=== PATIENT | male | born 1945 | race Caucasian/White ===

== ENCOUNTER 2016-09-08 15:27 | Emergency (ER) | payer OTHER ==
[~2016-09-08] VITALS: Ht 175.3 cm; Wt 97.0 kg
[~2016-09-08 15:27] MED LIST: ASPCH81X PO; ATV/1 PO; EFFSR75 PO; LORA10CA2 PO; OMEP20CA59 PO
[2016-09-08 15:36] VITALS: TEMP 37; Ht 175.3 cm; Wt 97.0 kg
[2016-09-08] MEDS ORDERED: MoRPHine SULFATE 10 MG/ML CARP/VIAL IV STA (15:57)
[2016-09-08] MEDS ORDERED: ONDANSETRON INJ 2 MG/ML 2 ML VIAL IV STA (15:57)
[2016-09-08] MEDS ORDERED: SODIUM CHLORIDE 0.9% 1000ML 1,000 ML IV ONE (16:00)
--- NOTE | 2016-09-08 16:15 | EMERGENCY ROOM VISIT NOTE ---
ED Visit Note First contact with patient: 15:44 I have seen and examined this patient with Hayder Stout and generally agree with the treatment plan as discussed. Current/Historical Medications Scheduled Aspirin (Aspirin Chewable), 81 MG PO QAM Omeprazole (Prilosec), 20 MG PO QAM Venlafaxine Hcl (Effexor Extended Rel), 75 MG PO QAM Scheduled PRN Loratadine (Claritin), 10 MG PO DAILY PRN for PRN Lorazepam (Ativan), 1 MG PO HS PRN for Sleep Allergies Coded Allergies: Penicillins (Unverified Allergy, Intermediate, RASH AND HIVES, 09/08/16) Amoxicillin (Verified Allergy, Unknown, HIVES, 09/08/16) Cefuroxime (Verified Allergy, Unknown, RASH, 09/08/16) Cyclobenzaprine (Unverified Adverse Reaction, Unknown, pt. experienced hallucinations,disorganized thoughts, 09/08/16) Vital Signs Date Time Temp Pulse Resp B/P Pulse Ox O2 Delivery O2 Flow Rate FiO2 09/08/16 15:36 37.0 96 18 139/95 96 Room Air Laboratory Results Test 09/08/16 15:57 Departure Information Referrals Pro,Shady Gipson M.D. (PCP) Patient Instructions My [facility]
[2016-09-08 16:23] LABS: BASO % 0.4 %; BASO ABS # 0.03 K/uL (0-0.2); COMPLETE YES; HEMATOCRIT 43.7 % (42-52); IG% 0.1 %; LYMPH % 31.7 %; MEAN CELL VOLUME 86.5 fL (80-100); MEAN CORPUSCULAR HEMOGLOBIN 30.5 pg (25-34); MEAN CORPUSCULAR HGB CONC 35.2 g/dl (32-36); MEAN PLATELET VOLUME 9.8 fL (7.4-10.4); MONO % 9.3 %; NEUT % 55.5 %; PLATELET COUNT 216 K/uL (130-400); RED BLOOD COUNT 5.05 M/uL (4.7-6.1); WHITE BLOOD COUNT 7.56 K/uL (4.8-10.8)
[2016-09-08 16:39] LABS: BUN/CREATININE RATIO 24.8 (10-20); C-REACTIVE PROTEIN 0.88 mg/dl (0-0.29); CALCIUM 8.9 mg/dl (8.5-10.1)
--- NOTE | 2016-09-08 17:28 | DIAGNOSTIC IMAGING REPORT ---
RIGHT HIP UNILATERAL 2 VIEWS CLINICAL HISTORY: Right hip pain. COMPARISON: None FINDINGS: There are scrotal surgical clips. Alignment of the right hip is anatomic. There is mild osteophytosis of the right hip. There is no evidence of avascular necrosis of the right femoral head. There is mild arthritis of the right sacroiliac joint. IMPRESSION: 1. No acute fracture or dislocation of the right hip. 2. Mild arthritis of the right hip and right sacroiliac joint. Electronically signed by: Ludwin Raza M.D. 09/08/2016 5:27 PM Dictated Date/Time: 09/08/2016 5:26 PM
[2016-09-08] MEDS ORDERED: HYDR-5688 PO (18:11)
[2016-09-08] MEDS ORDERED: NORCO 5/325MG HOME PACK PO ONE (18:15)
[2016-09-08 18:32] VITALS: BP 147/86; PULSE 76; O2SAT 96
--- NOTE | 2016-09-09 15:02 | EMERGENCY ROOM VISIT NOTE ---
ED Visit Note First contact with patient: 15:44 Chief Complaint: Right hip pain. History of Present Illness: Mr. Zimmer a 71-year-old white male who is brought into the ED via wheelchair complaining of lateral right hip pain. Historically patient reports he's had 2 previous lumbar spine surgery with the last one being approximately 5 years ago without complications and has never had any surgeries or injuries today hip. Patient reports approximately one week ago he was riding a treadmill and when he dismounted he was having some mild right hip pain. It has been continuous since then. Yesterday he drove approximately a total of 3 hours and when he got out of the car he developed severe right hip pain. Since that time his pain has been constant. He places his discomfort directly over the hip joint predominantly over the greater trochanter. He rates his discomfort 10/10. Pain is radiating down the lateral aspect of the leg to the foot. His pain worsens with ambulation, palpation, and all movements of the hip. He has not identified any alleviating factors related to the pain. He has not taken any medications for pain prior to arrival at the hospital. He denies any associated symptoms including lumbar back pain, pelvis pain, knee pain, ankle pain, right lower extremity weakness/numbness/tingling, fevers, chills, skin eruptions, genital paresthesias, bowel and bladder dysfunction. Review of Systems: As noted above in history of present illness. 8 body systems were reviewed and found to be negative as noted above. Past Medical History: As previously noted, enlarged prostrate and status post nasal surgery, tonsillectomy and prostrate surgeries. Current Medications: Prilosec, Effexor, aspirin, Claritin and Ativan. Allergies to Medications: Amoxicillin, cefuroxime, cyclobenzaprine. Social History: Patient is currently retired; he feels safe in his home environment; he denies tobacco and alcohol use. Physical Examination: Vital Signs Date Time Temp Pulse Resp B/P Pulse Ox O2 Delivery O2 Flow Rate FiO2 09/08/16 18:32 76 20 147/86 96 Room Air 09/08/16 17:27 74 20 139/80 96 Room Air 09/08/16 15:36 37.0 96 18 139/95 96 Room Air GENERAL: 71-year-old male in moderate distress due to pain, nontoxic-appearing, afebrile and hemodynamically stable. NEUROLOGICAL: Awake, alert and oriented to person, place and time. Answering questions appropriately and following commands. Good hand eye coordination. No focal motor sensory deficits. SKIN: Warm, dry and pink. No soft tissue eruptions or trauma noted. BACK: No tenderness over the bony thoracic, lumbar and sacral spine. No tenderness throughout the paraspinous muscles. Normal range of motion at the waist. No CVA tenderness. THORAX: Lungs sounds are clear to auscultation and equal bilaterally with symmetrical chest wall. ABDOMEN: Flat, soft and nontender. Positive bowel sounds in all quadrants. No guarding, rigidity or organomegaly. RIGHT LOWER EXTREMITY: No gross bony deformity. No shortening or malrotation. Moderate tenderness with minimal swelling over the greater trochanter and lateral aspect of the proximal femur. No skin eruptions or erythema. No tenderness throughout the knee, lower leg, ankle or foot. Decreased range of motion in all movements of the hip due to pain normal range of motion at the knee and ankle. Patellar and Achilles tendon reflexes intact and equal bilaterally. Distal pulses and capillary refill are brisk in the feet. He was able to distinguish light sensations through all dermatomes. ED Course: Patient is assessed as noted above. Laboratory Testing: Test 09/08/16 16:10 Range/Units White Blood Count 7.56 4.8-10.8 K/uL Red Blood Count 5.05 4.7-6.1 M/uL Hemoglobin 15.4 14.0-18.0 g/dL Hematocrit 43.7 42-52 % Mean Corpuscular Volume 86.5 80-100 fL Mean Corpuscular Hemoglobin 30.5 25-34 pg Mean Corpuscular Hemoglobin Concent 35.2 32-36 g/dl Platelet Count 216 130-400 K/uL Mean Platelet Volume 9.8 7.4-10.4 fL Neutrophils (%) (Auto) 55.5 % Lymphocytes (%) (Auto) 31.7 % Monocytes (%) (Auto) 9.3 % Eosinophils (%) (Auto) 3.0 % Basophils (%) (Auto) 0.4 % Neutrophils # (Auto) 4.19 1.4-6.5 K/uL Lymphocytes # (Auto) 2.40 1.2-3.4 K/uL Monocytes # (Auto) 0.70 0.11-0.59 K/uL Eosinophils # (Auto) 0.23 0-0.5 K/uL Basophils # (Auto) 0.03 0-0.2 K/uL RDW Standard Deviation 41.2 36.4-46.3 fL RDW Coefficient of Variation 13.0 11.5-14.5 % Immature Granulocyte % (Auto) 0.1 % Immature Granulocyte # (Auto) 0.01 0.00-0.02 K/uL Erythrocyte Sedimentation Rate 8 0-14 mm/hr Sodium Level 143 136-145 mmol/L Potassium Level 4.0 3.5-5.1 mmol/L Chloride Level 107 98-107 mmol/L Carbon Dioxide Level 24 21-32 mmol/L Anion Gap 12.0 3-11 mmol/L Blood Urea Nitrogen 25 7-18 mg/dl Creatinine 1.00 0.60-1.40 mg/dl Est Creatinine Clear Calc Drug Dose 79.0 ml/min Estimated GFR () 88.0 Estimated GFR (Non- 75.9 BUN/Creatinine Ratio 24.8 10-20 Random Glucose 124 70-99 mg/dl Calcium Level 8.9 8.5-10.1 mg/dl C-Reactive Protein 0.88 0-0.29 mg/dl Right Hip X-Rays: Were read by myself and the radiologist and shows no acute fractures or dislocations. Alignment is anatomical. Mild osteophytosis of the right hip with no evidence of avascular necrosis. Mild arthritis of the right sacroiliac joint was also noted. Patient was hydrated with normal saline, he received 6 mg of morphine IV and 4 mg of Zofran IV. Patient was reassessed multiple times during his stay in the emergency department. Patient was educated and instructed on Walker use. Patient's case was reviewed with Dr. Hi; in apparently assessed the patient we agreed on diagnostic approach, treatment, disposition and plan. Patient was educated about tonight's findings and instructed on his treatment plan; he verbalizes understanding and agreement with this plan. Clinical Impression: Acute right hip pain. Decision-Making: Initially my differential diagnosis I considered lumbar radiculopathy, septic arthritis, avascular necrosis, subcutaneous fracture of the femoral head, hip subluxation and other causes. Disposition: Patient discharged home in stable condition accompanied by his ; prior to departure he was reassessed and subjectively reported he was feeling much better and rated his discomfort 4/10. Plan: Comfort measures were discussed with the patient including a sliding pain medication scale of ibuprofen, acetaminophen and [place]; he was instructed on proper narcotic precautions, Walker use and ice. Patient was encouraged to follow-up with his PCP for recheck in 3-4 days if no better for possible referral to orthopedics. Patient was encouraged return to ED for worsening/uncontrolled pain, hip swelling/redness, fevers or any new/concerning symptoms.
== END 2016-09-08 18:34 | disposition home or self-care (01) ==
LOC: C.EDB 15:29 → C.EDA 18:34
DX: M25.551 Pain in right hip (principal); N40.0 Benign prostatic hyperplasia without lower urinary tract symptoms; Z79.899 Other long term (current) drug therapy

== ENCOUNTER → 2016-09-11 | Outpatient (CLI) | payer OTHER ==
[~2016-09-11] MED LIST changes: +HYDR-5688 PO
[2016-09-11 10:13] LABS: BASO % 0.1 %; BASO ABS # 0.01 K/uL (0-0.2); COMPLETE YES; EOS % 0.6 %; HEMATOCRIT 44.7 % (42-52); IG% 0.3 %; LYMPH % 18.3 %; LYMPH ABS # 1.99 K/uL (1.2-3.4); MEAN CELL VOLUME 86.5 fL (80-100); MEAN CORPUSCULAR HEMOGLOBIN 29.8 pg (25-34); MEAN CORPUSCULAR HGB CONC 34.5 g/dl (32-36); MEAN PLATELET VOLUME 10.1 fL (7.4-10.4); MONO % 3.9 %; NEUT % 76.8 %; PLATELET COUNT 248 K/uL (130-400); RED BLOOD COUNT 5.17 M/uL (4.7-6.1); WHITE BLOOD COUNT 10.86 K/uL (4.8-10.8)
[2016-09-11 10:38] LABS: ALT/SGPT 31 U/L (12-78); AST/SGOT 19 U/L (15-37); BLOOD UREA NITROGEN 17 mg/dl (7-18); BUN/CREATININE RATIO 17.3 (10-20); CARBON DIOXIDE 30 mmol/L (21-32); CHLORIDE 105 mmol/L (98-107); CREATININE 0.97 mg/dl (0.60-1.40); ESTIMATED AVERAGE GLUCOSE 123 mg/dl; GLUCOSE 124 mg/dl (70-99); HA1C FLAG Normal (Normal); POTASSIUM 3.9 mmol/L (3.5-5.1); SODIUM 142 mmol/L (136-145)
[2016-09-11 10:41] LABS: ALB/GLOB RATIO 1.1 (0.9-2); ALKALINE PHOSPHATASE 86 U/L (45-117); CHOLESTEROL 189 mg/dl (0-200); CHOLESTEROL/HDL RATIO 3.2; HDL CHOLESTEROL 60 mg/dl; LDL CHOLESTEROL CALCULATED 116 mg/dl; TRIGLYCERIDES 65 mg/dl (0-150); VERY LOW DENSITY LIPOPROT CALC 13 mg/dl
== END | disposition home or self-care (01) ==
LOC: C.LAB1850 08:19
PROVIDERS: ATTEND Internal Medicine
DX: Z13.1 Encounter for screening for diabetes mellitus (principal); R73.01 Impaired fasting glucose; Z13.0 Encounter for screening for diseases of the blood and blood-forming organs and certain disorders involving the immune mechanism; N40.1 Benign prostatic hyperplasia with lower urinary tract symptoms; F34.1 Dysthymic disorder

== ENCOUNTER → 2016-09-25 | Outpatient (CLI) | payer OTHER | END | disposition home or self-care (01) | LOC: C.LAB1850 15:06 | PROVIDERS: ATTEND Internal Medicine | DX: N40.1 Benign prostatic hyperplasia with lower urinary tract symptoms (principal) ==

== ENCOUNTER → 2016-11-04 | Day surgery (SDC) | payer OTHER ==
[2016-10-22 13:23] VITALS: BMI 31.0
[~2016-11-04] VITALS: Ht 175.3 cm; Wt 97.7 kg
[~2016-11-04] MED LIST changes: -HYDR-5688 PO; +LIDOCAINE HCL 2% 2 ML VIAL (20MG/ML) ONE; +MIDAZOLAM HCL 1 MG/ML 2ML VIAL ONE; +ONDANSETRON INJ 2 MG/ML 2 ML VIAL ONE; +PROPOFOL IV EMULSION 10 MG/ML 20 ML VIAL IV ONE; +SODIUM CHLORIDE 0.9% 500ML 500 ML IV ONE
[2016-11-04 08:46] VITALS: Ht 175.3 cm; Wt 97.7 kg
--- NOTE | 2016-11-04 08:52 | Endo History and Physical ---
History & Physical Date of Service: Nov 04, 2016. Chief Complaint: History of colon polyps Referring Physician: Dr. Saleh History of Present Illness 71 yo CM who presents for colonoscopy secondary to history of colon polyps. Past Medical History Arthritis, Male Genitourinary Prob., Anxiety, Reflux, Sleep Apnea, Depression Past Surgical History Hx Cardiac Surgery: No Hx Internal Defibrillator: No Hx Pacemaker: No Hx Abdominal Surgery: Yes (ABDOMINAL HERNIA) Hx of Implantable Prosthesis: No Hx Post-Op Nausea and Vomiting: No Hx Cancer Surgery: No Hx Thoracic Surgery: No Hx Orthopedic: Yes (LUMBAR FUSION X 2, HAND SURGERY?) Hx Urinary Tract Surgery: No Family History Colon CA Social History Smoking Status: Former Smoker Hx Substance Use: No Hx Alcohol Use: No Allergies Coded Allergies: Penicillins (Unverified Allergy, Intermediate, RASH AND HIVES, 11/04/16) Amoxicillin (Verified Allergy, Unknown, HIVES, 11/04/16) Cefuroxime (Verified Allergy, Unknown, RASH, 11/04/16) Cyclobenzaprine (Unverified Adverse Reaction, Unknown, pt. experienced hallucinations,disorganized thoughts, 11/04/16) Current Medications Reported Home Medications Medications Dose Route/Sig Max Daily Dose Days Date Category Ativan (Lorazepam) 1 Mg Tab 1 Mg PO HS PRN 08/14/16 Reported Claritin (Loratadine) 10 Mg Cap 10 Mg PO DAILY PRN 08/14/16 Reported Aspirin Chewable (Aspirin) 81 Mg Chew 81 Mg PO QAM 08/14/16 Reported Effexor Extended Rel (Venlafaxine Hcl) 75 Mg Capcr 75 Mg PO QAM 02/02/13 Reported Prilosec (Omeprazole) 20 Mg Capcr 20 Mg PO QAM 02/02/13 Reported Vital Signs Weight (Kilograms): 97.73 Height (Feet): 5 Height (Inches): 9 Physical Exam General Appearance: WD/WN, no apparent distress Respiratory/Chest: Auscultation: breath sounds normal Cardiovascular: Heart Auscultation: RRR Abdomen: Bowel Sounds: normal Inspection & Palpation: soft, non-distended, no tenderness, guarding & rebound Assessment and Plan Assessment: 71 yo CM who presents for colonoscopy secondary to history of colon polyps. Plan: Proceed with colonoscopy.
--- NOTE | 2016-11-04 09:29 | GI REPORT ---
Procedure Date: 11/04/2016 8:59 AM Procedure: Colonoscopy Indications: High risk colon cancer surveillance: Personal history of colonic polyps Medicines: Monitored Anesthesia Care Complications: No immediate complications. Estimated Blood Loss: Estimated blood loss: none. Procedure: Pre-Anesthesia Assessment: - Prior to the procedure, a History and Physical was performed, and patient medications and allergies were reviewed. The patient's tolerance of previous anesthesia was also reviewed. The risks and benefits of the procedure and the sedation options and risks were discussed with the patient. All questions were answered, and informed consent was obtained. Prior Anticoagulants: The patient has taken aspirin, last dose was 1 day prior to procedure. ASA Grade Assessment: II - A patient with mild systemic disease. After reviewing the risks and benefits, the patient was deemed in satisfactory condition to undergo the procedure. After I obtained informed consent, the scope was passed under direct vision. Throughout the procedure, the patient's blood pressure, pulse, and oxygen saturations were monitored continuously. The scope was introduced through the anus and advanced to the terminal ileum. The colonoscopy was performed without difficulty. The patient tolerated the procedure well. The quality of the bowel preparation was good. The terminal ileum, ileocecal valve, appendiceal orifice, and rectum were photographed. Findings: A 4 mm polyp was found in the ascending colon. The polyp was sessile. The polyp was removed with a cold snare. Resection and retrieval were complete. Scattered small-mouthed diverticula were found in the entire colon. Non-bleeding internal hemorrhoids were found during retroflexion. Impression: - One 4 mm polyp in the ascending colon, removed with a cold snare. Resected and retrieved. - Diverticulosis in the entire examined colon. - Non-bleeding internal hemorrhoids. Recommendation: - Resume previous diet. - Continue present medications. - Repeat colonoscopy for surveillance based on pathology results. - Return to primary care physician as previously scheduled. Christiano Love DO 11/04/2016 9:27:52 AM This report has been signed electronically. Note Initiated On: 11/04/2016 8:59 AM I attest to the content of the Intraoperative Record and orders documented therein, exceptions below
[2016-11-04 09:57] VITALS: BP 133/85; PULSE 76; O2SAT 96
--- NOTE | 2016-11-04 10:02 | Discharge Instructions ---
Endoscopy Patient Instructions Date / Procedure(s) Performed Nov 04, 2016. Colonoscopy Allergy Information Coded Allergies: Penicillins (Unverified Allergy, Intermediate, RASH AND HIVES, 11/04/16) Amoxicillin (Verified Allergy, Unknown, HIVES, 11/04/16) Cefuroxime (Verified Allergy, Unknown, RASH, 11/04/16) Cyclobenzaprine (Unverified Adverse Reaction, Unknown, pt. experienced hallucinations,disorganized thoughts, 11/04/16) Discharge Date / Findings Nov 04, 2016. Colon polyp Diverticulosis Internal hemorrhoids Medication Instructions OK to resume all medications today as prescribed Reported Home Medications Medications Dose Route/Sig Max Daily Dose Days Date Category Ativan (Lorazepam) 1 Mg Tab 1 Mg PO HS PRN 08/14/16 Reported Claritin (Loratadine) 10 Mg Cap 10 Mg PO DAILY PRN 08/14/16 Reported Aspirin Chewable (Aspirin) 81 Mg Chew 81 Mg PO QAM 08/14/16 Reported Effexor Extended Rel (Venlafaxine Hcl) 75 Mg Capcr 75 Mg PO QAM 02/02/13 Reported Prilosec (Omeprazole) 20 Mg Capcr 20 Mg PO QAM 02/02/13 Reported Provider Instructions Activity Restrictions - No exercising or heavy lifting for 24 hours. - Do not drink alcohol the day of the procedure. - Do not drive a car or operate machinery until the day after the procedure. - Do not make any important decisions or sign important papers in 24 hours after the procedure. Following Day: - Return to full activity which may include returning to work/school. Diet Start your diet with liquids and light foods (jello, soup, juice, toast). Then eat your usual diet if not nauseated. Treatment For Common After Affects For mild abdominal pain, bloating, or excessive gas: - Rest - Eat lightly - Lie on right side Follow-Up Information Follow-up with DR ESTEVES as scheduled Anesthesia Information What You Should Know You have had a procedure that required some medicine to reduce anxiety and discomfort. This treatment is called moderate sedation. After receiving the treatment, you may be sleepy, but you will be able to breathe on your own. The effects of the treatment may last for several hours. Follow these instructions along with Activity/Diet recommendations noted above: * Do NOT do anything where dizziness or clumsiness would be dangerous. * Rest quietly at home today, then you can be up and about tomorrow. * Have a responsible person stay with you the rest of today. * You may have had an I.V. today. If so, you may take the dressing off later today. Recommendations Call your doctor if: * Trouble breathing * Continuous vomiting for more than 24 hours * Temperature above 101 degrees * Severe abdominal pain or bloating * Pain not relieved by pain medicine ordered * There is increased drainage or redness from any incision * A large amount of rectal bleeding greater than 2-3 tablespoons. (If you had a polyp/s removed or have hemorrhoids, a small amount of blood - from the rectum is to be expected.) * You have any unanswered questions or concerns. IN THE EVENT OF A SERIOUS EMERGENCY, GO TO THE NEAREST EMERGENCY ROOM Your discharge instructions were prepared by provider Christiano Love. Patient Instructions Signature Page Jose Zimmer Patient (or Guardian) Signature/Date: I have read and understand the instructions given to me by my caregivers. Caregiver/RN/Doctor Signature/Date: The above-named patient and/or guardian has received patient instructions on this date. + Original Patient Signature Page (only) stays with chart. Please make copy for patient.
--- NOTE | 2016-11-04 10:36 | Anesthesiology Progress Note ---
Anesthesia Post Op Note Date & Time Nov 04, 2016 at 10:35 Vital Signs Pain Intensity: 0 Vital Signs Past 12 Hours Date Time Temp Pulse Resp B/P Pulse Ox O2 Delivery O2 Flow Rate FiO2 11/04/16 09:57 76 20 133/85 96 Room Air 11/04/16 09:45 74 20 143/92 96 Room Air 11/04/16 09:29 68 20 144/88 97 Room Air 11/04/16 08:51 36.9 69 20 169/93 95 Room Air Notes Mental Status: alert / awake / arousable, participated in evaluation Pt Amnestic to Procedure: Yes Nausea / Vomiting: adequately controlled Pain: adequately controlled Airway Patency, RR, SpO2: stable & adequate BP & HR: stable & adequate Hydration State: stable & adequate Anesthetic Complications: no major complications apparent
== END | disposition home or self-care (01) ==
LOC: C.GI 08:31
PROVIDERS: ATTEND Internal Medicine
DX: Z12.11 Encounter for screening for malignant neoplasm of colon (principal); Z86.010 Personal history of colon polyps; D12.2 Benign neoplasm of ascending colon; K64.8 Other hemorrhoids; K57.30 Diverticulosis of large intestine without perforation or abscess without bleeding; K21.9 Gastro-esophageal reflux disease without esophagitis; F32.9 Major depressive disorder, single episode, unspecified; G47.30 Sleep apnea, unspecified; M19.90 Unspecified osteoarthritis, unspecified site; Z87.891 Personal history of nicotine dependence; Z80.0 Family history of malignant neoplasm of digestive organs

== ENCOUNTER 2016-11-15 03:19 | Emergency (ER) | payer OTHER ==
[~2016-11-15] VITALS: Ht 177.8 cm; Wt 95.0 kg
[~2016-11-15 03:19] MED LIST changes: -LIDOCAINE HCL 2% 2 ML VIAL (20MG/ML) ONE; -MIDAZOLAM HCL 1 MG/ML 2ML VIAL ONE; -ONDANSETRON INJ 2 MG/ML 2 ML VIAL ONE; -PROPOFOL IV EMULSION 10 MG/ML 20 ML VIAL IV ONE; -SODIUM CHLORIDE 0.9% 500ML 500 ML IV ONE
[2016-11-15] MEDS ORDERED: SODIUM CHLORIDE 0.9% 500ML 500 ML IV STA (03:26)
[2016-11-15] MEDS ORDERED: SODIUM CHLORIDE 0.9% 1000ML 1,000 ML IV STA (03:26)
--- NOTE | 2016-11-15 03:38 | EMERGENCY ROOM VISIT NOTE ---
History Report prepared by Lavern: Manuel Cruz Under the Supervision of: Dr. Rosa Driscoll M.D. First contact with patient: 03:22 Chief Complaint: ILLNESS Stated Complaint: GENERAL ILLNESS History of Present Illness The patient is a 71 year old male who presents to the Emergency Room with complaints of worsening intermittent diarrhea for the past two days. The patient 's states that prior to arrival, she found the patient on the floor of the bathroom after laying down due to dizziness. The patient additionally states that he has been nauseous and vomited, and he has sharp abdominal pain. The patient denies any fever, hematochezia, chest pain, or shortness of breath. He states that he does not have any chronic medical problems, and no one around him has been sick. He states that he has not recently been taking any antibiotics. Per his , whenever he gets the flu he has very similar symptoms to this. Source of History: patient, spouse/significant other Onset: two days ago Position: other (global) Quality: other (diarrhea) Timing: intermittent, worsening Associated Symptoms: + abdominal pain, + vomiting, No SOB, No chest pain, No fevers, No hematochezia Review of Systems See HPI for pertinent positives & negatives. A total of 10 systems reviewed and were otherwise negative. Past Medical & Surgical Surgical Problems: (1) History of back surgery Family History Cancer Social History Smoking Status: Former Smoker Marital Status: Housing Status: lives with family Occupation Status: employed Current/Historical Medications Scheduled Aspirin (Aspirin Chewable), 81 MG PO QAM Omeprazole (Prilosec), 20 MG PO QAM Venlafaxine Hcl (Effexor Extended Rel), 75 MG PO QAM Scheduled PRN Loratadine (Claritin), 10 MG PO DAILY PRN for PRN Lorazepam (Ativan), 1 MG PO HS PRN for Sleep Allergies Coded Allergies: Penicillins (Unverified Allergy, Intermediate, RASH AND HIVES, 11/04/16) Amoxicillin (Verified Allergy, Unknown, HIVES, 11/04/16) Cefuroxime (Verified Allergy, Unknown, RASH, 11/04/16) Cyclobenzaprine (Unverified Adverse Reaction, Unknown, pt. experienced hallucinations,disorganized thoughts, 11/04/16) Physical Exam Vital Signs Date Time Temp Pulse Resp B/P Pulse Ox O2 Delivery O2 Flow Rate FiO2 11/15/16 03:40 36.6 62 14 145/83 94 Room Air Physical Exam Vital signs reviewed. General: Well-appearing male, in no significant distress. HEENT: No scleral icterus, PERRLA, neck supple. Atraumatic. Cardiovascular: Regular rate and rhythm, no extra sounds. Pulmonary: Clear to auscultation bilaterally, normal work of breathing. Abdomen: Mildly distended. Positive tympany. No rebound or guarding. Musculoskeletal: Atraumatic, no peripheral edema. Neurologic: Patient awake alert and oriented x 3. Skin: Warm, dry, no rash Medical Decision & Procedures ER Provider Diagnostic Interpretation: X-ray results as stated below per interpretation by me: No focal lung consolidation. No free air. No obstruction Laboratory Results 11/15/16 04:15 Red Blood Count 5.08, Mean Corpuscular Volume 88.8, Mean Corpuscular Hemoglobin 30.9, Mean Corpuscular Hemoglobin Concent 34.8, Mean Platelet Volume 9.6, Neutrophils (%) (Auto) 64.0, Lymphocytes (%) (Auto) 25.1, Monocytes (%) (Auto) 8.2, Eosinophils (%) (Auto) 2.2, Basophils (%) (Auto) 0.2, Neutrophils # (Auto) 4.17, Lymphocytes # (Auto) 1.63, Monocytes # (Auto) 0.53, Eosinophils # (Auto) 0.14, Basophils # (Auto) 0.01 11/15/16 04:15 Test 11/15/16 04:15 White Blood Count 6.50 K/uL (4.8-10.8) Red Blood Count 5.08 M/uL (4.7-6.1) Hemoglobin 15.7 g/dL (14.0-18.0) Hematocrit 45.1 % (42-52) Mean Corpuscular Volume 88.8 fL (80-100) Mean Corpuscular Hemoglobin 30.9 pg (25-34) Mean Corpuscular Hemoglobin Concent 34.8 g/dl (32-36) Platelet Count 164 K/uL (130-400) Mean Platelet Volume 9.6 fL (7.4-10.4) Neutrophils (%) (Auto) 64.0 % Lymphocytes (%) (Auto) 25.1 % Monocytes (%) (Auto) 8.2 % Eosinophils (%) (Auto) 2.2 % Basophils (%) (Auto) 0.2 % Neutrophils # (Auto) 4.17 K/uL (1.4-6.5) Lymphocytes # (Auto) 1.63 K/uL (1.2-3.4) Monocytes # (Auto) 0.53 K/uL (0.11-0.59) Eosinophils # (Auto) 0.14 K/uL (0-0.5) Basophils # (Auto) 0.01 K/uL (0-0.2) RDW Standard Deviation 42.6 fL (36.4-46.3) RDW Coefficient of Variation 13.1 % (11.5-14.5) Immature Granulocyte % (Auto) 0.3 % Immature Granulocyte # (Auto) 0.02 K/uL (0.00-0.02) Anion Gap 5.0 mmol/L (3-11) Est Creatinine Clear Calc Drug Dose 72.3 ml/min Estimated GFR () 78.4 Estimated GFR (Non- 67.7 BUN/Creatinine Ratio 27.0 (10-20) Calcium Level 7.9 mg/dl (8.5-10.1) Magnesium Level 2.3 mg/dl (1.8-2.4) Total Bilirubin 0.4 mg/dl (0.2-1) Direct Bilirubin 0.1 mg/dl (0-0.2) Aspartate Amino Transf (AST/SGOT) 18 U/L (15-37) Alanine Aminotransferase (ALT/SGPT) 31 U/L (12-78) Alkaline Phosphatase 79 U/L (45-117) Total Protein 6.6 gm/dl (6.4-8.2) Albumin 3.3 gm/dl (3.4-5.0) Lipase 154 U/L (73-393) Laboratory results per my review. Medications Administered Medications (Trade) Dose Ordered Sig/Kendra Route Start Time Stop Time Status Last Admin Dose Admin Sodium Chloride 500 ml @ 999 mls/hr Q31M STAT IV 11/15/16 03:26 11/15/16 03:57 DC 11/15/16 03:57 999 MLS/HR Sodium Chloride (Nss 1000ml) 1,000 ml @ 200 mls/hr Q5H STAT IV 11/15/16 03:26 11/15/16 08:25 4/21/17 03:57 200 MLS/HR ED Course 0324: Past medical records reviewed. The patient was evaluated in room A10. A complete history and physical examination was performed. 0326: Sodium Chloride 1000 ml @ 200 mls/hr IV, Sodium Chloride 500 ml @ 999 mls/ hr IV 0617: Upon reevaluation, the patient appeared to have improvement of his symptoms. I discussed findings with him. He verbalized agreement of the treatment plan. He was discharged home. Medical Decision Differential diagnoses include: viral illness, food borne illness, C Diff, GI bleed, colitis, viral syndrome. This patient was evaluated and appeared to be in no significant distress. IV access was obtained and laboratory work was drawn. The patient was hydrated with normal saline solution. Laboratory work reveals a mild hypocalcemia and hyperglycemia. Stool studies were obtained and are sent for culture. C. difficile studies are negative. Patient was discharged in care of his . He was asked to increase fluids today and avoid dairy. He will maintain a bland diet. Patient will follow-up with his physician this week for reevaluation and return to the ER for worsening of symptoms or any medical concerns. Impression Primary Impression: Diarrhea Scribe Attestation The scribe's documentation has been prepared under my direction and personally reviewed by me in its entirety. I confirm that the note above accurately reflects all work, treatment, procedures, and medical decision making performed by me. Departure Information Dispostion Home / Self-Care Referrals Shady Saleh M.D. (PCP) Forms HOME CARE DOCUMENTATION FORM, IMPORTANT VISIT INFORMATION, WORK / SCHOOL INSTRUCTIONS Patient Instructions My [facility] Additional Instructions Diagnosis: Diarrhea Drink plenty of clear fluids. Avoid dairy until symptoms resolve. Maintain a bland diet. Follow-up with your physician for reevaluation this week. Return to the ER for worsening of symptoms or any medical concerns. Problem Qualifiers Primary Impression: Diarrhea Diarrhea type: infectious Qualified Codes: A09 - Infectious gastroenteritis and colitis, unspecified
[2016-11-15 03:40] VITALS: Ht 177.8 cm; Wt 95.0 kg
[2016-11-15 04:32] LABS: BASO % 0.2 %; BASO ABS # 0.01 K/uL (0-0.2); COMPLETE YES; EOS % 2.2 %; HEMATOCRIT 45.1 % (42-52); IG% 0.3 %; LYMPH % 25.1 %; LYMPH ABS # 1.63 K/uL (1.2-3.4); MEAN CELL VOLUME 88.8 fL (80-100); MEAN CORPUSCULAR HEMOGLOBIN 30.9 pg (25-34); MEAN CORPUSCULAR HGB CONC 34.8 g/dl (32-36); MEAN PLATELET VOLUME 9.6 fL (7.4-10.4); MONO % 8.2 %; PLATELET COUNT 164 K/uL (130-400); RED BLOOD COUNT 5.08 M/uL (4.7-6.1)
[2016-11-15 04:49] LABS: CALCIUM 7.9 mg/dl (8.5-10.1); CREATININE 1.1 mg/dl (0.60-1.40); MAGNESIUM 2.3 mg/dl (1.8-2.4); POTASSIUM 4.2 mmol/L (3.5-5.1)
[2016-11-15 07:10] VITALS: BP 136/74; PULSE 65; TEMP 36.6; O2SAT 96
--- NOTE | 2016-11-15 07:23 | DIAGNOSTIC IMAGING REPORT ---
PA CHEST WITH ABDOMINAL SERIES CLINICAL HISTORY: Abdominal distention. Diarrhea. FINDINGS: A PA chest radiograph is compared to study dated 06/15/2014. The heart is enlarged and there is atherosclerotic calcification of the thoracic aorta. The pulmonary vasculature is noncongested. Chronic interstitial thickening is unchanged. There is left basilar atelectasis. No airspace consolidation is seen typical for pneumonia and there is no large pleural effusion. No pneumothorax is identified. The skeletal structures are osteopenic. Degenerative change is noted throughout the thoracic spine. Supine and erect abdominal radiographs are obtained. No prior studies are available for comparison at the time of dictation. There is a nonobstructed abdominal bowel gas pattern. Mild colonic fecal retention is observed. No evidence of intraperitoneal free air is seen. There are tiny calcified phleboliths in the pelvis. Joy R spondylosis is observed with evidence of L3-L5 spinal fusion. The bony pelvis appears intact. IMPRESSION: 1. Cardiomegaly with no acute cardiopulmonary abnormality. 2. Nonobstructed abdominal bowel gas pattern. Electronically signed by: Jv Mendoza M.D. 11/15/2016 7:21 AM Dictated Date/Time: 11/15/2016 7:19 AM
== END 2016-11-15 07:11 | disposition home or self-care (01) ==
LOC: EDBD 03:19 → C.EDA 03:21
DX: A09 Infectious gastroenteritis and colitis, unspecified (principal); R42 Dizziness and giddiness; R11.2 Nausea with vomiting, unspecified; R10.9 Unspecified abdominal pain; Z79.82 Long term (current) use of aspirin; Z79.899 Other long term (current) drug therapy; Z87.891 Personal history of nicotine dependence

== ENCOUNTER → 2017-05-19 | Outpatient (CLI) | payer OTHER | END | disposition home or self-care (01) | LOC: C.LAB1850 13:04 | PROVIDERS: ATTEND Urology | DX: N52.9 Male erectile dysfunction, unspecified (principal) ==

== ENCOUNTER → 2017-11-04 | Outpatient (CLI) | payer OTHER ==
[2017-11-04 09:44] LABS: BASO % 0.5 %; BASO ABS # 0.03 K/uL (0-0.2); EOS % 4.6 %; HEMATOCRIT 47.2 % (42-52); HEMOGLOBIN 16.2 g/dL (14.0-18.0); IG# 0.01 K/uL (0.00-0.02); LYMPH % 46.7 %; LYMPH ABS # 3.02 K/uL (1.2-3.4); MEAN CELL VOLUME 88.2 fL (80-100); MEAN CORPUSCULAR HEMOGLOBIN 30.3 pg (25-34); MEAN CORPUSCULAR HGB CONC 34.3 g/dl (32-36); MEAN PLATELET VOLUME 9.9 fL (7.4-10.4); MONO % 6.8 %; MONO ABS # 0.44 K/uL (0.11-0.59); NEUT % 41.2 %; NEUT ABS # 2.67 K/uL (1.4-6.5); PLATELET COUNT 188 K/uL (130-400); RED CELL DISTRIBUTION WIDTH CV 13.1 % (11.5-14.5); RED CELL DISTRIBUTION WIDTH SD 41.5 fL (36.4-46.3); WHITE BLOOD COUNT 6.47 K/uL (4.8-10.8)
[2017-11-04 10:02] LABS: HEMOGLOBIN A1C 6.1 % (4.5-5.6)
[2017-11-04 10:23] LABS: ALBUMIN 3.6 gm/dl (3.4-5.0); ALT/SGPT 28 U/L (12-78); AST/SGOT 16 U/L (15-37); BLOOD UREA NITROGEN 23 mg/dl (7-18); CARBON DIOXIDE 34 mmol/L (21-32); CREATININE 1.02 mg/dl (0.60-1.40); GLUCOSE 107 mg/dl (70-99); POTASSIUM 3.7 mmol/L (3.5-5.1); SODIUM 138 mmol/L (136-145)
[2017-11-04 10:25] LABS: ALKALINE PHOSPHATASE 73 U/L (45-117); CHOLESTEROL 199 mg/dl (0-200); LDL CHOLESTEROL CALCULATED 127 mg/dl; TOTAL PROTEIN 7.1 gm/dl (6.4-8.2)
== END | disposition home or self-care (01) ==
LOC: C.LAB1850 08:42
PROVIDERS: ATTEND Internal Medicine
DX: R73.01 Impaired fasting glucose (principal); Z13.220 Encounter for screening for lipoid disorders

== ENCOUNTER → 2017-12-08 | Outpatient (CLI) | payer OTHER | END | disposition home or self-care (01) | LOC: C.LAB1850 15:42 | PROVIDERS: ATTEND Internal Medicine Pulmonary Disease | DX: G25.81 Restless legs syndrome (principal) ==

== ENCOUNTER 2018-10-03 18:20 | Inpatient (IN) ==
[2018-10-03] MEDS ORDERED: SODIUM CHLORIDE 0.9% 1000ML 1,000 ML IV SCH (18:45)
[2018-10-03 19:28] LABS: Albumin Globulin Ratio 0.9 (0.9-2); Albumin Level 3.1 gm/dl (3.4-5.0); BUN Creatinine Ratio 9.5 (10-20); Bilirubin,Total 0.7 mg/dl (0.2-1); Calcium 8.7 mg/dl (8.5-10.1); Creatinine Clr Calc Pharmacy 16.1 ml/min; Est GFR (African American) 12.6; Est GFR (Non-African American) 10.9; Globulin 3.3 gm/dl (2.5-4.0); Potassium 3.9 mmol/L (3.5-5.1); Total Protein 6.4 gm/dl (6.4-8.2)
[2018-10-03 19:31] LABS: Basophils # (auto) 0.01 K/uL (0-0.2); Basophils % (auto) 0.1 %; Eosinophils # (auto) 0.15 K/uL (0-0.5); Eosinophils % (auto) 1.8 %; Hematocrit (blood only) 41.7 % (42-52); Hemoglobin 14.6 g/dL (14.0-18.0); Immature Granulocytes # (auto) 0.02 K/uL (0.00-0.02); Immature Granulocytes % (auto) 0.2 %; Lymphocytes # (auto) 1.37 K/uL (1.2-3.4); Lymphocytes % (auto) 16.8 %; Mean Corpuscular Volume 88.9 fL (80-100); Mean Platelet Volume 9.8 fL (7.4-10.4); Monocytes # (auto) 0.61 K/uL (0.11-0.59); Monocytes % (auto) 7.5 %; Neutrophils # (auto) 6.01 K/uL (1.4-6.5); Neutrophils % (auto) 73.6 %; Platelet Count 150 K/uL (130-400); RDW Coefficient of Variation 13.2 % (11.5-14.5); RDW Standard Deviation 42.8 fL (36.4-46.3); Red Blood Count 4.69 M/uL (4.7-6.1); White Blood Count 8.17 K/uL (4.8-10.8)
--- NOTE | 2018-10-03 20:27 | Ultrasound Report ---
RENAL ULTRASOUND HISTORY: Right flank pain, not voiding. known stone COMPARISON: Abdomen and pelvis CT 10/02/2018. FINDINGS: Right kidney: 10.3 cm. There is a 5 mm nonenhancing stone within the interpolar region of the right k idney. This remains unchanged. There is suggestion of mild right hydronephrosis. Normal corticomedull tonya differentiation and cortical thickness. Left kidney: 10.9 cm. Mild left hydronephrosis, unchanged. Normal corticomedullary differentiation an d cortical thickness. Bladder: Not identified and may be decompressed. IMPRESSION: 1. Mild left hydronephrosis, unchanged. 2. Interval development of mild right hydronephrosis. 3. Stable right-sided nephrolithiasis. 4. The bladder was not identified on this study. Electronically signed by: Rene Munoz M.D. 10/03/2018 8:26 PM
[2018-10-03] MEDS ORDERED: HYDROmorphone INJ 1 MG/ML SYRINGE IV STA (21:43)
--- NOTE | 2018-10-03 21:47 | CT Scan Report ---
ABDOMEN AND PELVIS CT WITHOUT CONTRAST CT DOSE: 744.65 mGy.cm HISTORY: Right flank pain. hx L stone, ? right stone TECHNIQUE: Multiaxial CT images of the abdomen and pelvis were performed without contrast. A dose lo wering technique was utilized adhering to the principles of ALARA. COMPARISON STUDY: Abdomen and pelvis CT 10/02/2018. FINDINGS: Bibasilar linear densities consistent with subsegmental atelectasis. Trace left pleural eff usion. Stable 4 mm stone within the right kidney. Right perinephric edema has progressed. Left perine phric edema, unchanged. Interval development of mild right hydronephrosis. This extends to the level of the ureterovesical junction. Best seen on image 392 there appears to be a punctate stone within th e right ureterovesical junction. No change in mild left hydronephrosis. There are few punctate stones within the distal left ureter/ureterovesical junction. The bladder is completely decompressed. This may account for the bladder wall thickening. Colonic diverticulosis. No evidence for diverticulitis. Suboptimal evaluation for bowel pathology due to the lack of intravenous and oral contrast. However, there is no definite bowel wall thickening or obstruction. Normal appendix. Mild hepatic steatosis. C holecystectomy. The unenhanced spleen, adrenal glands, and pancreas are unremarkable. No retroperiton eal lymphadenopathy. Small hiatus hernia. Posterior decompression fusion within the lumbar spine. IMPRESSION: 1. There is a punctate stone within the right ureterovesical junction resulting in mild right hydrone phrosis. 2. There are few punctate stones within the distal left ureter/ureterovesical junction resulting and mild left hydronephrosis. 3. Right-sided nephrolithiasis. 4. Trace left pleural effusion. 5. Additional findings as described above. Electronically signed by: Rene Munoz M.D. 10/03/2018 9:45 PM
--- NOTE | 2018-10-03 21:59 | Emergency Department Note ---
Entered by Kala Prasad acting as a scribe for Renzo Soto M.D. History of Present Illness General Chief complaint: Unable to Void Stated complaint: KIDNEY PAIN,HASN'T PEED SINCE YESTERDAY Source: patient History of Present Illness Onset (ago): day(s) 1 Location: abdomen (kidney stone) Pain Consistency: + other (episode) Maximum Pain Intensity: 0 Relieved By: + none Associated symptoms: + denies other symptoms (bowel movement) and + other (abdominal pain); no fever/chills and no nausea/vomiting Treatments prior to arrival: other (laxative) The patient is a 73 year old M who presents to the Emergency Room with complaints of an episode of a kidney stone starting 1 day ago. He states that he was in the ED yesterday and was diagnosed with a kidney stone. He adds that the kidney stone will not pass. He notes that since his trip to the ED yesterday, he has not been able to urinate except for minimal dribbles of urine. He adds that he drank a lot of fluid today. He states that he had abdominal pain earlier this morning but notes that it was relived with medication. He adds that he thinks that his abdominal pain has traveled from the left side to the right side of his abdomen. He denies having bowel movements, fever, nausea, and vomiting. He states that he took a laxative for his absent bowel movements but it did not relieve his symptoms. He notes that he has a history of prostate issues but denies a history of kidney issues. Home Medications Home Medications Medication Instructions Recorded Confirmed Type omeprazole 20 mg PO QAM #0 cap 02/02/13 10/03/18 History venlafaxine 75 mg PO QAM #0 cap 02/02/13 10/03/18 History loratadine 10 mg PO DAILY PRN #0 cap 08/14/16 10/03/18 History pramipexole 0.75 mg PO HS 09/22/18 10/03/18 History oxycodone-acetaminophen 1 tab PO Q6H PRN #14 tab 10/02/18 10/03/18 Rx tamsulosin [Flomax] 0.4 mg PO DAILY #10 cap 10/02/18 10/03/18 Rx difluprednate [Durezol] 1 drops OPR .every three hours 10/03/18 10/03/18 History Allergies Allergy/AdvReac Type Severity Reaction Status Date / Time Penicillins Allergy Intermediate RASH AND Verified 10/03/18 19:51 HIVES amoxicillin Allergy Unknown HIVES Verified 10/03/18 19:51 cefuroxime Allergy Unknown RASH Verified 10/03/18 19:51 cyclobenzaprine AdvReac Unknown pt. Verified 10/03/18 19:51 experienced hallucinations,disorganized thoughts Past Med/Surg History Medical History Acute renal failure Anxiety BPH (benign prostatic hyperplasia) Depression GERD (gastroesophageal reflux disease) HTN (hypertension) Inguinal hernia Osteoarthritis Restless leg syndrome Sleep apnea CPAP Surgical History History of right cataract surgery H/O inguinal hernia repair History of anesthesia reaction SLOW TO WAKE History of cholecystectomy 04/2018 [facility] History of colonoscopy W/ POLYPECTOMY History of lumbar discectomy S/P TURP Status post correction of deviated nasal septum Social History Preferred Language: Upper Sorbian Beliefs That Will Affect Care: None Current Living Situation: Spouse Feels Safe at Home: Yes Smoking Status: Never smoker Hx Alcohol Use: Yes Hx Substance Use: No Review of Systems See HPI for pertinent positives & negatives. and A total of 10 systems reviewed and were otherwise negative Physical Exam Vital Signs Vital Signs - 24 hr 10/03/18 18:23 10/03/18 19:56 10/03/18 21:44 Temperature 36.7 C Temperature Source Oral Sepsis Recent Fever Within 48 Hours No Sepsis New/Unexplained Change in Mental Status No Sepsis Action Taken by Nursing No Action Required Pulse Rate 106 H Pulse Rate [Right Finger] 89 89 Pulse Rhythm [Right Finger] Respiratory Rate 18 18 20 Respiratory Effort / Characteristics Non-Labored Spontaneous Respiratory Depth Normal Respiratory Pattern Regular Blood Pressure 155/80 H Blood Pressure [Right Arm] 180/84 H 145/82 H Blood Pressure Mean 105 Blood Pressure Mean [Right Arm] 116 103 Pulse Oximetry 95 93 93 Oxygen Delivery Method Room Air 10/03/18 22:36 10/03/18 23:22 Temperature 37 C Temperature Source Oral Sepsis Recent Fever Within 48 Hours Sepsis New/Unexplained Change in Mental Status Sepsis Action Taken by Nursing Pulse Rate Pulse Rate [Right Finger] 98 H 98 H Pulse Rhythm [Right Finger] Regular Respiratory Rate 18 20 Respiratory Effort / Characteristics Non-Labored Respiratory Depth Normal Respiratory Pattern Blood Pressure Blood Pressure [Right Arm] 162/77 H 192/91 H Blood Pressure Mean Blood Pressure Mean [Right Arm] 105 124 Pulse Oximetry 93 92 Oxygen Delivery Method Room Air Room Air GENERAL: Awake, alert, well-appearing, in no distress HENT: Normocephalic, atraumatic. EYES: Normal conjunctiva. Sclera non-icteric. NECK: Supple. No nuchal rigidity. RESPIRATORY: Clear to auscultation. No wheezes. Normal respiratory effort. CARDIAC: Normal rate. Normal rhythm. Extremities warm and well perfused. GI: Soft, non-distended. No tenderness to palpation. No rebound or guarding. Non tender abdominal ventral hernias. RECTAL: Deferred. MUSCULOSKELETAL: Atraumatic. Chest examination reveals no tenderness. LOWER EXTREMITIES: Calves are equal size bilaterally and non-tender. No edema NEURO: Normal sensorium. No sensory or motor deficits noted. No facial droop. SKIN: Warm and dry. No rash or jaundice noted. Course 183: Past medical records reviewed. The patient was evaluated in room C7, and a complete history and physical examination were performed. 2154: I reviewed the patient's case with Dr. Darien Brannon, [facility]. He will evaluate the patient for further management. 3: I reviewed the patient's case with Dr. Jacob Mckeon, [facility] Hospitalist . He will evaluate the patient for further management. Consultations Consultation #1: I reviewed the patient's case with Dr. Darien Brannon, [facility]. He will evaluate the patient for further management. Time: 21:55 Consultation #2: I reviewed the patient's case with Dr. Jacob Mckeon, [facility] Hospitalist. He will evaluate the patient for further management. Time: 22:13 Administered Medications Discontinued Medications Hydromorphone HCl (Dilaudid) 0.5 mg IV NOW STA Stop: 10/03/18 21:44 Last Admin: 10/03/18 21:49 Dose: 0.5 mg Documented by: [id number] Sodium Chloride (Nss 1000ml) 1,000 mls @ 999 mls/hr IV .Q1H1M EVERARDO Stop: 10/03/18 19:45 Last Infusion: 10/03/18 19:56 Dose: 0 mls/hr Documented by: [id number] Admin: 10/03/18 18:55 Dose: 999 mls/hr Documented by: [id number] Imipenem/Cilastatin Sodium 500 (mg/ Dextrose) 110 mls @ 100 mls/hr IV NOW STA Stop: 10/03/18 23:19 Last Admin: 10/03/18 22:45 Dose: 100 mls/hr Documented by: [id number] Medical Decision Making Differential Diagnosis Etiologies such as appendicitis, diverticulitis, PUD, biliary pathology, UTI, pancreatitis, obstruction, mesenteric ischemia, aortic pathology, infections, inflammatory bowel disease, renal colic, as well as others were entertained. Medical Records Attestation: I reviewed the patient's medical records. Home Medications Current Medication List: was personally reviewed by me Laboratory Data Attestation: I reviewed the patient's lab results. Result diagrams: 10/03/18 18:53 10/03/18 18:53 Lab Results 10/03/18 10/03/18 Range/Units 18:53 18:53 WBC 8.17 (4.8-10.8) K/uL RBC 4.69 L (4.7-6.1) M/uL Hgb 14.6 (14.0-18.0) g/dL Hct 41.7 L (42-52) % MCV 88.9 (80-100) fL MCH 31.1 (25-34) pg MCHC 35.0 (32-36) g/dL RDW Std Deviation 42.8 (36.4-46.3) fL RDW Coeff of Cedric 13.2 (11.5-14.5) % Plt Count 150 (130-400) K/uL MPV 9.8 (7.4-10.4) fL Immature Gran % (Auto) 0.2 % Neut % (Auto) 73.6 % Lymph % (Auto) 16.8 % [place] % (Auto) 7.5 % Eos % (Auto) 1.8 % Baso % (Auto) 0.1 % Immature Gran # (Auto) 0.02 (0.00-0.02) K/uL Neut # (Auto) 6.01 (1.4-6.5) K/uL Lymph # (Auto) 1.37 (1.2-3.4) K/uL [place] # (Auto) 0.61 H (0.11-0.59) K/uL Eos # (Auto) 0.15 (0-0.5) K/uL Baso # (Auto) 0.01 (0-0.2) K/uL Sodium 138 (136-145) mmol/L Potassium 3.9 (3.5-5.1) mmol/L Chloride 104 (98-107) mmol/L Carbon Dioxide 25 (21-32) mmol/L Anion Gap 9.0 (3-11) BUN 46 H D (7-18) mg/dl Creatinine 4.94 H* D (0.6-1.4) mg/dl Est Cr Clr Drug Dosing 16.1 ml/min Est GFR ( Amer) 12.6 Est GFR (Non-Af Amer) 10.9 BUN/Creatinine Ratio 9.5 L (10-20) Glucose 137 H (70-99) mg/dl Calcium 8.7 (8.5-10.1) mg/dl Total Bilirubin 0.7 (0.2-1) mg/dl AST 40 H (15-37) U/L ALT 87 H (12-78) U/L Alkaline Phosphatase 79 (45-117) U/L Total Protein 6.4 (6.4-8.2) gm/dl Albumin 3.1 L (3.4-5.0) gm/dl Globulin 3.3 (2.5-4.0) gm/dl Albumin/Globulin Ratio 0.9 (0.9-2) Lipase 78 (73-393) U/L Imaging Data Radiologist's Impression: Radiology results as stated below per my review and the radiologist's interpretation: RENAL ULTRASOUND HISTORY: Right flank pain, not voiding. known stone COMPARISON: Abdomen and pelvis CT 10/02/2018. FINDINGS: Right kidney: 10.3 cm. There is a 5 mm nonenhancing stone within the interpolar region of the right kidney. This remains unchanged. There is suggestion of mild right hydronephrosis. Normal corticomedullary differentiation and cortical thickness. Left kidney: 10.9 cm. Mild left hydronephrosis, unchanged. Normal corticomedullary differentiation and cortical thickness. Bladder: Not identified and may be decompressed. IMPRESSION: 1. Mild left hydronephrosis, unchanged. 2. Interval development of mild right hydronephrosis. 3. Stable right-sided nephrolithiasis. 4. The bladder was not identified on this study. Electronically signed by: Rene Munoz M.D. 10/03/2018 8:26 PM ABDOMEN AND PELVIS CT WITHOUT CONTRAST CT DOSE: 744.65 mGy.cm HISTORY: Right flank pain. hx L stone, ? right stone TECHNIQUE: Multiaxial CT images of the abdomen and pelvis were performed without contrast. A dose lowering technique was utilized adhering to the principles of ALARA. COMPARISON STUDY: Abdomen and pelvis CT 10/02/2018. FINDINGS: Bibasilar linear densities consistent with subsegmental atelectasis. Trace left pleural effusion. Stable 4 mm stone within the right kidney. Right perinephric edema has progressed. Left perinephric edema, unchanged. Interval development of mild right hydronephrosis. This extends to the level of the ureterovesical junction. Best seen on image 392 there appears to be a punctate stone within the right ureterovesical junction. No change in mild left hydronephrosis. There are few punctate stones within the distal left ureter/ureterovesical junction. The bladder is completely decompressed. This may account for the bladder wall thickening. Colonic diverticulosis. No evidence for diverticulitis. Suboptimal evaluation for bowel pathology due to the lack of intravenous and oral contrast. However, there is no definite bowel wall thickening or obstruction. Normal appendix. Mild hepatic steatosis. Cholecystectomy. The unenhanced spleen, adrenal glands, and pancreas are unremarkable. No retroperitoneal lymphadenopathy. Small hiatus hernia. Posterior decompression fusion within the lumbar spine. IMPRESSION: 1. There is a punctate stone within the right ureterovesical junction resulting in mild right hydronephrosis. 2. There are few punctate stones within the distal left ureter/ureterovesical junction resulting and mild left hydronephrosis. 3. Right-sided nephrolithiasis. 4. Trace left pleural effusion. 5. Additional findings as described above. Electronically signed by: Rene Munoz M.D. 10/03/2018 9:45 PM Blood Pressure Blood Pressure Findings: Elevated blood pressure Blood Pressure Disposition: further management by hospitalist DAVID Narrative 73-year-old gentleman with a history of GERD, BPH s/p TURP [address] Lizama, hypertension, RLS presenting today with complaint of severe left flank pain and states that he has not urinated since yesterday. Was seen here yesterday in the emergency department and diagnosed with a 4 mm left-sided kidney stone treated with multiple pain medicines. At home has been using Percocet which has been fairly adequately controlling his pain. States he had a bit of lower abdominal pain today a little bit left to right sided. Benign abdomen. States has been drinking well but has not urinated since discharge yesterday. Denies any fever or trauma. No significant vomiting or diarrhea. Has not moved his bowels since yesterday. Ultrasound was completed to look for any signs of retention or worsening hydronephrosis. Repeat kidney function along with laboratory studies to look for any signs of hepatitis or pancreatitis were sent. Did review the CT scan from yesterday. Laboratory studies significant for acute renal failure with a creatinine of almost 5 significantly increased from yesterday without other electrolyte abnormalities. No evidence of hepatitis or pancreatitis. CT scan completed today to look for new bilateral obstruction as there is some hydronephrosis noted on the ultrasound with the post renal appearing renal failure and decompressed bladder. Urology consulted and hospitalist contacted for admission. Urology plans to take for stenting tonight.Discussed with hospitalist who requested imipenem to be ordered and given. Impression & Plan Renal failure, Bilateral kidney stones Discharge Plan Visit Data Chief Complaint: Unable to Void Stated Complaint: KIDNEY PAIN,HASN'T PEED SINCE YESTERDAY ED Provider: Renzo Soto Discharge Problem: Renal failure, Bilateral kidney stones Patient Disposition: Admitted As Inpatient Forms Stand Alone Forms: My [facility] Prescriptions Prescriptions: No Action venlafaxine 75 mg Capsule,Extended Release 24hr 75 mg PO QAM Qty: 0 RF: 0 omeprazole 20 mg Tablet,Delayed Release (Dr/Ec) 20 mg PO QAM Qty: 0 RF: 0 loratadine 10 mg Tablet 10 mg PO DAILY PRN (Reason: Allergy Symptoms) Qty: 0 RF: 0 pramipexole 0.75 mg Tablet 0.75 mg PO HS RF: 0 tamsulosin [Flomax] 0.4 mg capsule 0.4 mg PO DAILY Qty: 10 RF: 0 oxycodone-acetaminophen 5-325 mg tablet 1 tab PO Q6H PRN (Reason: pain) Qty: 14 RF: 0 Durezol 0.05 % drops 1 drops OPR .every three hours RF: 0 Referrals Referrals: Shady Saleh MD [Primary Care Provider] - Discharge Problem: Renal failure Qualifiers: Renal failure chronicity: acute Acute renal failure type: unspecified Qualified Code(s): N17.9 - Acute kidney failure, unspecified The scribe's documentation has been prepared under my direction and personally reviewed by me in its entirety. I confirm that the note above accurately reflects all work, treatment, procedures, and medical decision making performed by me.
[2018-10-03] MEDS ORDERED: IMIPENEM/CILASTATIN SODIUM 500 MG in DEXTROSE 5% 100 ML IV STA (22:14)
--- NOTE | 2018-10-03 22:37 | History & Physical Report ---
Date of Service October 03, 2018 Assessment & Plan (1) Renal failure: 73-year-old male with bilateral kidney stones and hydronephrosis here with creatinine over 4. This is patient's first kidney stone. -Urology stat consult, plan for stenting this evening -Antibiotics imipenem/cilastatin given allergies. -Aggressive fluid hydration -Pain control with Dilaudid 2 mg every 4 hours. -Nausea Zofran as needed FEN/GI: N.p.o. pending operation, NSS at 125 ml/hr DVT ppx: SCDs, will hold off on chemical anticoagulation pending procedure CODE STATUS: Full code as discussed with patient. DISPO: Med telemetry Present on Admission?: Yes (2) Ureterolithiasis: As above (3) Renal colic: Dilaudid 2 mg every 4 hours as needed as above. Present on Admission?: Yes (4) Bilateral kidney stones: Management per urology as above (5) Restless leg: Continue home pramipexole (6) GERD (gastroesophageal reflux disease): Continue home omeprazole (7) Dysthymia: Continue home Effexor History of Present Illness Chief Complaint: Anuria Primary Care Provider: Shady Saleh MD 73-year-old male who presents to the emergency room with his with persistent renal colic and inability to urinate. Found to be in acute renal failure. Was seen in the emergency room yesterday with relatively normal labs and treated for kidney stones bilaterally and sent home. Since then patient states he has not urinated. Has had low p.o. intake. Denies fevers or chills but endorses flank pain bilaterally mostly on the left. States the last time he ate was 3 PM earlier today. ED course: Not hypoxic, not febrile. Slightly elevated blood pressure. CT of the abdomen and pelvis consistent with partial/obstructing left and right-sided stones at UVJ, and resultant hydronephrosis. Creatinine 4 times normal. Urology consulted, plan for stent placed tonight. Past medical history: Seasonal allergies, restless leg. Denies history of MS or stroke or diabetes. Past surgical history: Recent cholecystectomy for gangrenous gallbladder, history of 2 back surgeries, foot surgery, nose surgery, cataract surgery recently. Social history: Lives with , works part-time delivering [employer], drinks wine once a year, no tobacco or illicit drugs. Medications: Aspirin 81 mg daily, loratadine daily, pramipexole 0.75 nightly, omeprazole 20 mg daily, Flomax daily, Effexor XR 75 mg daily. Allergies Allergy/AdvReac Type Severity Reaction Status Date / Time Penicillins Allergy Intermediate RASH AND Verified 10/03/18 19:51 HIVES amoxicillin Allergy Unknown HIVES Verified 10/03/18 19:51 cefuroxime Allergy Unknown RASH Verified 10/03/18 19:51 cyclobenzaprine AdvReac Unknown pt. Verified 10/03/18 19:51 experienced hallucinations,disorganized thoughts Home Medications Home Medications Medication Instructions Recorded Confirmed Type omeprazole 20 mg PO QAM #0 cap 02/02/13 10/03/18 History venlafaxine 75 mg PO QAM #0 cap 02/02/13 10/03/18 History loratadine 10 mg PO DAILY PRN #0 cap 08/14/16 10/03/18 History pramipexole 0.75 mg PO HS 09/22/18 10/03/18 History oxycodone-acetaminophen 1 tab PO Q6H PRN #14 tab 10/02/18 10/03/18 Rx tamsulosin [Flomax] 0.4 mg PO DAILY #10 cap 10/02/18 10/03/18 Rx difluprednate [Durezol] 1 drops OPR .every three hours 10/03/18 10/03/18 History Past Med/Surg History Medical History Acute renal failure Anxiety BPH (benign prostatic hyperplasia) Depression GERD (gastroesophageal reflux disease) HTN (hypertension) Inguinal hernia Osteoarthritis Restless leg syndrome Sleep apnea CPAP Surgical History History of right cataract surgery H/O inguinal hernia repair History of anesthesia reaction SLOW TO WAKE History of cholecystectomy 04/2018 [facility] History of colonoscopy W/ POLYPECTOMY History of lumbar discectomy S/P TURP Status post correction of deviated nasal septum Social History Preferred Language: Thai Appointment Setter Required: No Beliefs That Will Affect Care: None Current Living Situation: Spouse Feels Safe at Home: Yes Safety Concerns: Feels Safe At This Time Smoking Status: Never smoker Hx Alcohol Use: No Hx Substance Use: No Review of Systems All systems reviewed & are unremarkable except as noted in HPI & below Physical Exam Vital Signs (Past 24 Hours): Last Vital Signs Temp 36.7 C 10/03/18 18:23 Pulse 98 H 10/03/18 22:36 Resp 18 10/03/18 22:36 BP 162/77 H 10/03/18 22:36 Pulse Ox 93 10/03/18 22:36 Physical Exam: Examined at the bedside, with patient's and daughter in the room. Vitals noted as above and within normal limits with the exception of elevated blood pressure, likely situational to pain. GENERAL: Awake, alert to person, place, and time, nontoxic-appearing, in mild distress HENT: Normocephalic, atraumatic. . Mucus membranes appear moist. EYES: Normal conjunctiva. Sclera non-icteric. EOMI. NECK: Supple. Full range of motion. No JVD RESPIRATORY: Clear to auscultation. Normal work of breathing. CARDIAC: Regular rate, normal rhythm. Extremities warm and well perfused, 2+ radial pulses bilaterally; 2+ posterior tibialis pulses bilaterally. ABDOMEN: Soft, non-distended. Bowel sounds are normal. Unable to evaluate CVA tenderness given painful exam. LOWER EXTREMITIES: Inspection of calves reveal equal size bilaterally. They are non-tender. No edema. No discoloration. NEURO: No focal gross focal motor deficits noted. Sensation in tact. CN II-XII grossly in tact. SKIN: Rash not present. No jaundice noted. Significant lesions not present. PSYCH: Appropriate mood and affect. Cooperative. Exam as done by Rosita Horner MD, [employer]. Results & Data Laboratory Results 10/03/18 10/03/18 Range/Units 18:53 18:53 WBC 8.17 (4.8-10.8) K/uL RBC 4.69 L (4.7-6.1) M/uL Hgb 14.6 (14.0-18.0) g/dL Hct 41.7 L (42-52) % MCV 88.9 (80-100) fL MCH 31.1 (25-34) pg MCHC 35.0 (32-36) g/dL RDW Std Deviation 42.8 (36.4-46.3) fL RDW Coeff of Cedric 13.2 (11.5-14.5) % Plt Count 150 (130-400) K/uL MPV 9.8 (7.4-10.4) fL Immature Gran % (Auto) 0.2 % Neut % (Auto) 73.6 % Lymph % (Auto) 16.8 % [place] % (Auto) 7.5 % Eos % (Auto) 1.8 % Baso % (Auto) 0.1 % Immature Gran # (Auto) 0.02 (0.00-0.02) K/uL Neut # (Auto) 6.01 (1.4-6.5) K/uL Lymph # (Auto) 1.37 (1.2-3.4) K/uL [place] # (Auto) 0.61 H (0.11-0.59) K/uL Eos # (Auto) 0.15 (0-0.5) K/uL Baso # (Auto) 0.01 (0-0.2) K/uL Sodium 138 (136-145) mmol/L Potassium 3.9 (3.5-5.1) mmol/L Chloride 104 (98-107) mmol/L Carbon Dioxide 25 (21-32) mmol/L Anion Gap 9.0 (3-11) BUN 46 H D (7-18) mg/dl Creatinine 4.94 H* D (0.6-1.4) mg/dl Est Cr Clr Drug Dosing 16.1 ml/min Est GFR ( Amer) 12.6 Est GFR (Non-Af Amer) 10.9 BUN/Creatinine Ratio 9.5 L (10-20) Glucose 137 H (70-99) mg/dl Calcium 8.7 (8.5-10.1) mg/dl Total Bilirubin 0.7 (0.2-1) mg/dl AST 40 H (15-37) U/L ALT 87 H (12-78) U/L Alkaline Phosphatase 79 (45-117) U/L Total Protein 6.4 (6.4-8.2) gm/dl Albumin 3.1 L (3.4-5.0) gm/dl Globulin 3.3 (2.5-4.0) gm/dl Albumin/Globulin Ratio 0.9 (0.9-2) Lipase 78 (73-393) U/L Diagnostic Findings As noted in HPI Medications Administered Dilaudid, fluids. ECG Rhythm: normal sinus Supervising Physician Co-Signing Physician Notes Attending addendum: I have physically seen this patient, have supervised the medical residents activities, and agree with the H&P unless as otherwise noted. Assessment and Plan: Acute kidney injury/right UVJ stone with mild right hydro/left UVJ stone with mild left hydro/increasing right perinephric edema with left unchanged-- Creatinine 4.94 today, with yesterday 1.33. NPO. NSS at 125 mils per hour. Primaxin IV. Noted allergies to penicillin and cephalosporins. Dilaudid IV for severe pain. Zofran IV for nausea. Urology consult, Dr. Brannon coming in tonight for urgent ureteral stent placement. Remainder of orders notations as noted. Resident Activity Tracking Resident Involvement: Resident Care Provided Care Provided: Adult Hospital Medicine (1) Renal failure Acute renal failure type: unspecified Renal failure chronicity: acute Qualified Code(s): N17.9 - Acute kidney failure, unspecified
[2018-10-03] MEDS ORDERED: HYDROmorphone INJ 2 MG/ML SYR/VIAL IV PRN (22:46)
--- NOTE | 2018-10-03 23:19 | Urology Consultation ---
Date of Consultation October 03, 2018 Assessment & Plan (1) Bilateral kidney stones: Assessment Acute renal failure secondary to bilateral ureteral obstruction We will plan on going to the OR today for bilateral stent placement Procedure risks and benefits discussed with patient all questions answered he agrees to proceed History of Present Illness History of Present Illness Patient is a 73-year-old white male with bilateral ureteral calculi and acute renal failure. His creatinine has gone from 1 yesterday to 4.9 today. He does have some flank pain No fevers or chills CT reviewed his Bilateral punctate stones bladder appears empty patient says he has not voided in 24 hours Allergies Allergy/AdvReac Type Severity Reaction Status Date / Time Penicillins Allergy Intermediate RASH AND Verified 10/03/18 19:51 HIVES amoxicillin Allergy Unknown HIVES Verified 10/03/18 19:51 cefuroxime Allergy Unknown RASH Verified 10/03/18 19:51 cyclobenzaprine AdvReac Unknown pt. Verified 10/03/18 19:51 experienced hallucinations,disorganized thoughts Home Medications Home Medications Medication Instructions Recorded Confirmed Type omeprazole 20 mg PO QAM #0 cap 02/02/13 10/03/18 History venlafaxine 75 mg PO QAM #0 cap 02/02/13 10/03/18 History loratadine 10 mg PO DAILY PRN #0 cap 08/14/16 10/03/18 History pramipexole 0.75 mg PO HS 09/22/18 10/03/18 History oxycodone-acetaminophen 1 tab PO Q6H PRN #14 tab 10/02/18 10/03/18 Rx tamsulosin [Flomax] 0.4 mg PO DAILY #10 cap 10/02/18 10/03/18 Rx difluprednate [Durezol] 1 drops OPR .every three hours 10/03/18 10/03/18 History Patient History Social History Preferred Language: Finnish Beliefs That Will Affect Care: None Current Living Situation: Spouse Feels Safe at Home: Yes Smoking Status: Never smoker Hx Alcohol Use: Yes Hx Substance Use: No Review of Systems Review of systems evaluated from his admitting H&P and ER notes Physical Exam Vital Signs (Past 24 Hours): Last Vital Signs Temp 36.7 C 10/03/18 18:23 Pulse 98 H 10/03/18 22:36 Resp 18 10/03/18 22:36 BP 162/77 H 10/03/18 22:36 Pulse Ox 93 10/03/18 22:36 Physical Exam: Well-developed well-nourished white male in no acute distress Neurologically and oriented x3 Lungs clear to auscultation Cardiac shows a regular rate and rhythm without murmur Abdomen is distended tympanitic nontender there are no masses Extremities without calf pain or edema Results & Data Laboratory Results Laboratory Results - last 24 hr 10/03/18 10/03/18 18:53 18:53 WBC 8.17 RBC 4.69 L Hgb 14.6 Hct 41.7 L MCV 88.9 MCH 31.1 MCHC 35.0 RDW Std Deviation 42.8 RDW Coeff of Cedric 13.2 Plt Count 150 MPV 9.8 Immature Gran % (Auto) 0.2 Neut % (Auto) 73.6 Lymph % (Auto) 16.8 Baldwin % (Auto) 7.5 Eos % (Auto) 1.8 Baso % (Auto) 0.1 Immature Gran # (Auto) 0.02 Neut # (Auto) 6.01 Lymph # (Auto) 1.37 Baldwin # (Auto) 0.61 H Eos # (Auto) 0.15 Baso # (Auto) 0.01 Sodium 138 Potassium 3.9 Chloride 104 Carbon Dioxide 25 Anion Gap 9.0 BUN 46 H D Creatinine 4.94 H* D Est Cr Clr Drug Dosing 16.1 Est GFR ( Amer) 12.6 Est GFR (Non-Af Amer) 10.9 BUN/Creatinine Ratio 9.5 L Glucose 137 H Calcium 8.7 Total Bilirubin 0.7 AST 40 H ALT 87 H Alkaline Phosphatase 79 Total Protein 6.4 Albumin 3.1 L Globulin 3.3 Albumin/Globulin Ratio 0.9 Lipase 78 Diagnostic Findings I reviewed his CT scan he has bilateral punctate stones mild Benld both sides bladder is empty
--- NOTE | 2018-10-03 23:41 | Anesthesiology Consultation ---
Date of Service October 03, 2018 Assessment & Plan (1) Encounter for pre-operative examination: Chart Review Chart Review: Acceptable Risk for Surgery and Patient NOT seen in Pre Admission Testing Consults Requested none ASA [id number] Proposed Anesthesia Anesthesia Type: MAC (general as backup) Risk / Benefits Reviewed With: PT / POA / Parent / Guardian, Accepts Plan and Informed Consent Obtained NPO Date Last Intake of Fluids: 10/03/18 Time Last Intake of Fluids: 15:00 Date Last Intake of Solids: 10/03/18 Time Last Intake of Solids: 15:00 History Surgery Operation Date: 10/03/18 23:40 Proposed Procedures p Bilateral Ureteral Stent Insertion - Darien Brannon MD Height/Weight Height: 5 ft 10 in Weight: 101.4 kg Allergies Allergy/AdvReac Type Severity Reaction Status Date / Time Penicillins Allergy Intermediate RASH AND Verified 10/03/18 19:51 HIVES amoxicillin Allergy Unknown HIVES Verified 10/03/18 19:51 cefuroxime Allergy Unknown RASH Verified 10/03/18 19:51 cyclobenzaprine AdvReac Unknown pt. Verified 10/03/18 19:51 experienced hallucinations,disorganized thoughts Medications Home Medications Medication Instructions Recorded Confirmed Last Taken omeprazole 20 mg PO QAM #0 cap 02/02/13 10/03/18 10/03/18 venlafaxine 75 mg PO QAM #0 cap 02/02/13 10/03/18 10/03/18 loratadine 10 mg PO DAILY PRN #0 cap 08/14/16 10/03/18 10/02/18 pramipexole 0.75 mg PO HS 09/22/18 10/03/18 10/01/18 oxycodone-acetaminophen 1 tab PO Q6H PRN #14 tab 10/02/18 10/03/18 10/03/18 15:00 tamsulosin [Flomax] 0.4 mg PO DAILY #10 cap 10/02/18 10/03/18 10/03/18 difluprednate [Durezol] 1 drops OPR .every three hours 10/03/18 10/03/18 10/03/18 Past Medical History Medical History Acute renal failure Anxiety BPH (benign prostatic hyperplasia) Depression GERD (gastroesophageal reflux disease) HTN (hypertension) Inguinal hernia Osteoarthritis Restless leg syndrome Sleep apnea CPAP Past Surgical History Surgical History History of right cataract surgery H/O inguinal hernia repair History of anesthesia reaction SLOW TO WAKE History of cholecystectomy 04/2018 [facility] History of colonoscopy W/ POLYPECTOMY History of lumbar discectomy S/P TURP Status post correction of deviated nasal septum Past Anesthesia History No Hx of Anesthesia Complications and No Family Hx of Anesthesia Complications History of PONV No Motion Sickness Screening History of Motion Sickness: No Social History Smoking Status: Never smoker Hx Alcohol Use: Yes alcohol intake frequency: holidays/special occasions only Hx Substance Use: No substance use type: does not use Exercise / Class Metabolic Activity II 4-5 Yardwork/Stairs/Walk up blair Review of Systems no chest pain or sob Physical Exam Vital Signs Last Vital Signs Temp 37 C 10/03/18 23:22 Pulse 98 H 10/03/18 23:22 Resp 20 10/03/18 23:22 BP 192/91 H 10/03/18 23:22 Pulse Ox 92 10/03/18 23:22 Constitutional + obese ENMT Mouth: + dental caries Thyromental Distance: > or= 3.5 Finger Breadths Mallampati Class: III Neck normal visual inspection Respiratory normal respiratory effort Cardiovascular Rate/Rhythm: regular rate and regular rhythm Musculoskeletal Spine: no pain with cervical ROM Neurologic moves all extremities Psychiatric Orientation: alert and oriented x 3 Testing Electrocardiogram Date: 10/02/18 Findings: + NSR @ (88) L axis deviation Laboratory Results 10/03/18 18:53 10/03/18 18:53
[2018-10-03] MEDS ORDERED: PHENYLEPHRINE 100MCG/ML 5ML SYR IV PRN (23:44)
[2018-10-03] MEDS ORDERED: fentaNYL citrate 100 MCG/2 ML VIAL IV PRN (23:44)
[2018-10-03] MEDS ORDERED: HYDROmorphone INJ 1 MG/ML SYRINGE IV PRN (23:44)
[2018-10-03] MEDS ORDERED: ONDANSETRON INJ 2 MG/ML 2 ML VIAL IV PRN (23:44)
[2018-10-03] MEDS ORDERED: ePHEDrine sulfate 50 MG/ML AMP IV PRN (23:44)
[2018-10-03] MEDS ORDERED: LABETALOL HCL IV 5 MG/ML 20ML IV PRN (23:44)
[2018-10-03] MEDS ORDERED: ATROPINE SULFATE 0.1 MG/ML 10ML SYR IV PRN (23:44)
[2018-10-03] MEDS ORDERED: IOTHALAMATE MEGLUMINE II 17.2% 250 ML VIAL ONE (23:47)
[2018-10-03] MEDS ORDERED: fentaNYL citrate 100 MCG/2 ML VIAL ONE (23:47)
[2018-10-03] MEDS ORDERED: LIDOCAINE HCL 2% 2 ML VIAL/AMP(20MG/ML) INFIL ONE (23:48)
[2018-10-03] MEDS ORDERED: PROPOFOL IV EMULSION 10 MG/ML 20 ML VIAL IV ONE (23:48)
[2018-10-04] MEDS ORDERED: SUCCINYLCHOLINE 100MG/5ML SYR ONE (00:28)
[2018-10-04] MEDS ORDERED: LABETALOL HCL IV 5 MG/ML 20ML IV ONE (01:06)
--- NOTE | 2018-10-04 01:11 | Operative Report ---
Post Operative Report Pre & Post Diagnosis Operation Date: 10/03/18 23:40 Pre-Op Diagnosis: Bilateral ureteral stones with acute renal failure Post-Op Diagnosis: bilateral ureteral stones with acute renal failure Procedure Operation Date: 10/03/18 23:40 Actual Procedures p Cystoscopy,Bilateral Ureteral Stent Insertion(Bilateral) - Darien Brannon MD Surgeon Darien Brannon MD Pole Framer None Estimated Blood Loss 0 Findings Consistent with Post-Op Diagnosis Bilateral ureteral calculi mild bilateral hydronephrosis Specimens None Drains 6 [place]arian multilength left and right ureteral stents and a 16 [place] Kendrick catheter in the bladder Anesthesia Type General Complications none Disposition Accompanied Patient To Recovery: Yes Disposition: Recovery Room Indications Patient is a 73-year-old white male admitted from the ER with bilateral ureteral calculi and acute renal failure. Being brought down for bilateral stent placement Description of Procedure Patient was correctly identified and after the induction of an adequate general anesthetic and appropriate timeout patient was placed in the dorsal lithotomy position. Lower abdomen and genitalia were prepped with Hibiclens and draped in a sterile fashion. Using a 22 [place] cystoscope routine cystoscopic exam was performed next using a 5 [place] open-ended catheter a right retrograde pyelogram was performed and then through the open-ended catheter 0.03 guidewire was passed up the right ureter to position the renal pelvis confirmed by fluoroscopy. A 6 [place] MultiLink stent was then passed over the guidewire under fluoroscopic guidance to position the renal pelvis guidewire was removed there was good curl at the bladder level. Identical procedure was performed on the left side. After placing both stents a 16 [place]arian Kendrick catheter was inserted and hooked to gravity drainage. All needle sponge and instrument counts were correct at the end of the case. Patient tolerated the procedure well and was taken recovery room in stable condition I attest to the content of the Intraoperative Record and any orders documented therein. Any exceptions are noted below.
--- NOTE | 2018-10-04 01:57 | Anesthesiology Progress Note ---
Date of Service October 04, 2018 Anesthesia Post Procedure Vital Signs Vital Signs: Temp Pulse Pulse Resp BP BP Pulse Ox 10/04/18 01:43 36.7 C 88 20 155/85 H 94 10/04/18 01:30 36.5 C 90 20 157/86 H 92 10/04/18 01:20 91 H 20 152/82 H 92 10/04/18 01:13 36.5 C 93 H 16 184/97 H 95 10/04/18 01:10 90 20 164/91 H 95 10/03/18 23:22 37 C 98 H 20 192/91 H 92 10/03/18 22:36 98 H 18 162/77 H 93 10/03/18 21:44 89 20 145/82 H 93 10/03/18 19:56 89 18 180/84 H 93 10/03/18 18:23 36.7 C 106 H 18 155/80 H 95 Pain Intensity Lower Abdomen: Pain Intensity: 1 Notes Mental Status: alert / awake / arousable Patient Amnestic to Procedure: Yes Nausea / Vomiting: adequately controlled Pain: adequately controlled Airway Patency, RR, SpO2: stable & adequate BP & HR: stable & adequate Hydration State: stable & adequate Anesthetic Complications: no major complications apparent and Pt Satisfied with anesthetic care Notes: The patient is awake and comfortable. The patient was initially under MAC for the cystoscopy/stent placement. However, he was not tolerating the procedure and was moving too much for the surgeon so the decision was made to proceed with general anesthesia. He had been appropriately NPO so he was induced with propofol and an LMA #5 was placed. A good seal was difficult to obtain so he was given succinycholine and intubated. Just after ETT was placed and the cuff inflated, the patient bucked and vomited orange particulate matter. The patient's mouth was suctioned and the rest of the case proceeded uneventfully. At the conclusion of the procedure, a fiberoptic bronchoscope was placed down the ETT. No particles or gastric fluid was noted in the trachea or heidi. The patient was extubated without incident and brought to recovery. He has been stable in recovery and his lungs are clear to auscultation. The patient did not likely aspirate, but he was told that it was a possibility. Dr. Hroner from medicine was contacted and also told about the possible aspiration. The patient has a history of sleep apnea with CPAP use. He will have continuous pulse oximetry overnight.
[2018-10-04] MEDS ORDERED: ALUMINUM/MAGNESIUM SUSP 30 ML UDC PO PRN (03:09)
[2018-10-04] MEDS ORDERED: ONDANSETRON INJ 2 MG/ML 2 ML VIAL IV PRN (03:09)
[2018-10-04] MEDS ORDERED: LORATADINE 10 MG TAB PO PRN (03:09)
[2018-10-04] MEDS ORDERED: MAGNESIUM HYDROXIDE SUSP 30 ML UDC PO PRN (03:09)
[2018-10-04] MEDS ORDERED: POLYETHYLENE (MIRALAX) 17 GM PACK PO PRN (03:09)
[2018-10-04] MEDS: SODIUM CHLORIDE 0.9% 1000ML 1,000 ML IV SCH ×3 (03:42→19:22)
[2018-10-04 05:45] LABS: Appearance Urine Clear (Clear); Bacteria Urine Automated Negative (Negative); Bilirubin Urine Negative (Negative); Blood Urine 3+ (Negative); Color Urine Yellow; Epithelial Cell Urine Auto 0-5 /lpf (0-5); Glucose Urine UA Negative (Negative); Ketones Urine Negative (Negative); Leukocyte Esterase Urine Negative (Negative); Nitrite Urine Negative (Negative); Protein Urine Trace (Negative); RBC Urine Automated >30 /hpf (0-4); Specific Gravity Urine 1.014 (1.000-1.030); Urobilinogen Urine Negative (Negative)
--- NOTE | 2018-10-04 06:04 | Fluoroscopy Report ---
FL retrograde includes kub CLINICAL HISTORY: Bilateral stent placement COMPARISON STUDY: CT 10/03/2018 FLUOROSCOPY TIME: 2 minutes NUMBER OF FLUOROSCOPIC IMAGES: 9 FINDINGS: Image intensifier assistance for bilateral ureteral stent placement. IMPRESSION: Bilateral ureteral stent placement. The above report was generated using voice recognition software. It may contain grammatical, syntax or spelling errors. Electronically signed by: Justice Cordero M.D. 10/04/2018 6:03 AM
[2018-10-04 06:05] LABS: Basophils # (auto) 0.01 K/uL (0-0.2); Basophils % (auto) 0.1 %; Eosinophils # (auto) 0.08 K/uL (0-0.5); Hematocrit (blood only) 41.6 % (42-52); Hemoglobin 14.1 g/dL (14.0-18.0); Immature Granulocytes # (auto) 0.02 K/uL (0.00-0.02); Immature Granulocytes % (auto) 0.2 %; Lymphocytes # (auto) 1.54 K/uL (1.2-3.4); Lymphocytes % (auto) 18.4 %; Mean Corpuscular Hgb Conc 33.9 g/dL (32-36); Mean Corpuscular Volume 88.5 fL (80-100); Mean Platelet Volume 9.9 fL (7.4-10.4); Monocytes # (auto) 0.68 K/uL (0.11-0.59); Monocytes % (auto) 8.1 %; Neutrophils # (auto) 6.04 K/uL (1.4-6.5); Neutrophils % (auto) 72.2 %; Platelet Count 133 K/uL (130-400); RDW Coefficient of Variation 13.3 % (11.5-14.5); RDW Standard Deviation 43.1 fL (36.4-46.3); White Blood Count 8.37 K/uL (4.8-10.8)
[2018-10-04 06:43] LABS: BUN Creatinine Ratio 11.1 (10-20); Calcium 8.3 mg/dl (8.5-10.1); Creatinine Clr Calc Pharmacy 22.2 ml/min; Est GFR (African American) 18.4; Est GFR (Non-African American) 15.9; Potassium 4.5 mmol/L (3.5-5.1)
[2018-10-04] MEDS: OFLOXACIN 0.3% OP SOLN 5 ML BTL OPR SCH ×4 (08:02→20:39)
[2018-10-04] MEDS: TAMSULOSIN HCL 0.4 MG CAP PO SCH (08:03)
[2018-10-04] MEDS: PANTOprazole 40 MG TAB PO SCH (08:03)
[2018-10-04] MEDS: VENLAFAXINE HCL XR 75 MG CAPXR PO SCH (08:03)
[2018-10-04] MEDS ORDERED: HYDROmorphone INJ 2 MG/ML SYR/VIAL IV PRN (08:27)
--- NOTE | 2018-10-04 11:42 | Urology Progress Note ---
Date of Service October 04, 2018 Assessment & Plan (1) Ureterolithiasis: Postop day 1 bilateral stent placement Patient improving Kendrick catheter discontinued Continue current medical care Follow-up with Dr. Lizama as an outpatient for further management of stones Subjective Postop day 1 from bilateral stent placement Afebrile vital signs are stable Tolerating stents without problem Urine output is good Urine is clear and the Kendrick Creatinine is coming down Denies any flank pain Physical Exam Vital Signs (Past 24 Hours): Last Vital Signs Temp 37.2 C 10/04/18 10:55 Pulse 99 H 10/04/18 10:55 Resp 26 H 10/04/18 10:55 BP 165/91 H 10/04/18 11:20 Pulse Ox 94 10/04/18 10:55 Physical Exam: Well-developed well-nourished white male no acute distress Neurologically alert and oriented x3 Abdomen benign Extremities without calf pain or edema Results & Data Laboratory Results Laboratory Results - last 24 hr 10/03/18 10/03/18 10/04/18 18:53 18:53 05:25 WBC 8.17 RBC 4.69 L Hgb 14.6 Hct 41.7 L MCV 88.9 MCH 31.1 MCHC 35.0 RDW Std Deviation 42.8 RDW Coeff of Cedric 13.2 Plt Count 150 MPV 9.8 Immature Gran % (Auto) 0.2 Neut % (Auto) 73.6 Lymph % (Auto) 16.8 Creek % (Auto) 7.5 Eos % (Auto) 1.8 Baso % (Auto) 0.1 Immature Gran # (Auto) 0.02 Neut # (Auto) 6.01 Lymph # (Auto) 1.37 [place] # (Auto) 0.61 H Eos # (Auto) 0.15 Baso # (Auto) 0.01 Sodium 138 Potassium 3.9 Chloride 104 Carbon Dioxide 25 Anion Gap 9.0 BUN 46 H D Creatinine 4.94 H* D Est Cr Clr Drug Dosing 16.1 Est GFR ( Amer) 12.6 Est GFR (Non-Af Amer) 10.9 BUN/Creatinine Ratio 9.5 L Glucose 137 H Calcium 8.7 Total Bilirubin 0.7 AST 40 H ALT 87 H Alkaline Phosphatase 79 Total Protein 6.4 Albumin 3.1 L Globulin 3.3 Albumin/Globulin Ratio 0.9 Lipase 78 Urine Color Yellow Urine Appearance Clear Urine pH 5.0 Ur Specific Beauty 1.014 Urine Protein Trace H Urine Glucose (UA) Negative Urine Ketones Negative Urine Blood 3+ H Urine Nitrite Negative Urine Bilirubin Negative Urine Urobilinogen Negative Ur Leukocyte Esterase Negative Urine WBC (Auto) 1-5 Urine RBC (Auto) >30 H U Hyaline Cast (Auto) 1-5 U Epithel Cells (Auto) 0-5 Urine Bacteria (Auto) Negative 10/04/18 10/04/18 05:52 05:52 WBC 8.37 RBC 4.70 Hgb 14.1 Hct 41.6 L MCV 88.5 MCH 30.0 MCHC 33.9 RDW Std Deviation 43.1 RDW Coeff of Cedric 13.3 Plt Count 133 MPV 9.9 Immature Gran % (Auto) 0.2 Neut % (Auto) 72.2 Lymph % (Auto) 18.4 Creek % (Auto) 8.1 Eos % (Auto) 1.0 Baso % (Auto) 0.1 Immature Gran # (Auto) 0.02 Neut # (Auto) 6.04 Lymph # (Auto) 1.54 Creek # (Auto) 0.68 H Eos # (Auto) 0.08 Baso # (Auto) 0.01 Sodium 140 Potassium 4.5 D Chloride 109 H Carbon Dioxide 25 Anion Gap 6.0 BUN 40 H Creatinine 3.60 H D Est Cr Clr Drug Dosing 22.2 Est GFR ( Amer) 18.4 Est GFR (Non-Af Amer) 15.9 BUN/Creatinine Ratio 11.1 Glucose 130 H Calcium 8.3 L Total Bilirubin AST ALT Alkaline Phosphatase Total Protein Albumin Globulin Albumin/Globulin Ratio Lipase Urine Color Urine Appearance Urine pH Ur Specific Beauty Urine Protein Urine Glucose (UA) Urine Ketones Urine Blood Urine Nitrite Urine Bilirubin Urine Urobilinogen Ur Leukocyte Esterase Urine WBC (Auto) Urine RBC (Auto) U Hyaline Cast (Auto) U Epithel Cells (Auto) Urine Bacteria (Auto)
--- NOTE | 2018-10-04 12:05 | Anesthesiology Progress Note ---
Date of Service October 04, 2018 Anesthesia Post Procedure Vital Signs Vital Signs: Temp Pulse Pulse Resp BP BP Pulse Ox 10/04/18 11:20 165/91 H 10/04/18 10:55 37.2 C 99 H 26 H 183/91 H 94 10/04/18 07:30 37.3 C 87 19 159/87 H 98 10/04/18 05:25 37.1 C 85 19 147/82 H 97 10/04/18 04:53 36.9 C 91 H 18 138/83 95 10/04/18 04:25 36.8 C 112 H 16 170/73 H 95 10/04/18 04:05 36.6 C 88 16 145/77 H 95 10/04/18 03:40 36.5 C 88 16 148/83 H 94 10/04/18 03:25 90 18 158/85 H 91 10/04/18 03:09 36.9 C 89 16 151/83 H 95 10/04/18 01:57 36.9 C 93 H 20 151/83 H 93 10/04/18 01:43 36.7 C 88 20 155/85 H 94 10/04/18 01:30 36.5 C 90 20 157/86 H 92 10/04/18 01:20 91 H 20 152/82 H 92 10/04/18 01:13 36.5 C 93 H 16 184/97 H 95 10/04/18 01:10 90 20 164/91 H 95 10/03/18 23:22 37 C 98 H 20 192/91 H 92 10/03/18 22:36 98 H 18 162/77 H 93 10/03/18 21:44 89 20 145/82 H 93 10/03/18 19:56 89 18 180/84 H 93 10/03/18 18:23 36.7 C 106 H 18 155/80 H 95 Pain Intensity Lower Abdomen: Pain Intensity: 0 Notes Mental Status: alert / awake / arousable Patient Amnestic to Procedure: Yes Nausea / Vomiting: adequately controlled Pain: adequately controlled Airway Patency, RR, SpO2: stable & adequate BP & HR: stable & adequate Hydration State: stable & adequate Anesthetic Complications: no major complications apparent and Pt Satisfied with anesthetic care Notes: The patient underwent a cystoscopy/stent placement in the early AM. He was noted to vomit just after intubation. FOB was placed down the ETT and found no traces of the vomit in the lungs. Today the patient is doing well on room air. He us afebrile and feels well. His lungs are clear to auscultation. He has no signs of pneumonia. The patient was counseled that while he did not likely aspirate, there is a possibility that he did which could cause a serious pneumonia. He was told to return to the hospital if he develops any signs of pneumonia in the next several days including cough, fever, or general malaise.
[2018-10-04] MEDS: DUREZOL 0.05% OP SCH ×4 (12:49→23:50)
--- NOTE | 2018-10-04 15:53 | Hospitalist Progress Note ---
Date of Service October 04, 2018 Assessment & Plan (1) Ureterolithiasis: Status post stenting, pain controlled. No notable signs or symptoms of infection. (2) Renal failure: Due to bilateral ureterolithiasis and hydronephrosis. Improved status post stenting, continue IV fluids follow-up basic metabolic panel in the morning. (3) Bilateral kidney stones: As above (4) Restless leg: Continue home meds (5) GERD (gastroesophageal reflux disease): No complaints in this regard (6) Dysthymia: Continue outpatient regimen (7) DVT prophylaxis: Ambulation (8) Discharge planning issues: Stable for transfer to [facility] today, with ongoing improvement in his kidney function, hopefully home as soon as tomorrow or the next day depending on his progress. Subjective Feeling better, voided a little bit. No fevers chills or sweats. No notable urinary symptoms. his pain is under good control. Review of Systems All systems reviewed & are unremarkable except as noted in HPI & below Physical Exam Vital Signs (Past 24 Hours): Last Vital Signs Temp 37.4 C 10/04/18 15:11 Pulse 90 10/04/18 15:11 Resp 18 10/04/18 15:11 BP 158/86 H 10/04/18 15:11 Pulse Ox 95 10/04/18 15:11 Physical Exam: General he is awake alert oriented x3 pleasant no acute distress. HEENT normocephalic atraumatic mucous membranes are moist. Breathing is unlabored no accessory muscle use. Skin shows no rashes no pallor or icterus. Neuro shows cranial nerves II through XII are grossly intact gross motor and sensory intact Results & Data Laboratory Results Noted, creatinine improving (1) Renal failure Acute renal failure type: unspecified Renal failure chronicity: acute Qualified Code(s): N17.9 - Acute kidney failure, unspecified
[2018-10-04] MEDS ORDERED: ACETAMINOPHEN 500 MG TAB PO PRN (16:16)
[2018-10-04] MEDS ORDERED: OXYCODONE HCL IR 5 MG TAB (IMMEDIATE RELEASE) PO PRN (16:16)
[2018-10-04] MEDS ORDERED: COUGH DROP (SUGAR FREE) LOZ 24 LOZ/1 BOX BUCCAL PRN (20:30)
[2018-10-04] MEDS ORDERED: COUGH DROP (SUGAR FREE) LOZ 24 LOZ/1 BOX BUCCAL ONE (20:38)
[2018-10-04] MEDS ORDERED: PRAMIPEXOLE DIHYDROCHLO 0.25 MG TAB PO SCH (21:00)
[2018-10-05] MEDS: SODIUM CHLORIDE 0.9% 1000ML 1,000 ML IV SCH ×2 (03:04→10:41)
[2018-10-05] MEDS: DUREZOL 0.05% OP SCH ×3 (03:05→12:13)
[2018-10-05 05:51] LABS: Calcium 8.1 mg/dl (8.5-10.1); Creatinine Clr Calc Pharmacy 70.6 ml/min; Est GFR (African American) 74.8; Est GFR (Non-African American) 64.6; Potassium 3.8 mmol/L (3.5-5.1)
[2018-10-05] MEDS: VENLAFAXINE HCL XR 75 MG CAPXR PO SCH (08:27)
[2018-10-05] MEDS: TAMSULOSIN HCL 0.4 MG CAP PO SCH (08:27)
[2018-10-05] MEDS: OFLOXACIN 0.3% OP SOLN 5 ML BTL OPR SCH ×2 (08:27→12:14)
[2018-10-05] MEDS: PANTOprazole 40 MG TAB PO SCH (08:28)
--- NOTE | 2018-10-05 16:46 | Discharge Summary ---
Date of Service October 05, 2018 Admission HPI Per Admitting Provider 73-year-old male who presents to the emergency room with his with persistent renal colic and inability to urinate. Found to be in acute renal failure. Was seen in the emergency room yesterday with relatively normal labs and treated for kidney stones bilaterally and sent home. Since then patient states he has not urinated. Has had low p.o. intake. Denies fevers or chills but endorses flank pain bilaterally mostly on the left. States the last time he ate was 3 PM earlier today. ED course: Not hypoxic, not febrile. Slightly elevated blood pressure. CT of the abdomen and pelvis consistent with partial/obstructing left and right-sided stones at UVJ, and resultant hydronephrosis. Creatinine 4 times normal. Urology consulted, plan for stent placed tonight. Past medical history: Seasonal allergies, restless leg. Denies history of [place] or stroke or diabetes. Past surgical history: Recent cholecystectomy for gangrenous gallbladder, history of 2 back surgeries, foot surgery, nose surgery, cataract surgery recently. Social history: Lives with , works part-time delivering [employer], drinks wine once a year, no tobacco or illicit drugs. Medications: Aspirin 81 mg daily, loratadine daily, pramipexole 0.75 nightly, omeprazole 20 mg daily, Flomax daily, Effexor XR 75 mg daily. Principal Diagnosis no Discharge Data Allergies Allergy/AdvReac Type Severity Reaction Status Date / Time Penicillins Allergy Intermediate RASH AND Verified 10/03/18 19:51 HIVES amoxicillin Allergy Unknown HIVES Verified 10/03/18 19:51 cefuroxime Allergy Unknown RASH Verified 10/03/18 19:51 cyclobenzaprine AdvReac Unknown pt. Verified 10/03/18 19:51 experienced hallucinations,disorganized thoughts Consultations 10/03/18 21:54 Consult Urology Stat 10/03/18 21:57 ED Decision to Admit Stat Procedures Performed Operation Date: 10/03/18 23:40 Actual Procedures p Cystoscopy,Bilateral Ureteral Stent Insertion(Bilateral) - Darien Brannon MD Ordered Studies 10/03/18 18:39 US renal/blad retro comp Stat 10/03/18 20:29 CT abd pelvis wo con Stat 10/03/18 23:39 FL retrograde includes kub Routine Hospital Course (1) Renal failure: (2) Ureterolithiasis: (3) Renal colic: (4) Bilateral kidney stones: (5) Restless leg: (6) GERD (gastroesophageal reflux disease): 73-year-old male was admitted to hospital on October 03, 2018 because of Kidney stone and acute kidney failure Ureterolithiasis: Status post stenting, pain controlled. No notable signs or symptoms of infection. acute Renal failure Due to bilateral ureterolithiasis and hydronephrosis. Improved status post stenting, Has been on IV fluids, Creatinine level has been improved to 1.13 from 3.6 Restless leg, Saul, dysthymia, Stable continue current medication Objective at discharge Doing good, no fever or chills, urination good, denies dysuria urgency and frequency, Minimal bilateral flank pain Review of Systems All systems reviewed & are unremarkable except as noted in HPI & below Physical ExamAt discharge General he is awake alert oriented x3 pleasant no acute distress. HEENT normocephalic atraumatic mucous membranes are moist. lungs: Breathing is unlabored no accessory muscle use. Heart regular rhythm S1-S2 has no murmur Skin: no rashes no pallor or icterus. Neuro shows cranial nerves II through XII are grossly intact gross motor and sensory intact Discharge instructions you have Ureterolithiasis, Postop day 2 bilateral stent placement Follow-up with urology as instructed Follow-up with Dr. Lizama as an outpatient for further management of stones as instructed You have accelerated blood pressure, will need to follow-up with primary care physicians, He was having acute kidney failure which is resolving, you need to follow-up with primary care physician and to follow-up kidney function (7) Dysthymia: Total Time Total Time Spent Total Time Spent (In Minutes): 35 Total Time Includes: Examination of the Patient, Discharge Planning, Medication Reconciliation and Communication With Other Providers Discharge Plan Discharge Items Patient Disposition: Home - Self-Care Reason For Visit: HEIDI, OBSTRUCTING URETERAL STONE Discharge Diagnosis: Ureterolithiasis: Postop day2 bilateral stent placement Accelerated hypertension Condition: Fair Discharge Goals: Decrease discomfort, Diagnostic testing, Improve disease control, Improve function, Improve nutritional status, Learn about illness, Prevent disease and Therapeutic intervention Activity: As commented below Non-emergency contact: Primary Care Provider and Urologist Call non-emergency contact if: you have any medication questions Follow-up/Referrals: Shady Saleh MD [Primary Care Provider] - Diet: Heart Healthy Addtl Provider Instructions: you have Ureterolithiasis, Postop day 2 bilateral stent placement Follow-up with urology as instructed Follow-up with Dr. Lizama as an outpatient for further management of stones as instructed You have accelerated blood pressure, will need to follow-up with primary care physicians, He was having acute kidney failure which is resolving, you need to follow-up with primary care physician and to follow-up kidney function you need to follow up with your primary care physician in 1 week, - take medication as instructed, never overdose or any misuse, or take with alcohol, because misuse of medicine may cause organ damage or , call me, or your primary care physician if have questions of discharge medicaitons. - call your primary care physician, or go to local emergency room if has any fever/chill, chest pain, shortness of breathing, nausea/vomiting/abdominal pain, facial droop/slurry speech/local weakness, or if has any questions. - fall precaution - diet as instructed - you need to follow up with your subspecialist, such as Dr. Lizama Prescriptions: Continued venlafaxine 75 mg Capsule,Extended Release 24hr 75 mg PO QAM Qty: 0 RF: 0 omeprazole 20 mg Tablet,Delayed Release (Dr/Ec) 20 mg PO QAM Qty: 0 RF: 0 loratadine 10 mg Tablet 10 mg PO DAILY PRN (Reason: Allergy Symptoms) Qty: 0 RF: 0 pramipexole 0.75 mg Tablet 0.75 mg PO HS RF: 0 tamsulosin [Flomax] 0.4 mg capsule 0.4 mg PO DAILY Qty: 10 RF: 0 oxycodone-acetaminophen 5-325 mg tablet 1 tab PO Q6H PRN (Reason: pain) Qty: 14 RF: 0 Durezol 0.05 % drops 1 drops OPR .every three hours RF: 0 Stand-Alone Forms: [facility], Opioid Pain Management Discharge Orders: Discharge Order (Routine); Ordered 10/05/18 Ordered By: Thomas Cronin Admission Data Admit Date/Time: 10/03/18 22:46 Attending Provider: Thomas Cronin Admit Provider: Rosita Horner Primary Care Provider: Shady Saleh Other Providers: Darien Brannon ; Jacob Mckeon ; Miko Richard Service: Telemetry Medical Other Interventions: Discharge Summary Assessment (RN) Last Done: 10/05/18 10:31 DC Date/Time DO NOT enter until pt leaves facility: 10/05/18 12:46
== END 2018-10-05 12:46 | disposition home or self-care (01) | DRG 661 ==
LOC: ED 18:20 → 2E 22:46 → SUATTDRO 22:46 → 2E 23:44 → 3E 10-04 16:00

== ENCOUNTER 2024-10-29 06:05 | Inpatient (IN) ==
--- NOTE | 2024-10-01 10:29 | PAT Medication Instructions ---
Medication Instructions Date of Service October 01, 2024 Home Medications Medication Instructions Recorded lisinopril 10 mg tablet 10 mg PO HS #90 tabs 04/13/24 albuterol sulfate 90 mcg/actuation 2 puff inhalation QID PRN 04/16/24 aerosol inhaler shortness of breath or wheezing #6.7 grams venlafaxine 75 mg capsule,extended 75 mg PO QAM #90 caps 08/17/24 release 24 hr omeprazole 20 mg tablet,delayed release 20 mg PO QAM loratadine-pseudoephedrine ER 10 mg-240 mg tablet,extended [id number] 1 tab PO UD PRN ALLERGY RELIEF lisinopril 10 mg tablet 10 mg PO HS albuterol sulfate 90 mcg/actuation aerosol inhaler 2 puff inhalation QID PRN shortness of breath or wheezing aspirin 81 mg tablet,delayed release 81 mg PO QAM venlafaxine 75 mg capsule,extended release 24 hr 75 mg PO QAM pramipexole 1 mg tablet 1 - 2 mg PO UD tramadol 50 mg tablet 50 - 100 mg PO UD PRN pain Continue as directed pramipexole 1 mg tablet 1 - 2 mg PO UD ASK your prescriber and surgeon aspirin 81 mg tablet,delayed release 81 mg PO QAM DO NOT take the morning of surgery loratadine-pseudoephedrine ER 10 mg-240 mg tablet,extended [id number] 1 tab PO UD PRN ALLERGY RELIEF Take morning of surgery With a small sip of water, OTHERWISE NOTHING TO EAT OR DRINK AFTER MIDNIGHT: omeprazole 20 mg tablet,delayed release 20 mg PO QAM albuterol sulfate 90 mcg/actuation aerosol inhaler 2 puff inhalation QID PRN shortness of breath or wheezing (use if needed; please bring rescue inhaler with you to hospital day of surgery if possible) venlafaxine 75 mg capsule,extended release 24 hr 75 mg PO QAM tramadol 50 mg tablet 50 - 100 mg PO UD PRN pain (if needed) Take evening before surgery loratadine-pseudoephedrine ER 10 mg-240 mg tablet,extended [id number] 1 tab PO UD PRN ALLERGY RELIEF (if needed) lisinopril 10 mg tablet 10 mg PO HS albuterol sulfate 90 mcg/actuation aerosol inhaler 2 puff inhalation QID PRN shortness of breath or wheezing (if needed) tramadol 50 mg tablet 50 - 100 mg PO UD PRN pain (if needed) Other Notes If you have any questions please call us at [phone] or [phone] or [phone] or [phone]
--- NOTE | 2024-10-05 11:54 | Anesthesiology Consultation ---
Date of Service October 05, 2024 Assessment & Plan (1) Encounter for pre-operative examination: - check BSG am DOS. - surgeon ordered [place] pulmonology clearance 10/11/24. - PCP pre-operative evaluation 10/01/24 [place]: "...estimated risk probability for perioperative BI 0.20%-vital signs reviewed and were stable today-patient was instructed to follow up with pre anesthesia testing recommendations for medications prior to surgery-Patient instructed to keep his follow-up preop visit as scheduled with orthopedics, anesthesia, Dr. Pena and schedule with administrative specialist for clearance-from a general medical standpoint, patient cleared for surgery..." Chart Review Chart Review: Pending: Refer to Additional Notes / Consult section and Patient seen in Pre Admission Testing Teaching & Discussion Pre-Anesthesia Teaching/Discussion Notes: Instructed NPO after midnight before surgery, except medications with 15 cc of water. Medication instructions provided according to the PAT guidelines. History Surgery Operation Date: 10/15/24 07:30 Proposed Procedures p Oblique Lumbar Interbody Fusion L5-S1, Lateral Interbody Fusion L2-L3, L1-L2, Anterior Plate L5-S1, with Spinal Cord Monitoring - Jv Bella MD - per surgeon note 10/05/24: "...discussed the procedure in detail, day 1 on Friday will be anterior interbody spacer placement at L1-L2 3 and L5-S1 as well as plating at L5-S1. Allow him to rest over the weekend on Friday will proceed with hardware removal from L3-L5, posterior lateral fusion from T10-S1 with instrumentation of the pelvis..." Height/Weight Height: 5 ft 9.5 in Weight: 89.3 kg Allergies Allergy/AdvReac Type Severity Reaction Status Date / Time amoxicillin Allergy Unknown HIVES Verified 10/01/24 09:55 cefuroxime Allergy Unknown RASH Verified 10/01/24 09:55 Cephalosporins Allergy Unknown rash Verified 10/01/24 09:55 Penicillins Allergy Unknown RASH AND Verified 10/01/24 09:55 HIVES pollen extracts Allergy Unknown CONGESTION Verified 10/01/24 09:55 Sulfa (Sulfonamide Allergy Unknown Rash Verified 10/01/24 09:55 Antibiotics) cyclobenzaprine AdvReac Unknown pt. Verified 10/01/24 09:55 experienced hallucinations,disorganized thoughts Medications Home Medications Medication Instructions Recorded Confirmed Last Taken omeprazole 20 mg tablet,delayed 20 mg PO QAM #0 caps 02/02/13 10/01/24 06/11/22 release loratadine-pseudoephedrine ER 10 1 tab PO UD PRN ALLERGY RELIEF #90 08/18/20 10/01/24 Unknown mg-240 mg tablet,extended tabs [id number] lisinopril 10 mg tablet 10 mg PO HS #90 tabs 04/13/24 10/01/24 Unknown albuterol sulfate 90 mcg/actuation 2 puff inhalation QID PRN 04/16/24 10/01/24 Unknown aerosol inhaler shortness of breath or wheezing #6.7 grams aspirin 81 mg tablet,delayed 81 mg PO QAM 08/08/24 10/01/24 Unknown release venlafaxine 75 mg capsule,extended 75 mg PO QAM #90 caps 08/17/24 10/01/24 Unknown release 24 hr pramipexole 1 mg tablet 1 - 2 mg PO UD 10/01/24 10/01/24 Unknown tramadol 50 mg tablet 50 - 100 mg PO UD PRN pain 10/01/24 10/01/24 Unknown Past Medical History Medical History (Updated 10/05/24 @ 12:54 by Mariaan Garcia PA-C) Anxiety and depression BPH (benign prostatic hyperplasia) resolved Diabetes GERD (gastroesophageal reflux disease) controlled, stable per pt History of COVID-19 (~2021) x 2 multiple-denies hospitalization-symptoms resolved History of kidney stones remote History of memory loss denies any current issues with memory-states was 2 yrs ago and resolved-u nknown cause HTN (hypertension) controlled, stable per pt Hx of colonic polyps Hx of migraines Hx of renal failure "in the past because of my kidney stones" Obesity Restless leg syndrome Sleep apnea BIPAP-compliant Spondylolisthesis of lumbar region Patient denies h/o stroke, seizures, heart attack, heart failure, blood clots/DVTs or blood transfusions. Exercise / Class Metabolic Activity II 4-5 Yardwork/Stairs/Walk up hill (denies chest discomfort or shortness of breath with one flight stairs) Past Family History Family History Brother Colorectal cancer Father Bladder cancer Myocardial infarction Daughter Bipolar disorder Other No family history of adverse response to anesthesia No pertinent family history Denies family history of Ovarian cancer Prostate cancer Breast cancer Past Surgical History Surgical History (Updated 10/05/24 @ 11:52 by Mariana Garcia PA-C) Fusion of spine lumbar fusion x2, most recent 2012 H/O umbilical hernia repair History of anesthesia reaction slow to wake History of cataract surgery rt/lt History of cholecystectomy 04/2018 [facility] History of colonoscopy w/ polypectomy History of cystoscopy for kidney stones, stents required, "a couple of these have been done" History of tonsillectomy and adenoidectomy History of tooth extraction S/P repair of hydrocele w/spermatocelectomy S/P trigger finger release left hand S/P TURP Status post correction of deviated nasal septum Past Anesthesia History No Family Hx of Anesthesia Complications History of PONV No Hx of PONV and Hx of Motion Sickness Social History Smoking Status: Former smoker tobacco type: cigarettes Do You Dip or Chew Tobacco: No Smoking End Date: 1989 Hx Alcohol Use: Yes alcohol intake frequency: other Alcohol Intake Frequency Comment: 1x/month Hx Substance Use: No substance use type: does not use Review of Systems Patient denies chest pain, shortness of breath, dyspnea on exertion, fever, chills, cough, wheezing, or palpitations. Physical Exam Vital Signs Vitals BP 134/76 P 80 TEMP 98.3 SP02 96% on RA RESP 19 Physical Patient resting comfortably in chair in no acute distress, alert and oriented, responding appropriately throughout visit Full cervical extension range of motion without pain TMD 3.5 finger breadths Mallampati Score 2 Dentition: upper partial and several crowns, denies chipped or loose teeth, caps, implants or bridges Lungs: normal respiratory effort. Good air movement, clear throughout to auscultation, no adventitious breath sounds Cardiac: regular rate and rhythm, no murmurs noted Carotid arteries: negative bruit bilat Lab Results Anesthesia Preop Results Results Anesthesia Widget: WBC 6.59 K/ul (4.8-10.8) 10/05/24 Hgb 14.8 g/dl (14.0-18.0) 10/05/24 Hct 43.5 % (42.0-52.0) 10/05/24 Plt 217 K/uL (130-400) 10/05/24 Na 139 mmol/L (136-145) 10/05/24 K 4.3 mmol/L (3.5-5.1) 10/05/24 Cl 105 mmol/L (98-107) 10/05/24 CO2 32 mmol/L (21-32) 10/05/24 BUN 26 mg/dl (6-23) H 10/05/24 Creat 0.86 mg/dl (0.6-1.4) 10/05/24 Glucose Level 106 mg/dl (70-99(Fasting)) H 10/05/24 PT 10.4 Seconds (9.0-12.0) 10/05/24 PTT 28 Seconds (21-31) 10/05/24 INR 1.0 (0.9-1.1) 10/05/24 TSH 0.884 uIu/ml (0.300-4.500) 08/24/24 HA1c 6.7 % (4.5-5.6) H 10/05/24 Urine Color Yellow 08/08/24 Urine Appearance Clear (Clear) 08/08/24 Urine pH 6.5 (4.5-7.5) 08/08/24 Urine Specific [place] 1.016 (1.000-1.030) 08/08/24 Urine Protein Negative (Negative) 08/08/24 Urine Glucose (UA) Negative (Negative) 08/08/24 Urine Ketones Negative (Negative) 08/08/24 Urine Blood Negative (Negative) 08/08/24 Urine Nitrite Negative (Negative) 08/08/24 Urine Bilirubin Negative (Negative) 08/08/24 Urine Urobilinogen Negative (Negative) 08/08/24 Urine Leukocyte Esterase Negative (Negative) 08/08/24 Blood Type O Positive 10/05/24 Antibody Screen NEGATIVE 10/05/24 Testing Electrocardiogram Date: 10/05/24 NSR, rate 66 bpm Left axis deviation Chest X-Ray Date: 10/05/24 No acute cardiopulmonary pathology seen. Stress Test Date: 05/18/24 METS 4.6 MPHR 88% No evidence of inducible ischemia at the workload achieved Hypotensive response to exercise Poor exercise tolerance EF 60-65% Moderate cLVH Borderline dilated RV No significant valvular pathology Pulmonary Function Test Date: 05/10/24 Normal spirometry and lung volumes with diffusion capacity not adjusted for hemoglobin lower limits of normal.
[~2024-10-29 06:05] MED LIST changes: -ASPCH81X PO; -ATV/1 PO; -EFFSR75 PO; -LORA10CA2 PO; -OMEP20CA59 PO; +ceFAZolin 2000MG 2,000 MG/15 ML SYR IV SCH
[2024-10-29] MEDS: VANCOMYCIN HCL 1,250 MG in SODIUM CHLORIDE 0.9% 250 ML IV SCH ×2 (06:13→23:12)
[2024-10-29] MEDS: LR 60ML/HR IV SCH (06:13)
[2024-10-29] MEDS: LR 15ML/HR IV SCH (06:13)
[2024-10-29] MEDS: ACETAMINOPHEN 500 MG TAB PO SCH (06:14)
[2024-10-29] MEDS ORDERED: REMIFENTANIL HCL 1 MG VIAL IV ONE (06:45)
[2024-10-29] MEDS ORDERED: PROPOFOL IV EMULSION 10 MG/ML 100 ML VIAL IV ONE ×2 (06:46)
[2024-10-29] MEDS ORDERED: ROCURONIUM BROMIDE 10 MG/ML 5 ML VIAL IV ONE ×2 (07:01→08:51)
[2024-10-29] MEDS ORDERED: DEXAMETHASONE SOD INJ 4 MG/ML VIAL ONE (07:01)
[2024-10-29] MEDS ORDERED: PROPOFOL IV EMULSION 10 MG/ML 20 ML VIAL IV ONE ×2 (07:01→10:08)
[2024-10-29] MEDS ORDERED: GLYCOPYRROLATE 0.2 MG/ML VIAL ONE (07:01)
[2024-10-29] MEDS ORDERED: ONDANSETRON INJ 2 MG/ML 2 ML VIAL ONE (07:01)
[2024-10-29] MEDS ORDERED: LIDOCAINE 2% 2 ML VIAL/AMP(20MG/ML) INFIL ONE (07:01)
[2024-10-29] MEDS ORDERED: fentaNYL citrate PF 100 MCG/2 ML VIAL ONE ×2 (07:02→10:26)
[2024-10-29] MEDS ORDERED: MIDAZOLAM HCL 1 MG/ML 2ML VIAL ONE ×2 (07:02→08:08)
[2024-10-29] MEDS ORDERED: PROMETHAZINE HCL 6.25 MG in SODIUM CHLORIDE 0.9% 50 ML IV PRN (07:07)
[2024-10-29] MEDS ORDERED: ATROPINE SULFATE 0.1 MG/ML 10ML SYR IV PRN (07:07)
[2024-10-29] MEDS ORDERED: ePHEDrine sulfate 50 MG/ML AMP IV PRN (07:07)
[2024-10-29] MEDS ORDERED: ONDANSETRON INJ 2 MG/ML 2 ML VIAL IV PRN (07:07)
--- NOTE | 2024-10-29 07:10 | History & Physical Bridge Note ---
Date of Service October 29, 2024 History & Physical Bridge Note I have examined the patient, reviewed the History & Physical and in the interval since the performance of the History & Physical I have noted the following changes of clinical significance: no changes noted
--- NOTE | 2024-10-29 07:16 | History & Physical Bridge Note ---
Date of Service October 29, 2024 History & Physical Bridge Note I have examined the patient, reviewed the History & Physical and in the interval since the performance of the History & Physical I have noted the following changes of clinical significance: no changes noted Plan for staged Anterior lumbar fusion L1-2, L2-3, L5-S1 Day one and posterior instrumented fusion [id number] day 2. Dr. Pena to assist with approach Day 1
[2024-10-29] MEDS ORDERED: SUCCINYLCHOLINE CHLORIDE 20 MG/ML 10 ML VIAL IV ONE (07:28)
[2024-10-29] MEDS ORDERED: VASOPRESSIN 20 UNIT/ML VIAL ONE (08:25)
[2024-10-29] MEDS ORDERED: PHENYLEPHRINE 100MCG/ML 5ML SYR ONE (09:12)
[2024-10-29] MEDS ORDERED: HYDROmorphone INJ 2 MG/ML SYR/VIAL ONE (12:55)
[2024-10-29] MEDS ORDERED: SUGAMMADEX SODIUM 200 MG/2 ML VIAL IV ONE (12:57)
[2024-10-29] MEDS: BUPIVACAINE/EPINEPHRINE 0.5% MPF 1:200,000 30 ML VIAL ONE (13:01)
[2024-10-29] MEDS: VANCOMYCIN HCL 1000MG/20ML VIAL ONE (13:09)
[2024-10-29] MEDS: BUPIVACAINE 0.5 % 5 MG/1 ML MPF 30ML VIAL ONE (13:09)
--- NOTE | 2024-10-29 13:39 | Post Operative Brief Note ---
PG Immediate Post Op with CF Date of Surgery October 29, 2024 Pre & Post Diagnosis Lumbar Spondylosis Lumbar Foraminal Stenosis Lumbar Radiculopathy S/P Lumbar Fusion with Adjacent Segment Degeneration I identified the patient and participated in the time-out.: Yes Procedure Anterior Lumbar Interbody Fusion L5-S1 Insertion of Interbody Device for Fusion L5-S1 Anterior Lumbar Interbody Fusion L2-3 via direct lateral approach Insertion of Interbody Device for Fusion L2-3 Allograft for Spinal Fusion Surgeon Jv Belal MD - Ortho Spine Chevy Pena DO - General [employer] Lot Attendant Miko Finley, Wojciech Hill MD Estimated Blood Loss 250 Findings Consistent with Post-Op Diagnosis Specimens Specimen Description: None per surgeon. Drains Kendrick Catheter (16Fr. Kendrick catheter inserted by Maureen Agee RN without difficulty. Draining clear yellow urine. Anesthesia to monitor urine output. ) Anesthesia Type General Complications none Disposition Disposition: Recovery Room
--- NOTE | 2024-10-29 13:52 | Operative Report ---
PG Post Operative Report Pre & Post Diagnosis Lumbar Spondylosis Lumbosacral Foraminal Stenosis Lumbar Radiculopathy S/P Lumbar Fusion with Adjacent Segment Degeneration I identified the patient and participated in the time-out.: Yes Procedure PROCEDURES PERFORMED: 1. L5-S1 anterior lumbar discectomy and fusion (12109). 2. L5-S1 interbody spacer placement with arthrodesis (35953). 3. L2-3 anterior lumbar discectomy and fusion via direct Lateral Approach (83005). 4. L2-3 interbody spacer placement with arthrodesis (82732). 5. Allograft for spine surgery, local Implants: Hortencia Mohan Surgeon Jv Bella MD - ortho spine Co-Surgeon: Chevy Pena DO - general laser cutter Miko Finley, Wojciech Hill MD Estimated Blood Loss 250 Findings Consistent with Post-Op Diagnosis Specimens None Drains None Anesthesia Type General Complications none Disposition Disposition: Recovery Room Indications The patient continues to have severe symptoms that have been unresponsive to extensive conservative management. After discussing the benefits and risks of continued conservative management versus operative intervention, the patient elected to proceed with surgery. Description of Procedure Informed consent was obtained. Patient was taken to the operating room and anesthesia was initiated. Antibiotics were administered. A timeout was performed. Dr. Pena performed the anterior exposure. Please see the separate operative report for details. The appropriate levels were confirmed using an x-ray. A total diskectomy was completed at L5-S1 using a combination of curettes, rongeurs and pituitaries. The endplates were prepared. An interbody spacer was selected and implanted after being packed with allograft bone. Screws were placed through the interbody device into the bodies of L5 and S1 for integrated fixation. Closure of the wound was performed by Dr. Pena. They patient was placed in a lateral position. All bony prominences were carefully padded and patient was draped a second time. A second timeout was performed. Under the guidance of fluoroscopy, a lateral approach was utilized performed by Dr. Pena to reach the lateral spine at L2-3. A dilator was placed under fluoroscopy at the junction of the posterior and middle third of the disk space. The dilator was carefully dissected through the psoas to dock on the disc space. Neuromonitoring revealed that there were no nerves adjacent to the dilator. A guidewire was placed into the disk space. Progressively larger dilators were inserted. Neuromonitoring was utilized with each dilator to ensure that no nerves were adjacent to the approach. An appropriately sized retractor was placed over the dilators. It was secured to the bed using a clamp. Neuromonitoring revealed no nerves adjacent to the retractor. It was gently opened a small amount. A ball tip probe attached to neuromonitoring was used to further confirm that there were no nerves in the visualized field or directly behind the retractor. Having cleared the field of nerves, an annulotomy was completed using a knife. A diskectomy was completed using curettes, rongeurs and pituitaries. The endplates were prepared. An appropriately sized interbody spacer was selected and implanted after being packed with BMP and bone [employer] allograft material. The retractor was carefully removed and meticulous hemostasis was achieved. The fascia was closed using absorbable suture. The subcutaneous was closed using absorbable suture. Tissue sealant was used to close the skin. A sterile dressing was placed. Post Op Plan: Patient will remain in house, second stage will be performed on Friday [id number] fusion and decompression. I attest to the content of the Intraoperative Record and any orders documented therein. Any exceptions are noted below.
[2024-10-29] MEDS: fentaNYL citrate PF 100 MCG/2 ML VIAL IV PRN (14:05)
--- NOTE | 2024-10-29 14:06 | Operative Report ---
PG Post Operative Report Pre & Post Diagnosis Operation Date: 11/01/24 07:30 Lumbar Spondylosis Lumbosacral Radiculopathy Lumbosacral Foraminal stenosis S/p Lumbar fusion with adjacent segment degeneratioin I identified the patient and participated in the time-out.: Yes Procedure Operation Date: 11/01/24 07:30 1. L5-S1 anterior lumbar discectomy and fusion ( [id number]) 2.L5-S1 interbody spacer placement with arthrodesis([id number]) 3. L2-3 anterior lumbar discectomy and fustion via direct lateral approach ( [id number]) 4. L2-3 interbody spacer placement with arthrodesis () 5. Allograft for Spine surgery,local Surgeon Dr. Jena MD co-surgeon: Chevy Pena DO Health Information Manager Wojciech Alexander MD Estimated Blood Loss 250 Findings Consistent with Post-Op Diagnosis Specimens none Anesthesia Type General Complications none Disposition Disposition: Recovery Room Description of Procedure After informed consent was obtained the patient was taken to the operating room and placed in supine position. After successful intubation a Kendrick catheter was placed sterilely. The abdomen was shaved and sterilely prepped and draped in usual fashion. We began with a Pfannenstiel incision. This was carried down through the soft tissue using cautery. The anterior fascia was opened using cautery and flaps were made in both directions. The midline was opened up using primarily blunt dissection. We then divided the transversus abdominis fascia. Working medial to lateral we were able to manually work our way around the retroperitoneum until we were able to locate the psoas muscle as well as the iliac vessels. Blunt dissection was used to gently retract the vessels later ally exposing the L5-S1 disc space. Middle sacral vessels were controlled using bipolar. We then placed the camber self-retaining retractor and the disc space was exposed. We did verify we were in the correct disc space with fluoroscopy. I continued to hold exposure throughout Dr. Bella's portion of the case. Please see his dictation. Once he completed his interbody disc fusion we then irrigated the wound. There was adequate hemostasis when we removed the retractors. The anterior fascia was closed using #1 PDS in running fashion. Soft tissue was irrigated. Subcutaneous tissue was closed using 3-0 Vicryl in interrupted fashion and skin was closed using 3-0 Monocryl in running fashion. Marcaine with epinephrine was injected around the incision for postoperative analgesia. Benzoin Steri-Strips and an OpSite dressing were placed. At this point we broke down all of the drapes. The patient was repositioned back into a right lateral position. Patient was taped to the table. We rescrubbed. The patient was prepped and draped in usual fashion. After verifying the location of the L1-L2/L2-L3 disc spaces we made a diagonal incision under the left rib cage. This was carried down through the soft tissues and cautery. The anterior fascia was opened using cautery and blunt finger dissection was used to split the oblique muscles. I then used blunt finger dissection to create space in the retroperitoneal space laterally. We were able to find the disc bases however because of the patient's anatomy we decided to only perform discectomy and fusion at the L2/L3 disc space. Please see Dr. Bella's dictation regarding the discectomy and fusion. At the end of his portion of the procedure we irrigated the wound. The oblique muscle fascia was closed using 0 Vicryl in running fashion. Soft tissue was irrigated and closed using 3-0 Vicryl and 3-0 Monocryl. Sterile dressing was applied. The patient was waken extubated and transferred recovery in stable condition. I attest to the content of the Intraoperative Record and any orders documented therein. Any exceptions are noted below.
[2024-10-29] MEDS: HYDROmorphone INJ 2 MG/ML SYR/VIAL IV PRN (14:25)
--- NOTE | 2024-10-29 14:37 | Anesthesiology Progress Note ---
Date of Service October 29, 2024 Anesthesia Post Procedure Vital Signs Vital Signs: Temp Pulse Resp BP Pulse Ox O2 Del Method O2 Flow Rate 10/29/24 14:30 100 H 16 98/60 L 98 Nasal Cannula 3 10/29/24 14:20 100 H 14 111/71 97 Nasal Cannula 3 10/29/24 14:10 94 H 12 114/70 95 Oxymask 4 10/29/24 14:00 95 H 14 122/71 97 Oxymask 6 10/29/24 13:50 97 H 16 131/81 97 Oxymask 6 10/29/24 13:40 36 C L 94 H 18 136/74 100 Oxymask 6 10/29/24 06:19 37.3 C 93 H 20 139/85 95 Room Air Pain Intensity Bilateral Hip: Pain Intensity: 4 Back: Pain Intensity: 6 Transfer of Care Handoff Completed per policy Notes Mental Status: alert / awake / arousable and participated in evaluation Patient Amnestic to Procedure: Yes Nausea / Vomiting: adequately controlled Pain: adequately controlled Airway Patency, RR, SpO2: stable & adequate BP & HR: stable & adequate Hydration State: stable & adequate Anesthetic Complications: no major complications apparent and Pt Satisfied with anesthetic care
[2024-10-29] MEDS ORDERED: VANCOMYCIN CONSULT ACTIVE PRN (15:59)
[2024-10-29] MEDS ORDERED: HYDROmorphone INJ 1 MG/ML SYRINGE IV PRN (15:59)
[2024-10-29] MEDS ORDERED: LORazepam 2 MG/1 ML VIAL IV PRN (15:59)
[2024-10-29] MEDS ORDERED: PROMETHAZINE 12.5 MG/50.5 ML BAG IV PRN (15:59)
[2024-10-29] MEDS ORDERED: ALUMINUM/MAGNESIUM SUSP 30 ML UDC PO PRN (15:59)
[2024-10-29] MEDS ORDERED: FAMOTIDINE 20 MG TAB PO PRN (15:59)
[2024-10-29] MEDS ORDERED: ALBUTEROL HFA 8 GM INHALER INH PRN (15:59)
[2024-10-29] MEDS ORDERED: ACETAMINOPHEN 1,000 MG/100 ML VIAL IV PRN (15:59)
[2024-10-29] MEDS ORDERED: hydrOXYzine HCl 25 MG TAB PO PRN (15:59)
[2024-10-29] MEDS ORDERED: ONDANSETRON 4 MG OD TAB PO PRN (15:59)
[2024-10-29] MEDS ORDERED: DO NOT ADMINISTER FLU VACCINE PRN (15:59)
[2024-10-29] MEDS ORDERED: NALOXONE HCL 0.4 MG/1 ML VIAL/CARP IV PRN (15:59)
[2024-10-29] MEDS ORDERED: DO NOT ADMINISTER PNEUMOCOCCAL VACCINE PRN (15:59)
--- NOTE | 2024-10-29 16:04 | Fluoroscopy Report ---
FL lumbar spine 2-3V CLINICAL HISTORY: L5-S1 anterior discectomy and fusion and L2-L3 discectomy and fusion. COMPARISON STUDY: Lumbar spine MRI May 31, 2024. Fluoroscopy time: 3 minutes and 35 seconds. Number of fluoroscopic images: 6. Ka,r: 145.86 mGy. FINDINGS: Fluoroscopy was provided during L5-S1 anterior discectomy and fusion. Fluoroscopy was also provided during L2-L3 discectomy and fusion via lateral approach. A previous L3-L5 decompression and fusion is noted. IMPRESSION: Fluoroscopy provided during L5-S1 anterior discectomy and fusion and L2-L3 discectomy an d fusion. ACT 112: Negative or not required by law. Electronically signed by: Ludwin Raza M.D. 10/29/2024 4:03 PM
[2024-10-29] MEDS ORDERED: LORazepam 0.5 MG TAB PO PRN (16:30)
[2024-10-29] MEDS: oxyCODONE HCL IR 5 MG TAB (IMMEDIATE RELEASE) PO PRN (17:22)
[2024-10-29] MEDS: NSS + 20MEQ KCL 20 MEQ/1,000 ML BAG IV SCH (17:42)
[2024-10-29] MEDS: dexAMETHasone 6 MG in SYRINGE 0 ML IV SCH (17:42)
[2024-10-29] MEDS ORDERED: hydrALAZINE HCL 20 MG/ML VIAL IV PRN (19:35)
[2024-10-29] MEDS: PRAMIPEXOLE DIHYDROCHLO 0.5 MG TAB PO SCH (19:36)
[2024-10-29] MEDS: DOCUSATE SODIUM/SENNA 50/8.6MG TAB PO SCH (20:13)
[2024-10-30] MEDS: diphenhydrAMINE Capsule 25 MG CAP PO PRN (02:45)
[2024-10-30] MEDS: POLYETHYLENE (MIRALAX) 17 GM PACK PO SCH (05:21)
[2024-10-30] MEDS: PANTOprazole 40 MG TAB PO SCH (07:32)
[2024-10-30] MEDS: VENLAFAXINE HCL XR 75 MG CAPXR PO SCH (07:32)
[2024-10-30 07:42] LABS: Basophils # (auto) 0.01 K/uL (0.00-0.20); Basophils % (auto) 0.1 %; Hematocrit (blood only) 37.6 % (42.0-52.0); Hemoglobin 12.7 g/dl (14.0-18.0); Immature Granulocytes # (auto) 0.15 K/uL (0.01-0.20); Immature Granulocytes % (auto) 0.8 %; Lymphocytes # (auto) 1.37 K/uL (1.20-3.40); Lymphocytes % (auto) 7.3 %; Mean Corpuscular Hemoglobin 29.4 pg (25.0-34.0); Mean Corpuscular Hgb Conc 33.8 g/dL (32.0-36.0); Monocytes # (auto) 0.43 K/uL (0.11-0.59); Monocytes % (auto) 2.3 %; Neutrophils # (auto) 16.81 K/uL (1.40-6.50); Neutrophils % (auto) 89.5 %; Platelet Count 202 K/uL (130-400); RDW Coefficient of Variation 13.2 % (11.5-14.5); RDW Standard Deviation 41.9 fL (36.4-46.3); Red Blood Count 4.32 M/uL (4.70-6.10); White Blood Count 18.77 K/ul (4.8-10.8)
[2024-10-30 07:46] LABS: BUN Creatinine Ratio 26.6 (10-20); Calcium 8.8 mg/dl (8.6-10.3); Creatinine Clr Calc Pharmacy 85.8 ml/min; Potassium 4.6 mmol/L (3.5-5.1)
--- NOTE | 2024-10-30 08:52 | Orthopedic Progress Note ---
Date of Service October 30, 2024 Assessment & Plan (1) Status post lumbar spinal fusion: Patient is postop day 1 from a part 1 out of 2 lumbar decompression and fusion. -Continue to be weightbearing as tolerated and ambulate with assistance. -Pain control as per regimen -Continue to monitor BM/flatus -Would recommend reaching out to Dr. Pena for advancement of diet. I will let nursing staff know. -Reminder to be n.p.o. midnight on 10/31/2024 in preparation for surgery on 11/01/2024. Subjective 10/29/2024 s/p L5-S1 Oblique Lumbar Interbody Fusion, L2-L3 Lateral Interbody Fusion, L5-S1 Anterior Plate, Spinal Cord Monitoring Surgeon: Jv Bella MD s Anterior/Oblique Approach to L1-L3 as well as L5-S1 Disc Spaces Surgeon: Chevy Pena, , Jv Bella Patient is postop day 1 from a part 1 out of [address] Bella with access surgeon Dr. Pena. He is doing well. States that his pain is under control. States that he has some minimal pain in his left side. He has not had a bowel movement but he is passing gas and taking laxatives. He would like to know if he can advance from a liquid diet to something different. Other than that, no other questions or concerns today. He has been up and walking once so far. Denies any issues with this. Review of Systems All systems reviewed & are unremarkable except as noted in HPI & below. Physical Exam General: Alert and oriented. No acute distress. Dressing check satisfactory. He is dry and intact. He has good strength in the bilateral lower extremities. No neurological deficits. Results & Data Results & Data Laboratory Results . Diagnostic Findings . PG Care Time/CCT Total # of Minutes Spent Total Time Spent with Patient: Total time spent is greater than 50% in coordination of care (as documented) at patient's floor/unit and/or counseling patient: Supervising Physician Co-Signing Physician Notes Discussed with Terri Alaniz PA-C and examined patient later in day, agree with exam and plan as above Coding Level of Care Code 72050 Post Operative Follow-Up Diagnoses Status post lumbar spinal fusion Z98.1
--- NOTE | 2024-10-30 09:17 | XRay Report ---
XR lumbar spine 2-3V HISTORY: 79 years-old Male post-op spine surgery acute low back pain COMPARISON: Fluoroscopic images 07/31/2024, CT abdomen and pelvis on 1225 TECHNIQUE: 3 views of the lumbar spine FINDINGS: Lumbar levoscoliosis. Discectomy changes are present at L2-S1. Posterior interbody paras and screw fusi on hardware at L3-L5. Hardware appears intact. Chronic L2 compression deformity along with severe L1- L2 intervertebral disc space narrowing. Moderate multilevel spondylotic spurring and facet arthrosis. Air filled slightly dilated loops of large and small bowel with cholecystectomy. Cardiomegaly. IMPRESSION: 1. No acute fracture or subluxation. 2. Chronic L2 compression deformity. 3. Degenerative and postoperative changes as above with lumbar levoscoliosis. 4. Probable ileus. ACT 112: Negative or not required by law. The above report was generated using voice recognition software. It may contain grammatical, syntax o r spelling errors. Electronically signed by: Brock Lopez M.D. 10/30/2024 9:14 AM
[2024-10-30] MEDS: ENOXAPARIN INJ 40 MG/0.4 ML SYR SQ SCH (09:48)
--- NOTE | 2024-10-30 10:13 | Surgery Progress Note ---
Date of Service October 30, 2024 Assessment & Plan (1) Status post lumbar spinal fusion: Plan: Postoperative day #1 Doing well Will allow him to have full liquids today and tomorrow. Will make him n.p.o. after midnight on Friday for secondary operation Friday No postoperative concerns at this time Admission and Anticipated Discharge Date Admission Date: October 29, 2024 Subjective Patient seen. All things considered doing well. Surgical pain manageable. Tolerating clear liquids and he would like more. No nausea or vomiting. Physical Exam Physical Exam: Alert no acute distress Abdomen is soft with incisional tenderness. Nondistended Results & Data Vital Signs (Past 12 Hours) Vital Signs Temp Pulse Resp BP Pulse Ox O2 Del Method 10/30/24 07:23 36.7 C 99 H 17 104/43 L 91 Room Air 10/30/24 03:17 36.6 C 95 H 18 138/67 94 Room Air 10/29/24 23:00 36.7 C 103 H 18 134/71 95 Room Air PG Care Time/CCT Total # of Minutes Spent Total Time Spent with Patient: Total time spent is greater than 50% in coordination of care (as documented) at patient's floor/unit and/or counseling patient: Coding Level of Care Code 70379 Post Operative Follow-Up Diagnoses Status post lumbar spinal fusion Z98.1
[2024-10-30] MEDS: PRAMIPEXOLE DIHYDROCHLO 0.5 MG TAB PO SCH (11:45)
[2024-10-30] MEDS: MAGNESIUM HYDROXIDE SUSP 30 ML UDC PO PRN (17:32)
[2024-10-30] MEDS: bisacodyL 10 MG SUPP PR PRN (23:10)
[2024-10-31 07:24] LABS: Basophils # (auto) 0.02 K/uL (0.00-0.20); Basophils % (auto) 0.1 %; Hematocrit (blood only) 41.6 % (42.0-52.0); Immature Granulocytes # (auto) 0.16 K/uL (0.01-0.20); Immature Granulocytes % (auto) 0.8 %; Lymphocytes # (auto) 2.02 K/uL (1.20-3.40); Lymphocytes % (auto) 10.7 %; Mean Corpuscular Hemoglobin 29.4 pg (25.0-34.0); Mean Corpuscular Hgb Conc 33.7 g/dL (32.0-36.0); Mean Corpuscular Volume 87.4 fL (80.0-100.0); Mean Platelet Volume 9.9 fL (9.4-12.4); Monocytes # (auto) 0.87 K/uL (0.11-0.59); Monocytes % (auto) 4.6 %; Neutrophils # (auto) 15.86 K/uL (1.40-6.50); Neutrophils % (auto) 83.8 %; Platelet Count 216 K/uL (130-400); RDW Coefficient of Variation 13.6 % (11.5-14.5); Red Blood Count 4.76 M/uL (4.70-6.10); White Blood Count 18.93 K/ul (4.8-10.8)
[2024-10-31 07:52] LABS: BUN Creatinine Ratio 34.2 (10-20); Calcium 9.4 mg/dl (8.6-10.3); Creatinine Clr Calc Pharmacy 89.2 ml/min; Potassium 3.9 mmol/L (3.5-5.1)
[2024-10-31] MEDS: tiZANidine HCL 4 MG TABLET PO PRN (08:26)
--- NOTE | 2024-10-31 10:36 | Orthopedic Progress Note ---
Date of Service October 31, 2024 Assessment & Plan (1) Status post lumbar spinal fusion: Patient is postop day 2 from a part 1 out of 2 lumbar decompression and fusion. -Continue to be weightbearing as tolerated and ambulate with assistance. -Pain control as per regimen -Continue to monitor BM/flatus. He had a BM already. -Reminder to be n.p.o. midnight on 10/31/2024 in preparation for surgery on 11/01/2024. Subjective 10/29/2024 s/p L5-S1 Oblique Lumbar Interbody Fusion, L2-L3 Lateral Interbody Fusion, L5-S1 Anterior Plate, Spinal Cord Monitoring Surgeon: Jv Bella MD s Anterior/Oblique Approach to L1-L3 as well as L5-S1 Disc Spaces Surgeon: Chevy Pena DO, Jv Bella Patient is postop day 2 from a part 1 out of [address] Bella with access surgeon Dr. Pena. He is doing well. Dr. Pena did advance his diet from clear to full liquids. He did have some low back pain this AM but other nuñez is doing well. He is prepared for tomorrow's surgery. he is aware to be NPO at midnight. Review of Systems All systems reviewed & are unremarkable except as noted in HPI & below. Physical Exam General: Alert and oriented. No acute distress. Dressing check satisfactory. He is dry and intact. He has good strength in the bilateral lower extremities. No neurological deficits. Results & Data Results & Data Laboratory Results . Diagnostic Findings . PG Care Time/CCT Total # of Minutes Spent Total Time Spent with Patient: Total time spent is greater than 50% in coordination of care (as documented) at patient's floor/unit and/or counseling patient: Coding Level of Care Code 38249 Post Operative Follow-Up Diagnoses Status post lumbar spinal fusion Z98.1
[2024-10-31] MEDS: ACETAMINOPHEN 500 MG TAB PO PRN (11:15)
--- NOTE | 2024-10-31 11:27 | Surgery Progress Note ---
Date of Service October 31, 2024 Assessment & Plan (1) Status post lumbar spinal fusion: Plan: Postoperative day #2 Doing very well. For hardware removal tomorrow. N.p.o. after midnight Admission and Anticipated Discharge Date Admission Date: October 29, 2024 Subjective Patient seen. Just had a large bowel movement which helped his abdominal discomfort considerably. Physical Exam Physical Exam: Alert. No acute distress Both incisions/dressings are clean dry intact. Results & Data Vital Signs (Past 12 Hours) Vital Signs Temp Pulse Resp BP Pulse Ox O2 Del Method 10/31/24 08:10 36.4 C L 97 H 16 157/90 H 97 Room Air PG Care Time/CCT Total # of Minutes Spent Total Time Spent with Patient: Total time spent is greater than 50% in coordination of care (as documented) at patient's floor/unit and/or counseling patient: Coding Level of Care Code 57826 Post Operative Follow-Up Diagnoses Status post lumbar spinal fusion Z98.1
[2024-10-31] MEDS: HYDROmorphone INJ 0.5 MG/0.5 ML SYR IV PRN (14:07)
--- NOTE | 2024-10-31 15:26 | Ultrasound Report ---
Exam: Left lower extremity venous duplex Doppler. History: History of back surgery and left lower extremity swelling. Comparison:None. Findings: Left common femoral, femoral, popliteal, posterior tibial, peroneal and anterior tibial veins demonstrate compression, augmentation and/or color flow. Impression: No deep vein thrombus. Electronically signed by Garo Tapia 10-31-2024 3:25 PM
[2024-10-31] MEDS: LACTATED RINGER'S 1,000 ML IV SCH (20:02)
[2024-11-01] MEDS ORDERED: LACTATED RINGER'S 1,000 ML IV SCH (06:00)
[2024-11-01] MEDS ORDERED: PROMETHAZINE HCL 6.25 MG in SODIUM CHLORIDE 0.9% 50 ML IV PRN (07:08)
[2024-11-01] MEDS ORDERED: ATROPINE SULFATE 0.1 MG/ML 10ML SYR IV PRN (07:08)
[2024-11-01] MEDS ORDERED: ONDANSETRON INJ 2 MG/ML 2 ML VIAL IV PRN (07:08)
[2024-11-01] MEDS ORDERED: ePHEDrine sulfate 50 MG/ML AMP IV PRN (07:08)
--- NOTE | 2024-11-01 07:08 | Anesthesiology Consultation ---
Date of Service November 01, 2024 Assessment & Plan Chart Review Chart Review: Acceptable Risk for Surgery and Patient NOT seen in Pre Admission Testing Consults Requested none ASA ASA2 Proposed Anesthesia Anesthesia Type: General Risk / Benefits Reviewed With: PT / POA / Parent / Guardian, Accepts Plan and Informed Consent Obtained History Surgery Operation Date: 10/29/24 07:30 Proposed Procedures p L5-S1 Oblique Lumbar Interbody Fusion, L2-L3, L1-L2 Lateral Interbody Fusion, L5-S1 Anterior Plate, Spinal Cord Monitoring - Jv Bella MD s Anterior/Oblique Approach to L1-L3 as well as L5-S1 Disc Spaces - Chevy Pena, DO Operation Date: 11/01/24 07:30 Proposed Procedures p L3-L5 Pedicle Screws Removal , T10 Through Pelvis Instrumental Fusion, L1,L2 Laminectomies with CT Navigation, Spinal Cord Monitoring - Jv Bella MD Height/Weight Height: 5 ft 9.5 in Weight: 89 kg Allergies Allergy/AdvReac Type Severity Reaction Status Date / Time amoxicillin Allergy Unknown HIVES Verified 10/29/24 06:24 cefuroxime Allergy Unknown RASH Verified 10/29/24 06:24 Cephalosporins Allergy Unknown rash Verified 10/29/24 06:24 Penicillins Allergy Unknown RASH AND Verified 10/29/24 06:24 HIVES pollen extracts Allergy Unknown CONGESTION Verified 10/29/24 06:24 Sulfa (Sulfonamide Allergy Unknown Rash Verified 10/29/24 06:24 Antibiotics) cyclobenzaprine AdvReac Unknown pt. Verified 10/29/24 06:24 experienced hallucinations,disorganized thoughts Medications Home Medications Medication Instructions Recorded Confirmed Last Taken omeprazole 20 mg tablet,delayed 20 mg PO QAM #0 caps 02/02/13 10/29/24 10/29/24 05:30 release loratadine-pseudoephedrine ER 10 1 tab PO UD PRN ALLERGY RELIEF #90 08/18/20 10/29/24 2 Weeks Ago mg-240 mg tablet,extended tabs ~10/15/24 [id number] lisinopril 10 mg tablet 10 mg PO HS #90 tabs 04/13/24 10/29/24 10/28/24 20:00 albuterol sulfate 90 mcg/actuation 2 puff inhalation QID PRN 04/16/24 10/29/24 Unknown aerosol inhaler shortness of breath or wheezing #6.7 grams aspirin 81 mg tablet,delayed 81 mg PO QAM 08/08/24 10/29/24 1 Week Ago release ~10/22/24 venlafaxine 75 mg capsule,extended 75 mg PO QAM #90 caps 08/17/24 10/29/24 10/28/24 09:00 release 24 hr pramipexole 1 mg tablet 1 - 2 mg PO UD 10/01/24 10/29/24 10/28/24 20:00 tramadol 50 mg tablet 50 - 100 mg PO UD PRN pain 10/01/24 10/29/24 2 Days Ago ~10/27/24 Active Medications Generic Name Dose Route Start Last Admin Trade Name Freq PRN Reason Stop Dose Admin Acetaminophen 1,000 mg 10/29/24 15:59 10/31/24 11:15 Acetaminophen 500 Mg Tab PO 11/28/24 15:58 1,000 mg Q8H PRN Administration MILD Pain Scale 1,2,3 & Pre PT Bisacodyl 10 mg 10/29/24 15:59 10/30/24 23:10 Bisacodyl 10 Mg Supp GA 11/28/24 15:58 10 mg DAILY PRN Administration Constipation Diphenhydramine HCl 25 mg 10/29/24 15:59 10/30/24 02:45 Diphenhydramine Capsule 25 Mg Cap PO 11/28/24 15:58 25 mg Q6H PRN Administration Allergic Rhinitis/Insomnia Hydromorphone HCl 0.5 mg 10/29/24 15:59 10/31/24 14:07 Hydromorphone Inj 0.5 Mg/0.5 Ml Syr IV 11/12/24 15:58 0.5 mg Q3H PRN Administration MODERATE Pain (Scale 4,5,6) & Pre PT Lactated Ringer's 1,000 mls @ 80 mls/hr 10/31/24 21:00 10/31/24 20:02 Lr IV 11/01/24 08:00 80 mls/hr .[id number] EVERARDO Administration Magnesium Hydroxide 30 ml 10/29/24 15:59 10/30/24 17:32 Magnesium Hydroxide Susp 30 Ml Udc PO 11/28/24 15:58 30 ml Q24H PRN Administration Constipation Oxycodone HCl 5 - 10 mg 10/29/24 15:59 11/01/24 06:10 Oxycodone Hcl Ir 5 Mg Tab (Immediate Release) PO 11/12/24 15:58 10 mg Q4H PRN Administration Pain & Pre PT Pantoprazole Sodium 40 mg 10/30/24 09:00 10/31/24 08:26 Pantoprazole 40 Mg Tab PO 11/29/24 08:59 40 mg QAM EVERARDO Administration Pramipexole Dihydrochloride 1 mg 10/30/24 12:00 10/31/24 11:16 Pramipexole Dihydrochlo 0.5 Mg Tab PO 11/29/24 11:59 1 mg DAILY@1200 EVERARDO Administration Pramipexole Dihydrochloride 2 mg 10/29/24 21:00 10/31/24 20:04 Pramipexole Dihydrochlo 0.5 Mg Tab PO 11/28/24 20:59 2 mg HS EVERARDO Administration Senna/Docusate Sodium 2 tab 10/29/24 21:00 10/31/24 20:03 Docusate Sodium/Senna 50/8.6mg Tab PO 11/28/24 20:59 Not Given HS EVERARDO Tizanidine HCl 4 mg 10/29/24 15:59 10/31/24 20:05 Tizanidine Hcl 4 Mg Tablet PO 11/28/24 15:58 4 mg Q8H PRN Administration Muscle Spasm Venlafaxine HCl 75 mg 10/30/24 09:00 10/31/24 08:26 Venlafaxine Hcl Xr 75 Mg Capxr PO 11/29/24 08:59 75 mg QAM EVERARDO Administration NPO Date Last Intake of Fluids: 10/31/24 Time Last Intake of Fluids: 21:30 Date Last Intake of Solids: 10/31/24 Time Last Intake of Solids: 18:00 Past Medical History Medical History Arthritis Diabetes Spondylolisthesis of lumbar region Hx of renal failure History of COVID-19 (~2021) Anxiety and depression Hx of migraines History of kidney stones Obesity BPH (benign prostatic hyperplasia) GERD (gastroesophageal reflux disease) Sleep apnea Restless leg syndrome HTN (hypertension) Exercise / Class Metabolic Activity II 4-5 Yardwork/Stairs/Walk up hill Past Family History Family History Brother Colorectal cancer Father Bladder cancer Myocardial infarction Heart disease Daughter Bipolar disorder Mother Cancer Other No family history of adverse response to anesthesia No pertinent family history Denies family history of Ovarian cancer Prostate cancer Breast cancer Past Surgical History Surgical History S/P repair of hydrocele S/P trigger finger release Fusion of spine H/O umbilical hernia repair History of tooth extraction History of tonsillectomy and adenoidectomy History of cataract surgery History of cystoscopy History of anesthesia reaction Status post correction of deviated nasal septum S/P TURP History of colonoscopy History of cholecystectomy Past Anesthesia History No Hx of Anesthesia Complications and No Family Hx of Anesthesia Complications History of PONV No Hx of PONV and No Hx of Motion Sickness Social History Smoking Status: Former smoker tobacco type: cigarettes Do You Dip or Chew Tobacco: No Smoking End Date: 1989 Hx Alcohol Use: Yes alcohol intake frequency: other Alcohol Intake Frequency Comment: 1x/month Hx Substance Use: No substance use type: does not use Physical Exam Vital Signs Last Vital Signs Temp 37.6 C H 11/01/24 06:41 Pulse 93 H 11/01/24 06:41 Resp 18 11/01/24 06:41 BP 151/87 H 11/01/24 06:41 Pulse Ox 93 11/01/24 06:41 O2 Del Method Room Air 11/01/24 06:41 O2 Flow Rate 3 10/29/24 16:52 Constitutional no acute distress ENMT Mouth: no dentition abnormality Thyromental Distance: > or= 3.5 Finger Breadths Mallampati Class: II Neck normal visual inspection Respiratory normal respiratory effort; no respiratory distress Auscultation: lungs clear to auscultation bilaterally Cardiovascular Rate/Rhythm: regular rate and regular rhythm Heart Sounds: no murmur Musculoskeletal Spine: normal cervical ROM Psychiatric Orientation: alert and oriented x 3 Testing Laboratory Results Blood Type O Positive 10/29/24 06:04 Antibody Screen NEGATIVE 10/29/24 06:04 11/01/24 10/31/24 06:39 20:34 POC Glucose 72 150 H Electrocardiogram Date: 10/05/24 NSR, rate 66 bpm Left axis deviation Chest X-Ray Date: 10/05/24 No acute cardiopulmonary pathology seen. Stress Test Date: 05/18/24 METS 4.6 MPHR 88% No evidence of inducible ischemia at the workload achieved Hypotensive response to exercise Poor exercise tolerance EF 60-65% Moderate cLVH Borderline dilated RV No significant valvular pathology Pulmonary Function Test Date: 05/10/24 Normal spirometry and lung volumes with diffusion capacity not adjusted for hemoglobin lower limits of normal.
[2024-11-01 07:16] LABS: Basophils # (auto) 0.01 K/uL (0.00-0.20); Basophils % (auto) 0.1 %; Eosinophils # (auto) 0.06 K/uL (0.00-0.50); Eosinophils % (auto) 0.7 %; Hemoglobin 12.5 g/dl (14.0-18.0); Immature Granulocytes # (auto) 0.06 K/uL (0.01-0.20); Immature Granulocytes % (auto) 0.7 %; Lymphocytes # (auto) 2.12 K/uL (1.20-3.40); Mean Corpuscular Hemoglobin 29.3 pg (25.0-34.0); Mean Corpuscular Hgb Conc 32.9 g/dL (32.0-36.0); Mean Platelet Volume 10.1 fL (9.4-12.4); Monocytes # (auto) 0.61 K/uL (0.11-0.59); Monocytes % (auto) 6.9 %; Neutrophils # (auto) 5.96 K/uL (1.40-6.50); Neutrophils % (auto) 67.6 %; Platelet Count 169 K/uL (130-400); RDW Coefficient of Variation 13.6 % (11.5-14.5); RDW Standard Deviation 44.4 fL (36.4-46.3); Red Blood Count 4.27 M/uL (4.70-6.10); White Blood Count 8.82 K/ul (4.8-10.8)
[2024-11-01] MEDS ORDERED: VANCOMYCIN CONSULT ACTIVE PRN ×2 (07:21→19:31)
[2024-11-01] MEDS ORDERED: VANCOMYCIN HCL 1,250 MG in SODIUM CHLORIDE 0.9% 500 ML IV ONE (07:21)
--- NOTE | 2024-11-01 07:29 | History & Physical Bridge Note ---
Date of Service November 01, 2024 History & Physical Bridge Note I have examined the patient, reviewed the History & Physical and in the interval since the performance of the History & Physical I have noted the following changes of clinical significance: no changes noted Plan for stage 2 of planned staged procedure, [id number] fusion
[2024-11-01 07:35] LABS: BUN Creatinine Ratio 33.8 (10-20); Calcium 8.7 mg/dl (8.6-10.3); Creatinine Clr Calc Pharmacy 84.7 ml/min; Potassium 3.7 mmol/L (3.5-5.1)
[2024-11-01] MEDS: VANCOMYCIN HCL 1,250 MG in SODIUM CHLORIDE 0.9% 250 ML IV SCH (07:45)
[2024-11-01] MEDS: TRANEXAMIC ACID / 0.7% NACL 1000MG/100ML BAG IV ONE (08:48)
[2024-11-01] MEDS: FLOSEAL HEMOSTATIC MATRIX 10ML TOP ONE ×2 (10:35→15:32)
[2024-11-01] MEDS ORDERED: SODIUM CHLORIDE 0.9% 100 ML IV PRN (15:12)
[2024-11-01 15:21] LABS: iSTAT Creatinine 0.9 mg/dl (0.6-1.3); iSTAT Hemoglobin 8.5 g/dl (14.0-18.0); iSTAT Ionized Calcium 1.15 mmol/l (1.12-1.32); iSTAT Potassium 3.6 mmol/L (3.3-5.0)
[2024-11-01] MEDS: SURGICEL ABSORB HEMOSTAT 2IN X 14IN TOP ONE (15:32)
--- NOTE | 2024-11-01 15:34 | Fluoroscopy Report ---
FL lumbar spine 2-3V CLINICAL HISTORY: H27-[id number] fusion COMPARISON STUDY: 10/30/2024 FLUOROSCOPY TIME: 13 seconds FLUOROSCOPY IMAGES: 9 EXPOSURE DOSE: 7 mGy FINDINGS: Fluoroscopy was provided for thoracic spine surgery. IMPRESSION: Intraoperative fluoroscopy. ACT 112: Negative or not required by law. Electronically signed by: Darien Montes M.D. 11/01/2024 3:33 PM
[2024-11-01] MEDS: VANCOMYCIN HCL 1,000 MG/270 ML BAG IV ONE (15:37)
[2024-11-01] MEDS: BUPIVACAINE 0.5 % 5 MG/1 ML MPF 30ML VIAL INFIL ONE (15:55)
--- NOTE | 2024-11-01 16:17 | Post Operative Brief Note ---
PG Immediate Post Op with CF Date of Surgery November 01, 2024 Pre & Post Diagnosis Operation Date: 11/01/24 07:30 Pre-Op Diagnosis: Spondylolsthesis, Lumbar Disc Degeneration, Lumbar spinal stenosis due to adjacent segment diseaseafter fusion procedure, Lumbar radiculopathy, Lumbosacral facet joint syndrome and, Sacroilitis Post-Op Diagnosis: Spondylolsthesis, Lumbar Disc Degeneration, Lumbar spinal stenosis due to adjacent segment diseaseafter fusion procedure, Lumbar radiculopathy, Lumbosacral facet joint syndrome and, Sacroilitis I identified the patient and participated in the time-out.: Yes Procedure Operation Date: 11/01/24 07:30 Actual Procedures p L3-L5 Pedicle Screws Removal , T10 Through Pelvis Instrumented Fusion, L1,L2, Left L5 Laminectomies with CT Navigation, Spinal Cord Monitoring(Not Applicable) - Jv Bella MD Surgeon Jv Bella MD Film Crew Member Miko Finley Estimated Blood Loss 750 Findings Consistent with Post-Op Diagnosis Fluids Transfused 1 unit pRBCs Specimens Specimen Description: None per surgeon. Drains Atul Drain (15 Fr. ) and Kendrick Catheter (In place prior to operating room. ) Anesthesia Type General Complications none Disposition Disposition: Recovery Room
[2024-11-01] MEDS: fentaNYL citrate PF 100 MCG/2 ML VIAL IV PRN (16:20)
--- NOTE | 2024-11-01 16:26 | Operative Report ---
[facility] Post Operative Report Pre & Post Diagnosis Operation Date: 11/01/24 07:30 Pre-Op Diagnosis: Spondylolsthesis, Lumbar Disc Degeneration, Lumbar spinal stenosis due to adjacent segment diseaseafter fusion procedure, Lumbar radiculopathy, Lumbosacral facet joint syndrome and, Sacroilitis Post-Op Diagnosis: Spondylolsthesis, Lumbar Disc Degeneration, Lumbar spinal stenosis due to adjacent segment diseaseafter fusion procedure, Lumbar radiculopathy, Lumbosacral facet joint syndrome and, Sacroilitis I identified the patient and participated in the time-out.: Yes Procedure Posterior Spinal Fusion T10-11 () Posterior Spinal Fusion T11-12 () Posterior Spinal Fusion T12-L1 () Posterior Spinal Fusion L1-2 () Posterior Spinal Fusion L2-3 () Posterior Spinal Fusion L5-S1 () Posterior Pedicle Screw Instrumentation T10-S1 (71245) Instrumentation of the Pelvis (13369) Use of Stereotactic CT Guidance For Spinal Instrumentation (01443) Laminectomy with Medial Facetectomy L1-2 (79055) Laminectomy with Medial Facetectomy L2-3 (46288) Laminectomy with Medial Facetectomy L5-S1 (40191) Use of Allograft and local Autograft Morselized for Spine Fusion (96132, 87338) Surgeon Jv Bella MD Asbestos Shingle Roofer Miko Finley Estimated Blood Loss 750 Findings Consistent with Post-Op Diagnosis Specimens None Drains Atul Drain Anesthesia Type General Complications none Disposition Disposition: Recovery Room Indications Planned second Stage of Anterior Posterior Lumbar Fusion Description of Procedure Patient was brought to the operating room and placed in the prone position on the Alex spine table after general anesthesia was induced. IV antibiotics were given before the incision, SCDs attached for DVT prophylaxis. All bony prominences were padded and the patient was prepped and draped in the usual sterile fashion. Verbal timeout performed identify the patient by name date of verified the correct procedure. Preoperative fluoroscopy was used to approximate a skin incision from T10 down to the sacrum. Skin was incised midline with a 10 blade scalpel. Bovie electrocautery was then used to dissect down to the dorsal fascia, fascia was s plit midline over the spinous processes from T10 down to the sacrum. Bleeding was controlled using electrocautery, subperiosteal dissection was carried out to expose the lamina facet joint and transverse processes from T10-S1. Prior lumbar instrumentation from L3-L5 was identified. There was considerable bone overgrowth encasing the screws. Bone overgrowth was removed with osteotome and high-speed bur. Previous lumbar instrumentation from L3-L5 was removed including setscrews rods and pedicle screws bilaterally. Previous pedicle screw tracts were sounded with a ball-tipped probe and revealed no evidence of breach, they were thoroughly irrigated. At this point a spinous process clamp was attached to the L2 spinous process. [employer] O-arm was brought in and CT scans were obtained of the pelvis lumbar and lower thoracic spine. These images were uploaded to the [employer] navigation unit for intraoperative stereotactic navigation for instrumentation of the thoracic lumbar sacral spine as well as pelvis. I began with instrumentation of the pelvis. Using CT guided navigation I created a tract between the S1 and S2 foramen and the lateral aspect of the sacral ala extending across the SI joint into the ilium of the pelvis between the inner and outer table and above the sciatic notch. This was then tapped and an 8.5 mm x 70 mm screw was placed through the sacral ala into the right aspect of the pelvis. The same procedure was repeated on the left using the same landmarks and utilizing the same size screw for instrumentation of the pelvis for added stability given the length of the construct. We then began working rostrally starting with S1 pedicle screws and proceeding up to T10. At each level I utilized a navigated bur from [employer] to breach the outer cortex of the pedicle, followed by navigated awl to cannulate tracts into the pedicle of each vertebral body bilaterally. The exception to this was hide I used the navigated pointer to shawn the trajectory of the previous pedicle screw tracks at L3-L4 and L5 bilaterally. Using the [employer] navigation system and navigated coal tram driver I then placed pedicle screws at each level from T10-S1 bilaterally. Lumbar pedicle screws were stimulated by neuromonitoring with no evidence of breach. The O-arm was brought back in for repeat scans following instrumentation. All pedicle screws in the thoracic lumbar and sacrum were reviewed personally on the in room viewer and determined to be in good position with no evidence of breach. Pelvic screws were also visualized with no evidence of breach and to be in good position. Motors were run by neuromonitoring showing no decrease in motor signals to the lower extremity following thoracic screw placement. After the pedicle screw instrumentation was complete I then began the decompression. I began at the L5-S1 level given the severe foraminal stenosis on the left at L5-S1, hemilaminectomy was performed on the left and the left L5 lamina was removed. High-speed bur was used to thin the the facet joint at L5- S1 on the left and the facet joint was undercut greater than 50% to provide good decompression of the L5-S1 foramen and the exiting L5 nerve root. I was able to easily pass a ball-tipped probe into the foramen with no residual compression. This completed the hemilaminectomy with facetectomy at the L5-S1 level. I then moved rostrally to address the severe central canal and lateral recess stenosis at both the L1 and the L2 level spinous processes of L1 and L2 were removed with a Le[place]ell rongeur. I used the high-speed navigated [place] Brandon bur from [employer] to thin the lamina at L1 and L2 to expose the ligamentum flavum. There was considerable scar tissue at the L2-3 junction from his prior surgery as well as bone growth from the use of BMP posteriorly over his prior surgery. This was removed with Kerrison rongeur. I removed the remaining bone of the L1 and 2 lamina with Kerrison rongeur using a Janice elevator to protect the dura. Ligamentum flavum was completely removed at L1-2 and L2-3. He was found to be severe facet hypertrophy at both L1-2 and L2-3 contributing to the central canal and lateral recess stenosis. I performed undercutting of the bilateral L1-2 and L2-3 facet joints with Kerrison rongeur to adequately decompress the lateral recess. Able to easily pass the probe out into the L1-2 and L2-3 foramen bilaterally. No evidence of dural defect following the L1 and L2 laminectomies with medial facetectomies for decompression of the disc spaces. There was excellent decompression of the traversing nerve roots as well as the central thecal sac. This point the wound had been thoroughly irrigated multiple times using approximately 5 L of sterile saline. Then began the posterior fusions. I decorticated the sacral ala and transverse process as well as the remaining L5- S1 facet joint bilaterally. A mixture of local morselized bone harvested from the laminectomy sites was mixed with [employer] bone graft beef farmer. This was packed into the remaining facet joint as well as posterior lateral gutters at L5-S1 to encourage posterior lateral fusion. I then moved rostrally and decorticated the L1-2 facet joints, L2-3 facet joints as well as the associated transverse processes. Facet joints were decorticated at T10-11 T11-12 and T12- L1 as well as the remaining lamina and transverse processes. I packed the same bone graft mixture along the T10-11, T11-12 and T12-L1, L1-L2 and L2-L3 posterior elements to encourage posterior lateral fusion. Bilateral rods were then bent utilizing the [place] paras bending system. Rods were seated into the tulip heads from the thoracic screws down to the pelvic screws. Reduction towers were used to aid in placement of the setscrews. These were placed and final tightened bilaterally. Final x-rays reviewed from the C arm showed the paras passing through all screw heads and extending above and below the construct, no evidence of instrumentation and improved lordosis. Deep Atul drain was placed below the fascia exiting out through the skin. The fascia was then closed with running 0 strata fix suture. A running 2.0 strata fix suture was used to close the subcutaneous layer after thorough irrigation and placement of vancomycin powder. Skin was then closed with priscilla. Xeroform and sterile dressing applied. Drain was attached to accordion suction. Patient was then placed on his hospital bed and transferred to PACU in stable condition. I attest to the content of the Intraoperative Record and any orders documented therein. Any exceptions are noted below.
[2024-11-01] MEDS: HYDROmorphone INJ 2 MG/ML SYR/VIAL IV PRN (16:40)
[2024-11-01] MEDS: ACETAMINOPHEN 1,000 MG/100 ML VIAL IV STA (17:17)
[2024-11-01] MEDS: dexAMETHasone 10 MG in SYRINGE 0 ML IV STA (17:57)
[2024-11-01 18:49] LABS: iSTAT Art Bld Gas pCO2 Correct 51 mmHg (35-46); iSTAT Arterial Blood Gas HCO3 26 meg/L (19-24); iSTAT Arterial Blood Gas pCO2 51 mmHg (35-46); iSTAT Arterial Blood Gas pH 7.32 (7.35-7.45); iSTAT Arterial Blood Gas pO2 85 mmHg (80-95); iSTAT Arterial Blood Gas pO2 C 85; iSTAT Carbon Dioxide 28 mmol/L (24-31); iSTAT FiO2 50 %; iSTAT Hematocrit 30 % (42-52); iSTAT Hemoglobin 10.2 g/dl (14.0-18.0); iSTAT Potassium 3.9 mmol/L (3.3-5.0); iSTAT Sample Type Arterial; iSTAT Site Art Line; iSTAT Sodium 136 mmol/L (135-144); iSTAT SpO2 94
--- NOTE | 2024-11-01 18:59 | Hospitalist Consultation ---
Date of Consultation November 01, 2024 Assessment & Plan (1) Status post lumbar spinal fusion: Plan hypoxia- preop pulmonary note very helpful, and given overall reasonably clear CXR and reassuring ABG/exam, suspect anesthesia effects + JOEY at play - bipap started. continue on this, follow clinically. serial exams, time acute blood loss anemia - BP reasonable; given 1 unit PRBC in OR. check CBC and BMP once again this evening s/p extensive lumbar surgery - per surgical team DVT proph - per surgical team continue to follow, for PCU History of Present Illness Reason for Consultation: hypoxia Attending Physician: Jv Bella MD History of Present Illness 79yo male still fairly groggy after very longOR procedure - refractory hypoxia post op - we were asked to see no meaningful HPI/ROS obtainable from pt. chart reviewed. nursing noted ~7hr procedure, 4L fluids, 1 unit blood. had pain but seems better controlled now but also with pain meds respirations were a little less robust and BP starting to get a little softer. respiratory therapy at bedside at same time as myself - assistance greatly appreciated. Allergies Allergy/AdvReac Type Severity Reaction Status Date / Time amoxicillin Allergy Unknown HIVES Verified 10/29/24 06:24 cefuroxime Allergy Unknown RASH Verified 10/29/24 06:24 Cephalosporins Allergy Unknown rash Verified 10/29/24 06:24 Penicillins Allergy Unknown RASH AND Verified 10/29/24 06:24 HIVES pollen extracts Allergy Unknown CONGESTION Verified 10/29/24 06:24 Sulfa (Sulfonamide Allergy Unknown Rash Verified 10/29/24 06:24 Antibiotics) cyclobenzaprine AdvReac Unknown pt. Verified 10/29/24 06:24 experienced hallucinations,disorganized thoughts Home Medications Medication Instructions Recorded Confirmed Type omeprazole 20 mg tablet,delayed 20 mg PO QAM #0 caps 02/02/13 10/29/24 History release loratadine-pseudoephedrine ER 10 1 tab PO UD PRN ALLERGY RELIEF #90 08/18/20 10/29/24 History mg-240 mg tablet,extended tabs [id number] lisinopril 10 mg tablet 10 mg PO HS #90 tabs 04/13/24 10/29/24 Rx albuterol sulfate 90 mcg/actuation 2 puff inhalation QID PRN 04/16/24 10/29/24 Rx aerosol inhaler shortness of breath or wheezing #6.7 grams aspirin 81 mg tablet,delayed 81 mg PO QAM 08/08/24 10/29/24 History release venlafaxine 75 mg capsule,extended 75 mg PO QAM #90 caps 08/17/24 10/29/24 Rx release 24 hr pramipexole 1 mg tablet 1 - 2 mg PO UD 10/01/24 10/29/24 History tramadol 50 mg tablet 50 - 100 mg PO UD PRN pain 10/01/24 10/29/24 History Patient History Medical History Arthritis Diabetes Spondylolisthesis of lumbar region Hx of renal failure History of COVID-19 (~2021) Anxiety and depression Hx of migraines History of kidney stones Obesity BPH (benign prostatic hyperplasia) GERD (gastroesophageal reflux disease) Sleep apnea Restless leg syndrome HTN (hypertension) Surgical History S/P repair of hydrocele S/P trigger finger release Fusion of spine H/O umbilical hernia repair History of tooth extraction History of tonsillectomy and adenoidectomy History of cataract surgery History of cystoscopy History of anesthesia reaction Status post correction of deviated nasal septum S/P TURP History of colonoscopy History of cholecystectomy Family History Brother Colorectal cancer Father Bladder cancer Myocardial infarction Heart disease Daughter Bipolar disorder Mother Cancer Other No family history of adverse response to anesthesia No pertinent family history Denies family history of Ovarian cancer Prostate cancer Breast cancer Social History Smoking Status: Former smoker Tobacco Type: Cigarettes Age Started Using Tobacco: 15; Age Quit Using Tobacco: 44; packs per day: 1.5; Smoking End Date: 1989; Second Hand Exposure: No; Do You Dip or Chew Tobacco: No; Tobacco Cessation Education Requested by Patient: No Hx Alcohol Use: Yes Hx Substance Use: No Preferred Language: Latvian Communication Ability: Effective Visual Impairment: No Limitations Swiss Type Screw Machine Operator Required: No Beliefs That Will Affect Care: None marital status: Current Living Situation: Spouse current occupational status: retired Other Information That Helps Us Care for You: No Feels Safe at Home: Yes Safety Concerns: Feels Safe At This Time during the past year weight has: decreased > 10 lbs Physical Activity Frequency: 3-4 Times per Week Seatbelt Use: always Assistive Devices: Cane and Walker Physical Exam Physical Exam: awake enough to be able to grunt some and moan with repositioning, but no ability to give HPI/ROS. heent nc at mmm. cardio distant but no r/m/g. lungs sl quiet throughout but no r/r/w spontaneous effort. no accessory muscle use. neuro without focal deficits/lateralizing signs. skin without pallor. CXR official read pending, but maybe sl congestion more prominant at bases, generally clear. ABG overall reassuring. post op CBC, BMP noted Results & Data Results & Data Vital Signs (Past 12 Hours) Vital Signs Temp Pulse Pulse Resp BP BP Pulse Ox 11/01/24 18:45 92 H 18 114/62 97 11/01/24 18:30 96 H 16 112/59 L 94 11/01/24 18:30 97 H 18 95 11/01/24 18:15 98.6 F 97 H 18 115/67 117/47 L 95 11/01/24 18:05 98 H 14 113/63 108/63 92 11/01/24 17:55 96 H 16 112/60 102/55 L 90 11/01/24 17:45 100 H 24 125/72 109/54 L 88 L 11/01/24 17:35 97 H 24 132/71 138/51 L 90 11/01/24 17:25 97 H 16 141/76 H 150/77 H 91 11/01/24 17:15 95 H 20 143/79 H 159/79 H 92 11/01/24 17:05 98 H 16 128/71 145/60 H 90 11/01/24 16:55 95 H 14 147/76 H 143/57 H 88 L 11/01/24 16:45 92 H 14 125/72 130/73 94 11/01/24 16:35 90 12 123/78 124/64 96 11/01/24 16:25 89 20 133/73 144/68 H 96 11/01/24 16:15 83 24 110/75 102/65 92 11/01/24 16:05 97.2 F L 84 16 118/63 98 O2 Del Method O2 Flow Rate FiO2 11/01/24 18:45 BiPAP 50 04/07/25 18:30 BiPAP 50 11/01/24 18:30 50 11/01/24 18:15 BiPAP 50 11/01/24 18:05 Oxymask 8 11/01/24 17:55 Oxymask 12 11/01/24 17:45 Oxymask 10 11/01/24 17:35 Oxymask 10 11/01/24 17:25 Oxymask 10 11/01/24 17:15 Oxymask 10 11/01/24 17:05 Oxymask 10 11/01/24 16:55 Oxymask 6 11/01/24 16:45 Oxymask 6 11/01/24 16:35 Oxymask 12 11/01/24 16:25 Oxymask 12 11/01/24 16:15 Oxymask 12 11/01/24 16:05 Oxymask 12 PG Care Time/CCT Total # of Minutes Spent Total Time Spent with Patient: Total time spent is greater than 50% in coordination of care (as documented) at patient's floor/unit and/or counseling patient: Coding Level of Care Code 03307 IN/OBS CONSULT LVL 4,60M Diagnoses Status post lumbar spinal fusion Z98.1
--- NOTE | 2024-11-01 19:00 | Anesthesiology Progress Note ---
Date of Service November 01, 2024 Anesthesia Post Procedure Vital Signs Vital Signs: Temp Pulse Pulse Pulse Pulse Resp BP 11/01/24 18:30 97 H 18 11/01/24 18:15 37 C 97 H 18 115/67 11/01/24 18:05 98 H 14 113/63 11/01/24 17:55 96 H 16 112/60 11/01/24 17:45 100 H 24 125/72 11/01/24 17:35 97 H 24 132/71 11/01/24 17:25 97 H 16 141/76 H 11/01/24 17:15 95 H 20 143/79 H 11/01/24 17:05 98 H 16 128/71 11/01/24 16:55 95 H 14 147/76 H 11/01/24 16:45 92 H 14 125/72 11/01/24 16:35 90 12 123/78 11/01/24 16:25 89 20 133/73 11/01/24 16:15 83 24 110/75 11/01/24 16:05 36.2 C L 84 16 118/63 11/01/24 06:41 37.6 C H 93 H 18 151/87 H 10/31/24 20:03 10/31/24 20:00 36.5 C 95 H 16 129/73 BP Pulse Ox O2 Del Method O2 Flow Rate FiO2 11/01/24 18:30 95 50 11/01/24 18:15 117/47 L 95 BiPAP 50 11/01/24 18:05 108/63 92 Oxymask 8 11/01/24 17:55 102/55 L 90 Oxymask 12 11/01/24 17:45 109/54 L 88 L Oxymask 10 11/01/24 17:35 138/51 L 90 Oxymask 10 11/01/24 17:25 150/77 H 91 Oxymask 10 11/01/24 17:15 159/79 H 92 Oxymask 10 11/01/24 17:05 145/60 H 90 Oxymask 10 11/01/24 16:55 143/57 H 88 L Oxymask 6 11/01/24 16:45 130/73 94 Oxymask 6 11/01/24 16:35 124/64 96 Oxymask 12 11/01/24 16:25 144/68 H 96 Oxymask 12 11/01/24 16:15 102/65 92 Oxymask 12 11/01/24 16:05 98 Oxymask 12 11/01/24 06:41 93 Room Air 10/31/24 20:03 Room Air, CPAP 10/31/24 20:00 95 Room Air Pain Intensity Bilateral Hip: Pain Intensity: 0 Back: Pain Intensity: 4 Left Flank: Pain Intensity: 6 Transfer of Care Handoff Completed per policy Notes Mental Status: alert / awake / arousable and participated in evaluation Patient Amnestic to Procedure: Yes Nausea / Vomiting: adequately controlled Pain: adequately controlled Airway Patency, RR, SpO2: stable & adequate BP & HR: stable & adequate Hydration State: stable & adequate Anesthetic Complications: no major complications apparent and Pt Satisfied with anesthetic care Notes: Pt was sig eyelid edema post surgery. Pt no complaints of vision problems but should remain vigilant as he gets further from surgery. Pt difficult to control pain as he had increased oxygen requirement and had desaturations to high 80's with narcotic meds. Requested pt be transferred to more monitored unit and to remain on cont pulse ox. cxr done to ensure pulmonary edema not a factor in his oxygen sat. also ordered cpap as pt on this as outpt. after longer recovery in pacu pt seems to be improving and hospitalist service to assist with postop management.
[2024-11-01] MEDS: DEXAMETHASONE SOD INJ 4 MG/ML VIAL IV STA (19:33)
[2024-11-01] MEDS: LACTATED RINGER'S 1,000 ML IV SCH (19:45)
[2024-11-01] MEDS: KETOROLAC TROMETHAMINE 15 MG/ML VIAL IV SCH (19:46)
[2024-11-01 20:07] LABS: Basophils # (auto) 0.01 K/uL (0.00-0.20); Basophils % (auto) 0.1 %; Eosinophils # (auto) 0.04 K/uL (0.00-0.50); Eosinophils % (auto) 0.5 %; Hematocrit (blood only) 32.2 % (42.0-52.0); Hemoglobin 10.5 g/dl (14.0-18.0); Immature Granulocytes # (auto) 0.12 K/uL (0.01-0.20); Immature Granulocytes % (auto) 1.4 %; Lymphocytes # (auto) 0.59 K/uL (1.20-3.40); Lymphocytes % (auto) 6.7 %; Mean Corpuscular Hemoglobin 29.2 pg (25.0-34.0); Mean Corpuscular Hgb Conc 32.6 g/dL (32.0-36.0); Mean Corpuscular Volume 89.4 fL (80.0-100.0); Mean Platelet Volume 9.9 fL (9.4-12.4); Monocytes # (auto) 0.37 K/uL (0.11-0.59); Monocytes % (auto) 4.2 %; Neutrophils # (auto) 7.74 K/uL (1.40-6.50); Neutrophils % (auto) 87.1 %; Platelet Count 124 K/uL (130-400); RDW Coefficient of Variation 13.5 % (11.5-14.5); RDW Standard Deviation 44.4 fL (36.4-46.3); White Blood Count 8.87 K/ul (4.8-10.8)
[2024-11-01 20:21] LABS: BUN Creatinine Ratio 30.3 (10-20); Calcium 7.5 mg/dl (8.6-10.3); Creatinine Clr Calc Pharmacy 76.2 ml/min; Potassium 4.3 mmol/L (3.5-5.1)
--- NOTE | 2024-11-01 20:37 | XRay Report ---
EXAM: XR chest 1V portable CLINICAL HISTORY: hypoxia TECHNIQUE: An X-ray image of the chest is obtained in AP projection. COMPARISON: 10/05/2024. FINDINGS: Pulmonary Parenchyma: Blunting of the left costophrenic angle, likely by mild effusion. Reduced left lung volume. Veiling of bilateral lower lung zones. Otherwise, Lungs are clear bilaterally. No evidence of consolidation, collapse, or focal opacities. No pulmonary nodules are identified. Heart and Mediastinum: Heart size and shape are normal. No mediastinal widening or masses. No hilar or mediastinal lymphadenopathy. Prominent aortic knuckle with unfolded aorta. Bony Thorax: The bony thorax appears intact without fractures or deformities. Thoracolumbar internal fixation. Soft Tissues: Soft tissues overlying the chest wall are unremarkable. IMPRESSION: 1. Mild left pleural effusion. 2. Bilateral areas of veiling, likely to be of inflammatory nature, for clinical correlation. 3. NEwly developed findings. Electronically signed by Aldo Verde 11-01-2024 8:36 PM
[2024-11-02] MEDS: VANCOMYCIN HCL 1,250 MG in SODIUM CHLORIDE 0.9% 250 ML IV SCH (02:21)
[2024-11-02 06:19] LABS: Basophils # (auto) 0.01 K/uL (0.00-0.20); Basophils % (auto) 0.1 %; Hematocrit (blood only) 31.8 % (42.0-52.0); Hemoglobin 10.4 g/dl (14.0-18.0); Lymphocytes # (auto) 0.74 K/uL (1.20-3.40); Lymphocytes % (auto) 7.5 %; Mean Corpuscular Hemoglobin 29.1 pg (25.0-34.0); Mean Corpuscular Hgb Conc 32.7 g/dL (32.0-36.0); Mean Corpuscular Volume 89.1 fL (80.0-100.0); Mean Platelet Volume 10.3 fL (9.4-12.4); Monocytes # (auto) 0.32 K/uL (0.11-0.59); Monocytes % (auto) 3.2 %; Neutrophils # (auto) 8.71 K/uL (1.40-6.50); Neutrophils % (auto) 88.2 %; Platelet Count 133 K/uL (130-400); RDW Coefficient of Variation 13.3 % (11.5-14.5); RDW Standard Deviation 43.6 fL (36.4-46.3); Red Blood Count 3.57 M/uL (4.70-6.10); White Blood Count 9.88 K/ul (4.8-10.8)
[2024-11-02 06:49] LABS: BUN Creatinine Ratio 29.6 (10-20); Calcium 8.2 mg/dl (8.6-10.3); Creatinine Clr Calc Pharmacy 83.7 ml/min; Potassium 4.8 mmol/L (3.5-5.1)
[2024-11-02] MEDS ORDERED: GLUCAGON FOR INJ 1 MG VIAL SQ PRN (08:49)
[2024-11-02] MEDS ORDERED: GLUCOSE 10 TAB/TUBE PO PRN (08:49)
[2024-11-02] MEDS ORDERED: GLUCOSE 40% GEL 15 GM TUBE PO PRN (08:49)
[2024-11-02] MEDS ORDERED: CARBOHYDRATES FOR HYPOGLYCEMIA PO PRN (08:49)
[2024-11-02] MEDS ORDERED: DEXTROSE 50% 50 ML SYRINGE IV PRN (08:49)
--- NOTE | 2024-11-02 09:30 | XRay Report ---
XR scoliosis AP/lat 2V CLINICAL HISTORY: post-op spine surgery COMPARISON STUDY: Lumbar spine radiographs October 30, 2024. Fluoroscopic images of the lumbar spine CT November 01, 2024. FINDINGS: Surgical drain and skin priscilla are noted. There are no unexpected radiopaque foreign alexi s. There is slight leftward curvature of the lumbar spine. A bilateral pedicle screw fusion extending from T10 through S1 is noted with interconnecting rods. Hardware is intact. L2-L3, L3-L4, L4-L5 and L5-S1 discectomies with interbody spacer placement are noted. No fractures are identified. Bowel gas pattern is within normal limits. IMPRESSION: 1. Postoperative findings consistent with multilevel decompression and fusion, as described above. 2. Hardware intact. 3. No unexpected radiopaque foreign bodies. 4. Minimal leftward curvature of the lumbar spine. ACT 112: Negative or not required by law. Electronically signed by: Ludwin Raza M.D. 11/02/2024 9:28 AM
--- NOTE | 2024-11-02 10:12 | Surgery Progress Note ---
Date of Service November 02, 2024 Assessment & Plan (1) Status post lumbar spinal fusion: Plan: I am pleased with his progress Can slowly advance diet as he tolerates it Increase activity per Spine Surgery Will come back later today and change his abdominal dressings Admission and Anticipated Discharge Date Admission Date: October 29, 2024 Subjective Patient seen. All things considered he is feeling reasonably well. His pain is being managed. He has no nausea or vomiting Physical Exam Physical Exam: Alert. No acute distress His 2 abdominal incisions both look good. Results & Data Vital Signs (Past 12 Hours) Vital Signs Temp Pulse Pulse Resp BP BP Pulse Ox 11/02/24 09:23 36.6 C 101 H 20 140/81 97 11/02/24 06:37 81 18 95 11/02/24 02:44 36.8 C 77 18 114/65 98 11/02/24 02:25 77 22 99 11/02/24 01:02 80 20 100 11/01/24 22:16 37.6 C H 91 H 20 106/70 97 O2 Del Method O2 Flow Rate FiO2 11/02/24 09:23 Nasal Cannula 2 11/02/24 06:37 Oxymask 4 11/02/24 02:44 CPAP 11/02/24 02:25 30 11/02/24 01:02 40 11/01/24 22:16 Oxymask 6 PG Care Time/CCT Total # of Minutes Spent Total Time Spent with Patient: Total time spent is greater than 50% in coordination of care (as documented) at patient's floor/unit and/or counseling patient: Coding Level of Care Code 95423 Post Operative Follow-Up Diagnoses Status post lumbar spinal fusion Z98.1
--- NOTE | 2024-11-02 10:39 | Hospitalist Progress Note ---
Date of Service November 02, 2024 Assessment & Plan (1) Status post lumbar spinal fusion: Plan: Postoperative day 1.. Management by primary service. (2) Acute respiratory failure with hypoxia: Plan: Oxygen per nasal cannula to maintain saturation greater than 90%. Wean off as tolerated. The patient has been instructed on proper use of incentive spirometry. (3) Type 2 diabetes mellitus: Plan: Diabetic diet. Sliding scale coverage. He manages his diabetes at home with diet alone (4) Essential hypertension: Plan: Stable. Continue current medical management Plan Eventual discharge to home within the next day or 2 per primary service Admission and Anticipated Discharge Date Admission Date: October 29, 2024 Subjective Alert and oriented. No distress. is at the bedside. He remains on supplemental oxygen per nasal cannula. He has been instructed on proper use of incentive spirometry. I suspect some of his hypoxia is due to postoperative atelectasis and he does have a left pleural effusion seen on chest x-ray done November 01. ADA diet has been ordered along with sliding scale coverage to prevent hyperglycemia. His diabetes is managed with diet alone at home. Will repeat chest x-ray again tomorrow, October night Review of Systems 2 Review of Systems: Constitutionalno fever or chills ENTno blurred vision, no double vision, no epistaxis, no sore throat Respiratoryno cough, no wheezing, no shortness of breath Cardiacno palpitations, no chest pain, no syncope Bernadine nausea, vomiting, diarrhea, melena, hematochezia GUno urinary retention, no urinary incontinence, no dysuria, no hematuria Musculoskeletalpostoperative lumbar discomfort as expected. Skinno bruising, no rashes, no pruritus Neurono isolated weakness, no paresthesia, no weakness Psychno depression, no anxiety Physical Exam 2 Physical Exam: General-alert and oriented x3, no fever, no chills HEENT-head atraumatic and normocephalic, pupils equal and reactive to light, extraocular muscles intact Neck-no lymphadenopathy or thyromegaly, trachea midline Chest-clear to auscultation. No rales, wheezing or rhonchi Cardiac-regular rate and rhythm, normal S1 and S2 Abdomen-normal bowel sounds, no hepatosplenomegaly Extremities-no cyanosis, clubbing, or edema Neuro-cranial nerves II through XII intact, motor and sensory function within normal limits, strength symmetrical, no focal deficits Psych-normal affect, normal mood Results & Data Results & Data Vital Signs (Past 12 Hours) Vital Signs Temp Pulse Pulse Resp BP BP Pulse Ox 11/02/24 10:19 76 11/02/24 10:09 11/02/24 09:23 36.6 C 101 H 20 140/81 97 11/02/24 06:37 81 18 95 11/02/24 02:44 36.8 C 77 18 114/65 98 11/02/24 02:25 77 22 99 11/02/24 01:02 80 20 100 O2 Del Method O2 Flow Rate FiO2 11/02/24 10:19 11/02/24 10:09 Nasal Cannula 2 11/02/24 09:23 Nasal Cannula 2 11/02/24 06:37 Oxymask 4 11/02/24 02:44 CPAP 11/02/24 02:25 30 11/02/24 01:02 40 Laboratory Results 11/02/24 05:46 11/02/24 05:46 PG Care Time/CCT Total # of Minutes Spent Total Time Spent with Patient: Total time spent is greater than 50% in coordination of care (as documented) at patient's floor/unit and/or counseling patient: Coding Level of Care Code 21612 SUB INP/OBS CARE 3/50MIN Diagnoses Status post lumbar spinal fusion Z98.1 Acute respiratory failure with hypoxia J96.01 Type 2 diabetes mellitus E11.9 Essential hypertension I10
[2024-11-02] MEDS: INSULIN ASPART PER UNIT CHARGE SC SCH (11:55)
--- NOTE | 2024-11-02 15:11 | Orthopedic Progress Note ---
Date of Service November 02, 2024 Subjective Patient seen and examined, notes some incisional pain but no significant neural compressive symptoms in lower extremities. Motor intact in lower extremities with 5/5 ankle plantarflexion dorsiflexion, EHL. Hgb: 10.4 Impression: Right postop day 1 from T10 to pelvis fusion, postop day 4 from L5- S1 anterior interbody fusion and lateral L2-3 cage placement. Stable postop course. Diet advanced as per general surgery, mobilize with PT. Review of Systems All systems reviewed & are unremarkable except as noted in HPI & below. Physical Exam . Results & Data Results & Data Laboratory Results . Diagnostic Findings . PG Care Time/CCT Total # of Minutes Spent Total Time Spent with Patient: Total time spent is greater than 50% in coordination of care (as documented) at patient's floor/unit and/or counseling patient: Coding Level of Care Code 46237 Post Operative Follow-Up
[2024-11-03 06:22] LABS: Basophils # (auto) 0.01 K/uL (0.00-0.20); Basophils % (auto) 0.1 %; Eosinophils # (auto) 0.03 K/uL (0.00-0.50); Eosinophils % (auto) 0.3 %; Hematocrit (blood only) 27.9 % (42.0-52.0); Hemoglobin 9.4 g/dl (14.0-18.0); Immature Granulocytes # (auto) 0.08 K/uL (0.01-0.20); Immature Granulocytes % (auto) 0.9 %; Lymphocytes # (auto) 1.17 K/uL (1.20-3.40); Lymphocytes % (auto) 13.4 %; Mean Corpuscular Hemoglobin 29.6 pg (25.0-34.0); Mean Corpuscular Hgb Conc 33.7 g/dL (32.0-36.0); Mean Corpuscular Volume 87.7 fL (80.0-100.0); Mean Platelet Volume 10.1 fL (9.4-12.4); Monocytes # (auto) 0.58 K/uL (0.11-0.59); Monocytes % (auto) 6.6 %; Neutrophils # (auto) 6.88 K/uL (1.40-6.50); Neutrophils % (auto) 78.7 %; Platelet Count 157 K/uL (130-400); RDW Coefficient of Variation 13.2 % (11.5-14.5); RDW Standard Deviation 42.3 fL (36.4-46.3); Red Blood Count 3.18 M/uL (4.70-6.10); White Blood Count 8.75 K/ul (4.8-10.8)
[2024-11-03 07:08] LABS: Potassium 3.7 mmol/L (3.5-5.1)
[2024-11-03 07:09] LABS: BUN Creatinine Ratio 32.1 (10-20); Calcium 8.2 mg/dl (8.6-10.3); Creatinine Clr Calc Pharmacy 86.9 ml/min
--- NOTE | 2024-11-03 07:37 | Orthopedic Progress Note ---
Date of Service November 03, 2024 Assessment & Plan (1) Status post lumbar spinal fusion: WBAT, AAT mobilize with PT scds ok for ortho floor monitor drain, will check at 3pm - if less than 50 cc will discontinue and change dressing prn oxycodone, tizanidine hopefully home tomorrow Subjective s/p [id number] fusion, pain controlled, voiding, tolerating PO. Working with PT Review of Systems All systems reviewed & are unremarkable except as noted in HPI & below. Physical Exam neuro intact L2-S1 myotomes and dermatomes drain 90 cc last 13 hours Results & Data Results & Data Laboratory Results . Diagnostic Findings . PG Care Time/CCT Total # of Minutes Spent Total Time Spent with Patient: Total time spent is greater than 50% in coordination of care (as documented) at patient's floor/unit and/or counseling patient: Coding Level of Care Code 00930 Post Operative Follow-Up Diagnoses Status post lumbar spinal fusion Z98.1
--- NOTE | 2024-11-03 07:50 | XRay Report ---
EXAM: XR chest 1V portable CLINICAL HISTORY: hypoxia, atelectasis TECHNIQUE: Radiograph of chest was acquired. COMPARISON: 11/01/2024 17:03:31 STRATEGY LEAD FINDINGS: Subsegmental atelectatic band in left lower zone. Rest of the lungs are clear and well-expanded with no pulmonary infiltrate. Mild blunting of left costophrenic angle likely due to pleural thickening. The cardiomediastinal silhouette is within normal limits. No acute osseous abnormality. IMPRESSION: 1. No acute cardiopulmonary disease. 2. Subsegmental atelectatic band in left lower zone. 3. Mild blunting of left costophrenic angle likely due to pleural thickening. (Stable) No new finding. Electronically signed by Watson Mcdaniels 11-03-2024 07:50 AM
--- NOTE | 2024-11-03 08:43 | Surgery Progress Note ---
Date of Service November 03, 2024 Assessment & Plan (1) Status post lumbar spinal fusion: Plan: Patient appears to be doing well abdominal incisions x 2 c/d/i with dermabond, may keep open to air or change daily w/ dry gauze/medipore for comfort tolerating diet. + flatus continue to encourage OOB/ambulation as tolerates Admission and Anticipated Discharge Date Admission Date: October 29, 2024 Subjective Patient feeling okay. Tolerating a diet. No nausea/vomiting. + flatus. Physical Exam Physical Exam: awake/alert, sitting up in chair eating breakfast Gastrointestinal (Abdomen): Inspection/Auscultation: + abdominal surgical incision (abdominal incisions c/d/i x 2 with dermabond;) Results & Data Vital Signs (Past 12 Hours) Vital Signs Temp Pulse Pulse Pulse Resp BP Pulse Ox 11/03/24 07:59 99.1 F 106 H 16 154/98 H 98 11/03/24 02:58 98.4 F 88 17 151/71 H 98 11/02/24 23:00 89 11/02/24 22:17 98.1 F 93 H 18 158/88 H 94 O2 Del Method 11/03/24 07:59 Room Air 11/03/24 02:58 CPAP 11/02/24 23:00 11/02/24 22:17 CPAP PG Care Time/CCT Total # of Minutes Spent Total Time Spent with Patient: Total time spent is greater than 50% in coordination of care (as documented) at patient's floor/unit and/or counseling patient: Coding Level of Care Code 74340 Post Operative Follow-Up Diagnoses Status post lumbar spinal fusion Z98.1
--- NOTE | 2024-11-03 10:40 | Hospitalist Progress Note ---
Date of Service November 03, 2024 Assessment & Plan (1) Status post lumbar spinal fusion: Plan: S/p posterior spinal fusion/facetectomy due to spondylolisthesis/lumbar disc disease/lumbar spinal stenosis/radiculopathy Activity, pain management, DVT prophylaxis per primary team Patient ambulating well with PT 11/03 (2) Acute respiratory failure with hypoxia: Plan: Suspect postoperative atelectatic Has been weaned to room air. Sats greater than 94% on room air without ongoing shortness of breath Continue incentive spirometer (3) Type 2 diabetes mellitus: Plan: Continue sliding scale coverage Diet controlled at home Adequate BSG control 11/03 (4) Essential hypertension: Plan: Stable. Continue current medical management (5) Tachycardia: Plan: Was reported to have a heart rate of 163 on chart review, EKG was ordered. On discussion with nursing staff this was suspected to be inaccurate. On recheck rate 103 with ambulation EKG : Sinus tachycardia. No territorial ST/T wave changes. QTc 434, [place] 166 Improved on recheck. suspect reactive with some volume contraction and pain. No pleuritic pain. No hypoxia. No evidence of DVT on exam. Has some slight mottling of lower extremities and mucous membranes are tacky. Has been having some difficulty keeping up with fluid intake. 500 cc maintenance fluid given for volume optimization. Admission and Anticipated Discharge Date Admission Date: October 29, 2024 Subjective No overnight events. Feels well, walking with physical therapy at time of visit. Has been passing gas. NEO drain is in place with about 50 cc of sanguinous output. No shortness of breath. Hypoxia has resolved and on room air. On afternoon reassessment is doing well. NEO drain has been removed. Surgical dressing C/D/I Physical Exam Physical Exam: General: A&Ox3. NAD. Cooperative. HEENT: Atraumatic, normocephalic. Vision and hearing grossly intact. Mucous membranes slightly tacky Pulm: CTAB A&P. Symmetrical chest rise. No increased work of breathing. No respiratory distress. Cardiac: Regular, mildly tachycardic. Radial pulses intact and symmetrical. NEO drain with scant amount of sanguinous material. On afternoon reassessment NEO drain has been removed Extremities: Warm, dry. Sensation and strength grossly intact. Very slight mottling of the lower extremities although cap refill less than 2 seconds in the ankles bilaterally. PT pulses intact to palpation bilaterally Results & Data Results & Data Vital Signs (Past 12 Hours) Vital Signs Temp Pulse Pulse Pulse Resp BP Pulse Ox 11/03/24 10:34 36.6 C 162 H 20 110/68 94 11/03/24 08:00 89 11/03/24 08:00 11/03/24 07:59 37.3 C 106 H 16 154/98 H 98 11/03/24 02:58 36.9 C 88 17 151/71 H 98 11/02/24 23:00 89 O2 Del Method 11/03/24 10:34 Room Air 11/03/24 08:00 11/03/24 08:00 Room Air 11/03/24 07:59 Room Air 11/03/24 02:58 CPAP 11/02/24 23:00 PG Care Time/CCT Total # of Minutes Spent Total Time Spent with Patient: Total time spent is greater than 50% in coordination of care (as documented) at patient's floor/unit and/or counseling patient: Coding Level of Care Code 18005 SUB INP/OBS CARE 3/50MIN Diagnoses Status post lumbar spinal fusion Z98.1 Acute respiratory failure with hypoxia J96.01 Type 2 diabetes mellitus E11.9 Essential hypertension I10 Tachycardia R00.0
[2024-11-03] MEDS: LACTATED RINGER'S 500 ML IV SCH (18:26)
--- NOTE | 2024-11-04 08:26 | Surgery Progress Note ---
Date of Service November 04, 2024 Assessment & Plan (1) Status post lumbar spinal fusion: Plan: all things considered he is doing well. d/c planning. f/u with me in 2-3 weeks Admission and Anticipated Discharge Date Admission Date: October 29, 2024 Subjective pt seen. feels he is doing ok. expected pain. fatigued. rosette diet. no n/v. Physical Exam Physical Exam: alert. nad abd: soft. nd. wounds look good Results & Data Vital Signs (Past 12 Hours) Vital Signs Temp Pulse Resp BP Pulse Ox O2 Del Method 11/04/24 07:02 37.3 C 91 H 18 131/70 94 Room Air 11/04/24 00:15 36.8 C 93 H 18 150/70 H 92 Room Air 11/03/24 23:30 Room Air PG Care Time/CCT Total # of Minutes Spent Total Time Spent with Patient: Total time spent is greater than 50% in coordination of care (as documented) at patient's floor/unit and/or counseling patient: Coding Level of Care Code 88508 Post Operative Follow-Up Diagnoses Status post lumbar spinal fusion Z98.1
--- NOTE | 2024-11-04 08:37 | Orthopedic Progress Note ---
Date of Service November 04, 2024 Assessment & Plan (1) Status post lumbar spinal fusion: Patient is postop day 3 from a part 2 out of 2 lumbar decompression and fusion. -Continue to be weightbearing as tolerated and ambulate with assistance. -Pain control as per regimen: prn oxy and tizanidine - dressing changes at home as needed -can be discharged today as discussed with Dr. Bella Subjective STAGE 1: 10/29/2024: s/p L5-S1 Oblique Lumbar Interbody Fusion, L2-L3 Lateral Interbody Fusion, L5-S1 Anterior Plate, Spinal Cord Monitoring Surgeon: Jv Bella MD s Anterior/Oblique Approach to L1-L3 as well as L5-S1 Disc Spaces Surgeon: Chevy Pena, DO, Jv Bella STAGE 2: 11/01/2024: s/p [id number] posterior lumbar fusion Patient is postop day 3 from stage 2 out of [address] Bella with access surgeon Dr. Pena. He is doing well. He is mobilizing well. He states that he is ready to go home. His drains were removed yesterday by Dr. Bella. He does not have any questions or concerns and states that his pain is under control. Review of Systems All systems reviewed & are unremarkable except as noted in HPI & below. Physical Exam General: Alert and oriented. In no acute distress. Lumbar spine: Dressing check satisfactory. No drainage/saturation of the dressing. He is neurovascularly intact with all myotomes and dermatomes. He is mobilizing well. Results & Data Results & Data Laboratory Results . Diagnostic Findings . PG Care Time/CCT Total # of Minutes Spent Total Time Spent with Patient: Total time spent is greater than 50% in coordination of care (as documented) at patient's floor/unit and/or counseling patient: Coding Level of Care Code 90348 Post Operative Follow-Up Diagnoses Status post lumbar spinal fusion Z98.1
--- NOTE | 2024-11-04 08:41 | Discharge Summary ---
Date of Service November 04, 2024 Admission HPI (Per Admitting) Patient is a pleasant 79-year-old gentleman here today for follow-up of ongoing low back pain, radicular symptoms down the bilateral lower extremities. Patient does report radiating pain consistent with L1 radiculopathy into the groin, also has pain down the lateral aspect of his leg consistent with L5 radiculopathy. He has a history of prior instrumented fusion at L3-4 and L4-5 by a different surgeon back in 2013. He has had intermittent back pain and trialed pain management with epidural injections as well as medications over the years however recently the symptoms have stopped improving with epidural injection. He has some mild weakness on the left consistent with L5 radiculopathy. MRI was obtained which demonstrated severe stenosis at multiple levels above his instrumentation. Admission Exam (Per Admitting) PE: GENERAL: Speech and cognition is intact. Mood and affect is appropriate. Does not appear in acute distress. HEAD: Normocephalic; atraumatic. NECK: Trachea is midline. CHEST: Regular chest respiration and excursion. EXTREMITIES: No TTP. Distal sensation and pulses intact bilaterally. BACK: Diminished ROM. Pain is worsened with facet load bearing. Pain is worsened with spinal extension. + lumbosacral tenderness. Inspection/palpation demonstrates loss of lumbar lordotic curvature. Midline lumbar cicatrix is noted, which appears well-healed and without evidence of erythema, drainage, or abnormal warmth. NEURO: CN II-XII grossly intact with no focal deficits noted. Leaning forward gait. Awake, alert, and oriented x 3. Sensation intact to light touch of the bilateral L2-S1 dermatomes. Patellar Reflex R 2+ L trace Achilles Reflex R trace L trace Negative clonus bilaterally SKIN: No lesions, erythema, or rashes noted. LOWER EXTREMITIES: Negative straight leg raise bilaterally. R Hip flexion 5/5; hip extension 4/5; knee extension 4+/5; knee flexion 4/5; ankle dorsiflexion 5/5; ankle plantar flexion 5/5; EHL 5/5 L Hip flexion 5/5; hip extension 4/5; knee extension 4+/5; knee flexion 4/5; ankle dorsiflexion 4+/5; ankle plantar flexion 5/5; EHL 4+/5 Principal Diagnosis Same as "Discharge Diagnosis" noted below under Discharge Instructions. Discharge Exam General: Alert and oriented. In no acute distress. Lumbar spine: Dressing check satisfactory. No drainage/saturation of the dressing. He is neurovascularly intact with all myotomes and dermatomes. He is mobilizing well. Discharge Data Consultations 11/01/24 19:31 Consult Hospitalist Routine Procedures Performed Operation Date: 11/01/24 07:30 Actual Procedures p T10 Through Pelvis Instrumental Fusion, L1,L2 Laminectomies with CT Navigation, Spinal Cord Monitoring(Not Applicable) - Jv Bella MD s L3-L5 Pedicle Screws Removal ,(Not Applicable) - Jv Bella MD Ordered Studies 10/29/24 [place] lumbar spine 2-3V Routine 10/31/24 13:51 US venous duplex leg [US venous doppler LE LT] Stat 11/01/24 06:30 CT lumbar spine wo con Routine FL lumbar spine 2-3V Routine Hospital Course (1) Status post lumbar spinal fusion: Patient is postop day 3 from a part 2 out of 2 lumbar decompression and fusion. -Continue to be weightbearing as tolerated and ambulate with assistance. -Pain control as per regimen: prn oxy and tizanidine - dressing changes at home as needed -can be discharged today as discussed with Dr. Bella PG Care Time/CCT Total # of Minutes Spent Total Time Spent with Patient: Total time spent is greater than 50% in coordination of care (as documented) at patient's floor/unit and/or counseling patient: Discharge Plan Discharge Items Patient Disposition: Home - Self-Care Reason For Visit: Lumbar Radiculopathy, Lumbosacral Facet Joint Synd Discharge Diagnosis: S/P Lumbar Fusion Acute blood loss anemia s/p transfusion Lumar Radiculopathy Condition on Discharge: Good Activity: Per Instructions section Activity Comment: Follow instruction Sheet from Office Lifting: No more than 10 pounds Bathing Comment: Follow instructon shet from clinic Weightbearing: Full weightbearing Non-emergency contact: Surgeon Call non-emergency contact if: your pain is worsening, your temperature is above 101, your wound has increased redness and your wound has increased drainage Follow-up/Referrals: Shady Saleh MD [Primary Care Provider] - Diet: Carb Consistent or DM2 Addtl Attending Provider Instructions: Follow post op instruction sheet from clinic Pending Studies at Discharge: No Stand-Alone Forms: [facility], Pain - Opioid Pain Management, Smoking Cessation Medications and DC Order Prescriptions: New tizanidine 4 mg Tablet 4 mg PO Q8H PRN (Reason: muscle spasticity) Qty: 90 1RF oxycodone 5 mg Tablet 5 mg PO Q4H PRN (Reason: pain) Qty: 90 0RF acetaminophen [Tylenol Extra Strength] 500 mg Tablet 1,000 mg PO Q8H Qty: 30 0RF polyethylene glycol 3350 [Miralax] 17 gram/dose powder 17 g PO DAILY 10 Days Qty: 170 0RF Continued omeprazole 20 mg Tablet,Delayed Release (Dr/Ec) 20 mg PO QAM Qty: 0 lisinopril 10 mg tablet 10 mg PO HS Qty: 90 3RF albuterol sulfate 90 mcg/actuation HFA aerosol inhaler 2 puff inhalation QID PRN (Reason: shortness of breath or wheezing) Qty: 6.7 0RF venlafaxine 75 mg capsule,extended release 24hr 75 mg PO QAM Qty: 90 3RF loratadine-pseudoephedrine 10-240 mg tablet extended release 24 hr 1 tab PO UD PRN (Reason: ALLERGY RELIEF) Qty: 90 Patient Comments: as directed aspirin [Aspirin Low-Strength] 81 mg Tablet,Delayed Release (Dr/Ec) 81 mg PO QAM pramipexole 1 mg tablet 1 - 2 mg PO UD Rx Instructions: 1 mg orally; Take one tablet at noon, then take two tablets in the evening; Discontinued tramadol 50 mg tablet 50 - 100 mg PO UD PRN (Reason: pain) Rx Instructions: Take 50 mg in the am and 100 mg in pm Discharge Orders: Discharge Order (Routine); Ordered 11/04/24 Ordered By: Terri Alaniz Admission Data Admit Date/Time: 10/29/24 14:05 Attending Provider: Jv Bella Admit Provider: Jv Bella Primary Care Provider: Shady Saleh Other Providers: Osmel Casas
--- NOTE | 2024-11-04 12:01 | Hospitalist Progress Note ---
Date of Service November 04, 2024 Assessment & Plan (1) Status post lumbar spinal fusion: Plan: S/p posterior spinal fusion/facetectomy due to spondylolisthesis/lumbar disc disease/lumbar spinal stenosis/radiculopathy Activity, pain management, DVT prophylaxis per primary team Patient requested prescription for home health/home PT. Provided and discussed with case management prior to discharge. Okay for discharge from medical standpoint. (2) Acute respiratory failure with hypoxia: Plan: Resolved (3) Type 2 diabetes mellitus: Plan: Resume diet control at home (4) Essential hypertension: Plan: Stable. Continue current medical management (5) Tachycardia: Plan: Was reported to have a heart rate of 163 on chart review, EKG was ordered. On discussion with nursing staff this was suspected to be inaccurate. On recheck rate 103 with ambulation EKG : Sinus tachycardia. No territorial ST/T wave changes. QTc 434, [place] 166 Improved. Suspect reactive with some volume contraction, heart rate low 8090s prior to discharge Admission and Anticipated Discharge Date Admission Date: October 29, 2024 Subjective Seen at bedside prior to discharge. Feels well. No shortness of breath. No chest pain. Ambulating with a walker appropriately. Would like a referral for home health/home PT. Otherwise no acute concerns. Physical Exam Physical Exam: General: A&Ox3. NAD. Cooperative. HEENT: Atraumatic, normocephalic. Vision and hearing grossly intact. Mucous membranes slightly tacky Pulm: Symmetrical chest rise. No increased work of breathing. No respiratory di stress. Cardiac: Regular rate and rhythm. Radial pulses intact and symmetrical. Extremities: Warm, dry. Sensation and strength grossly intact. Mottling improved compared to prior. Results & Data Results & Data Vital Signs (Past 12 Hours) Vital Signs Temp Pulse Resp BP BP Pulse Ox O2 Del Method 11/04/24 11:35 131/70 140/81 11/04/24 08:48 Room Air 11/04/24 07:02 37.3 C 91 H 18 131/70 94 Room Air 11/04/24 00:15 36.8 C 93 H 18 150/70 H 92 Room Air PG Care Time/CCT Total # of Minutes Spent Total Time Spent with Patient: Total time spent is greater than 50% in coordination of care (as documented) at patient's floor/unit and/or counseling patient: Coding Level of Care Code 38437 SUB INP/OBS CARE 235MIN Diagnoses Status post lumbar spinal fusion Z98.1 Acute respiratory failure with hypoxia J96.01 Type 2 diabetes mellitus E11.9 Essential hypertension I10 Tachycardia R00.0
[2024-11-04] MEDS: LACTATED RINGER'S 500 ML IV ONE (12:14)
[2024-11-04] MEDS: ONDANSETRON INJ 2 MG/ML 2 ML VIAL IV PRN (12:21)
--- NOTE | 2024-11-04 15:44 | XRay Report ---
XR chest 2V PA/lateral CLINICAL HISTORY: hypoxia COMPARISON STUDY: 11/03/2024 and 10/05/2024 FINDINGS: 2 views of the chest are unchanged. There is no acute cardiopulmonary process identified. M ild cardiomegaly and pulmonary vascular congestion are present. There is no definite pleural effusion . There is no focal airspace opacity. Ectatic brachiocephalic vessels, some superior mediastinal wide jony. The patient has had an interval of the rectal lumbar multilevel fusion. There are mild compress ion to 4 mm above the level of fusion that are unchanged since the prior examination. No new compress ion fracture is identified. IMPRESSION: No significant interval change. No acute process identified radiographically. ACT 112: Negative or not required by law. Electronically signed by: Idania Scruggs M.D. 11/04/2024 3:43 PM
[2024-11-04] MEDS: SOD PHOSPHATE/SOD BIPHOSPHATE ENEMA 132 ML BTL PR PRN (17:28)
[2024-11-04 20:07] VITALS: O2SAT 94
[2024-11-05 07:21] VITALS: BP 128/67; PULSE 106; RESP 16; TEMP 99
--- NOTE | 2024-11-05 08:30 | Orthopedic Progress Note ---
Date of Service November 05, 2024 Assessment & Plan (1) Status post lumbar spinal fusion: Status post lumbar spinal fusion: Patient is postop day 4 from a part 2 out of 2 lumbar decompression and fusion. -Continue to be weightbearing as tolerated and ambulate with assistance. -Pain control as per regimen: prn oxy and tizanidine - dressing changes at home as needed -can be discharged today as discussed with Dr. Bella. Discharge was cancelled yesterday due to syncopal episode. Subjective .79 year old patient POD 4 from second surgery for lumbar fusion. Pain reasonably controlled. He was supposed to be discharged yesterday but order was cancelled due to syncopal episode. He said this occurred shortly after receiving muscle relaxer. No further events. He does have some left hip lateral pain and some pain in both lower legs particularly when getting out of bed. Review of Systems All systems reviewed & are unremarkable except as noted in HPI & below. Physical Exam .alert and oriented. NAD. VSS, heart rate was 106 this am. Dressing on back: clean, dry, intact Able to dorsiflex and plantarflex, strength 5/5, sensation intact to touch. No significant edema, no calf tenderness. Results & Data Results & Data Laboratory Results . Diagnostic Findings . PG Care Time/CCT Total # of Minutes Spent Total Time Spent with Patient: Total time spent is greater than 50% in coordination of care (as documented) at patient's floor/unit and/or counseling patient: Coding Level of Care Code 90015 Post Operative Follow-Up Diagnoses Status post lumbar spinal fusion Z98.1
--- NOTE | 2024-11-05 10:12 | Hospitalist Progress Note ---
Date of Service November 05, 2024 Assessment & Plan (1) Status post lumbar spinal fusion: Plan: S/p posterior spinal fusion/facetectomy due to spondylolisthesis/lumbar disc disease/lumbar spinal stenosis/radiculopathy Activity, pain management, DVT prophylaxis per primary team Discharge yesterday held for presyncopal episode. Doing well and improved on bedside recheck x 2. Doppler for DVT negative. Breathing normally on room air. Okay for discharge. No NSAIDs, discussed with patient and his . Will be provided description of gabapentin instead and may continue Tylenol/oxycodone as prescribed by primary team. Presyncopal episode, suspect medication induced Occurred shortly after taking tizanidine. Patient also with sensitivity to Flexeril in the past with hallucinations. Differential includes vasovagal as he felt like he needed to have a bowel movement and go to the bathroom. Was given supportive fluids laid in bed episode gradually passed. Blood pressure normalized. Appears euvolemic 11/05/2024 Have some leg discomfort for which a Dopplers pending. Patient does not have ongoing shortness of breath difficulty breathing or hypoxia. Intermittent tachycardia resolved with fluid. He is normotensive. Lower suspicion for PE. Doppler subsequently negative (2) Acute respiratory failure with hypoxia: Plan: Resolved (3) Type 2 diabetes mellitus: Plan: Resume diet control at home (4) Essential hypertension: Plan: Stable. Continue current medical management (5) Tachycardia: Plan: Was reported to have a heart rate of 163 on chart review, EKG was ordered. On discussion with nursing staff this was suspected to be inaccurate. On recheck rate 103 with ambulation EKG : Sinus tachycardia. No territorial ST/T wave changes. QTc 434, MD 166 Improved Admission and Anticipated Discharge Date Admission Date: October 29, 2024 Subjective Doing well today. All symptoms have resolved except for some spasm-like pain when attempting go from a sitting to standing pain in his left hip. Discharge yesterday was canceled due to a presyncopal episode after receiving tizanidine. Symptoms that this has completely resolved. He notes he also had hallucinations on Flexeril in the past. Differential included vasovagal although suspect sensitivity to muscle relaxants given history and timing shortly after this medication was given. Normotensive today. Appears well at the bedside. Patient and were concerned about whether or not patient could use NSAIDs. Did discuss this with primary team, NSAID use not recommended at this time. Pending a Doppler to evaluate for VTE due to some leg discomfort. If this is normal then patient will be okay for discharge. If VTE is noted then we will need to have therapeutic dose anticoagulation Physical Exam Physical Exam: General: A&Ox3. NAD. Cooperative. HEENT: Atraumatic, normocephalic. Vision and hearing grossly intact. Mucous membranes slightly tacky Pulm: Symmetrical chest rise. No increased work of breathing. No respiratory distress. Cardiac: Regular rate and rhythm. Radial pulses intact and symmetrical. Extremities: Warm, dry. Sensation and strength grossly intact. No mottling today. No calf asymmetry Results & Data Results & Data Vital Signs (Past 12 Hours) Vital Signs Temp Pulse Resp BP Pulse Ox O2 Del Method 11/05/24 07:18 37.2 C 106 H 16 128/67 94 Room Air PG Care Time/CCT Total # of Minutes Spent Total Time Spent with Patient: Total time spent is greater than 50% in coordination of care (as documented) at patient's floor/unit and/or counseling patient: Coding Level of Care Code 00468 SUB INP/OBS CARE 3/50MIN Diagnoses Status post lumbar spinal fusion Z98.1 Acute respiratory failure with hypoxia J96.01 Type 2 diabetes mellitus E11.9 Essential hypertension I10 Tachycardia R00.0
--- NOTE | 2024-11-05 11:49 | Ultrasound Report ---
BILATERAL LOWER EXTREMITY VENOUS DOPPLER HISTORY: leg pain COMPARISON STUDY: 10/31/2024 FINDINGS: No evidence of DVT seen in bilateral lower extremities. IMPRESSION: No DVT seen. ACT 112: Negative or not required by law. Electronically signed by: Darien Montes M.D. 11/05/2024 11:47 AM
--- NOTE | 2024-11-08 16:49 | Electrocardiogram Report ---
Test Reason : Blood Pressure : */* mmHG Vent. Rate : 103 BPM Atrial Rate : 103 BPM P-R Int : 166 ms QRS Dur : 96 ms QT Int : 332 ms P-R-T Axes : 63 5 41 degrees QTcB Int : 434 ms Poor data quality, interpretation may be adversely affected Sinus tachycardia Otherwise normal ECG When compared with ECG of 05-Oct-2024 12:10, Vent. rate has increased by 37 bpm QRS axis Shifted right Confirmed by Bob Wasserman ([id number]) on 11/08/2024 4:48:46 PM Referred By: Jv Bella Confirmed By: Bob Wasserman
== END 2024-11-05 14:34 | disposition home health service (06) | DRG 426 ==
LOC: ASU 06:05 → 3W 14:04 → 2E 11-01 19:31 → 3N 11-03 23:54